=== PATIENT | male | born 1975 | race Two or more races ===

== ENCOUNTER 2016-12-17 04:56 | Emergency (ER) | payer MEDICAID ==
[~2016-12-17] VITALS: Ht 175.3 cm; Wt 108.9 kg
[~2016-12-17 04:56] MED LIST: CARI-316; CEPH500C; GLYB5TAB8 PO; METF-370; NAPR-607; PANT1INJ3; Q-PAP; SIMV-13
[2016-12-17 06:45] LABS: Basophils # (auto) 0 uL; Basophils % (auto) 0.2 % (0.0-2.0); CONDITION Y; Eosinophils # (auto) 0.1 uL; Hematocrit 39.9 % (41.0-53.0); Hemoglobin 13.5 g/dL (13.5-17.5); Lymphocytes # (auto) 1.7 uL; Lymphocytes % (auto) 20.5 % (10.0-50.0); Mean Corpuscular Hemoglobin 31.7 pg (28.0-32.0); Mean Corpuscular Hgb Conc. 33.9 g/dL (32.0-36.0); Mean Corpuscular Volume 93.6 fL (80.0-100.0); Mean Platelet Volume 6.9 fL (7.4-10.4); Monocytes # (auto) 0.5 uL; Monocytes % (auto) 6.2 % (0.0-12.0); Neutrophils % (auto) 72.1 % (37.0-80.0); Platelet Count (auto) 239 10^3/uL (140-450); Red Cell Distribution Width 13.7 % (11.6-16.0); White Blood Cell 8.4 10^3/uL (4.4-10.8)
[2016-12-17 07:07] LABS: Albumin 3.7 g/dL (3.4-5.0); BUN/Creatinine Ratio 20.3; Bilirubin, Total 0.6 mg/dL (0.2-1.0); Calcium 8.1 mg/dL (8.5-10.1); Magnesium 2.5 mg/dL (1.6-2.6); Potassium 3.2 mmol/L (3.5-5.1); Total Protein 6.9 g/dL (6.4-8.2)
[2016-12-17] MEDS ORDERED: SODIUM CHLORIDE 0.9% 1,000 ML IV ONE ×2 (07:57)
[2016-12-17] MEDS ORDERED: THIAMINE INJ 100 MG, MULTIPLE VITAMIN 10 ML, FOLIC ACID 1 MG, MAGNESIUM SULF SDV 50% 8 ... IV SCH ×5 (12:00)
[2016-12-17 13:37] VITALS: BP 135/87
[2016-12-17] MEDS ORDERED: POTASSIUM CHL 20 Meq TABLET PO ONE (14:00)
[2016-12-17 14:01] LABS: Urine RBC None Seen /hpf (0 - 3)
[2016-12-17 14:17] LABS: Urine Bilirubin Negative (Negative); Urine Blood Negative /uL (Negative); Urine Color Yellow (Yellow); Urine Glucose Normal (Normal); Urine Ketone Negative (Negative); Urine Mucus FEW (None Seen); Urine Nitrite Negative (Negative); Urine pH 5.5 (5.0-8.0)
== END 2016-12-17 14:47 | disposition home or self-care (01) ==
LOC: ER 04:56
DX: S05.11XA Contusion of eyeball and orbital tissues, right eye, initial encounter (principal); G92 Toxic encephalopathy; R41.82 Altered mental status, unspecified; E11.9 Type 2 diabetes mellitus without complications; I10 Essential (primary) hypertension; Z88.2 Allergy status to sulfonamides; X58.XXXA Exposure to other specified factors, initial encounter; Y93.89 Activity, other specified; Y99.8 Other external cause status; Y92.89 Other specified places as the place of occurrence of the external cause
CPT/HCPCS: 36415; 70450; 80053; 80307; 80320; 81001; 83735; 84484; 85025; 93005; 96361; 96365; 96366; 99285; J3411; J3475; J7030

== ENCOUNTER → 2020-01-28 | Emergency (ER) | payer SELFPAY ==
[~2020-01-28] VITALS: Ht 182.9 cm; Wt 113.4 kg
[~2020-01-28] MED LIST changes: -CARI-316; +CARI350T22; +LORazepam 2MG/ML-1ML VIAL IV ONE; +LORazepam 2MG/ML-1ML VIAL ONE; -NAPR-607; +NAPR500T31; +TETANUS-DIPTH-ACEL PERTUSSIS 0.5ML SYR Tdap IM ONE; +cefTRIAXone 1GM/50ML D5W 50 ML IV ONE
[2020-01-28 22:02] LABS: Basophils # (auto) 0 10 ^3/uL (0-0.2); Basophils % (auto) 0.1 % (0.0-2.0); Eosinophils # (auto) 0 10 ^3/uL (0-0.8); Eosinophils % (auto) 0.3 % (0.0-7.0); Hematocrit 47.4 % (41.0-53.0); Hemoglobin 15.9 g/dL (13.5-17.5); Lymphocytes % (auto) 11.2 % (10.0-50.0); Mean Corpuscular Hemoglobin 31.7 pg (28.0-32.0); Mean Corpuscular Hgb Conc. 33.5 g/dL (32.0-36.0); Mean Corpuscular Volume 94.4 fL (80.0-100.0); Monocytes # (auto) 0.5 10 ^3/uL (0-1.3); Monocytes % (auto) 5.5 % (0.0-12.0); Neutrophils # (auto) 7.6 10 ^3/uL (1.6-8.6); Neutrophils % (auto) 82.9 % (37.0-80.0); Nucleated Red Blood Cells % 0.1 %; Platelet Count (auto) 203 10^3/uL (140-450); Red Blood Cells 5.03 10^6/uL (4.5-5.90); Red Cell Distribution Width 13.6 % (11.8-14.3); White Blood Cell 9.2 10^3/uL (4.4-10.8)
[2020-01-28 22:20] LABS: Albumin 3.5 g/dL (3.4-5.0)
[2020-01-28 22:23] LABS: Bilirubin, Total 0.4 mg/dL (0.2-1.0); Total Protein 6.9 g/dL (6.4-8.2)
[2020-01-29 00:05] VITALS: BP 127/83
[2020-01-29 00:25] LABS: Urine Bacteria FEW /hpf (None Seen); Urine Blood Negative /uL (Negative); Urine Hyaline Cast FEW /lpf (0 - 2); Urine Specific Gravity 1.032 (1.001-1.035); Urine WBC 1 /hpf (0 - 3)
[2020-01-29 00:36] LABS: Amphetamine Screen, Urine NEGATIVE (NEGATIVE); Barbiturate Scree,Urine NEGATIVE (NEGATIVE); Benzodiazephine Screen, Urine NEGATIVE (NEGATIVE); Cannabinoid Screen, Urine POSITIVE (NEGATIVE); Cocaine Screen, Urine NEGATIVE (NEGATIVE); Opiate Scree,Urine NEGATIVE (NEGATIVE); Phencyclidine Screen, Urine NEGATIVE (NEGATIVE)
== END | disposition home or self-care (01) ==
LOC: EDUNIT# 19:39 → EDBD 19:49 → ER 19:49
DX: S06.5X9A Traumatic subdural hemorrhage with loss of consciousness of unspecified duration, initial encounter (principal); S09.90XA Unspecified injury of head, initial encounter; H57.89 Other specified disorders of eye and adnexa; F10.920 Alcohol use, unspecified with intoxication, uncomplicated; E11.9 Type 2 diabetes mellitus without complications; I10 Essential (primary) hypertension; Z79.899 Other long term (current) drug therapy; Z79.84 Long term (current) use of oral hypoglycemic drugs; Z88.2 Allergy status to sulfonamides; V29.9XXA Motorcycle rider (driver) (passenger) injured in unspecified traffic accident, initial encounter; Y93.89 Activity, other specified; Y92.89 Other specified places as the place of occurrence of the external cause; Y99.8 Other external cause status
CPT/HCPCS: 36415; 70450; 70486; 72125; 72131; 80053; 80307; 80320; 81001; 82962; 85025; 90471; 90715; 96365; 96375; 99285; J0696; J2060

== ENCOUNTER 2020-02-06 02:41 | Emergency (ER) | payer SELFPAY ==
[~2020-02-06] VITALS: Ht 182.9 cm; Wt 136.1 kg
[~2020-02-06 02:41] MED LIST changes: -LORazepam 2MG/ML-1ML VIAL IV ONE; -LORazepam 2MG/ML-1ML VIAL ONE; -TETANUS-DIPTH-ACEL PERTUSSIS 0.5ML SYR Tdap IM ONE; -cefTRIAXone 1GM/50ML D5W 50 ML IV ONE
[2020-02-06] MEDS ORDERED: InsuLIN REG 1unit/0.01ml Soln (100units/ml) IV ONE (03:45)
[2020-02-06] MEDS ORDERED: SODIUM CHLORIDE 0.9% 1,000 ML IV ONE (03:45)
[2020-02-06 04:07] LABS: Basophils # (auto) 0 10 ^3/uL (0-0.2); Basophils % (auto) 0.4 % (0.0-2.0); Eosinophils # (auto) 0 10 ^3/uL (0-0.8); Eosinophils % (auto) 0.2 % (0.0-7.0); Hematocrit 50.3 % (41.0-53.0); Hemoglobin 17.2 g/dL (13.5-17.5); Lymphocytes # (auto) 2.2 10 ^3/uL (0.4-5.4); Lymphocytes % (auto) 18.2 % (10.0-50.0); Mean Corpuscular Hemoglobin 32.1 pg (28.0-32.0); Mean Corpuscular Hgb Conc. 34.2 g/dL (32.0-36.0); Mean Corpuscular Volume 93.8 fL (80.0-100.0); Monocytes # (auto) 0.9 10 ^3/uL (0-1.3); Monocytes % (auto) 7.7 % (0.0-12.0); Neutrophils % (auto) 73.5 % (37.0-80.0); Nucleated Red Blood Cells % 0.6 %; Platelet Count (auto) 331 10^3/uL (140-450); Red Blood Cells 5.36 10^6/uL (4.5-5.90); Red Cell Distribution Width 13.7 % (11.8-14.3); White Blood Cell 12.2 10^3/uL (4.4-10.8)
[2020-02-06 04:15] VITALS: BP 142/70
[2020-02-06 04:27] LABS: Albumin 4.5 g/dL (3.4-5.0); Calcium 9.3 mg/dL (8.5-10.1); Potassium 4.1 mmol/L (3.5-5.1)
[2020-02-06 04:30] LABS: BUN/Creatinine Ratio 10.8; Bilirubin, Total 0.4 mg/dL (0.2-1.0); Total Protein 8.5 g/dL (6.4-8.2)
[2020-03-07] MEDS ORDERED: GLIP5TAB12 PO (09:25)
[2020-03-07] MEDS ORDERED: METF-372 PO (09:25)
[2020-03-07] MEDS ORDERED: SIMV40TA96 PO (09:25)
[2020-03-07] MEDS ORDERED: PANT40TA2 PO (09:26)
[2020-03-07] MEDS ORDERED: GLYB5TAB8 PO (11:31)
== END 2020-02-06 05:16 ==
LOC: ER 02:43
DX: E11.65 Type 2 diabetes mellitus with hyperglycemia (principal); I10 Essential (primary) hypertension; E86.0 Dehydration; Z79.899 Other long term (current) drug therapy; Z79.84 Long term (current) use of oral hypoglycemic drugs
CPT/HCPCS: 36415; 80053; 82962; 85025; 96361; 96374; 99283; J1815

== ENCOUNTER 2020-03-05 19:54 | Inpatient (IN) | payer MEDICAID, OTHER ==
[~2020-03-05] VITALS: Ht 190.5 cm; Wt 90.7 kg
[2020-03-05] MEDS ORDERED: SODIUM CHLORIDE 0.9% 1,000 ML IV ONE (20:15)
[2020-03-05] MEDS ORDERED: InsuLIN REG 1unit/0.01ml Soln (100units/ml) IV ONE (20:15)
[2020-03-05 21:25] LABS: Basophils # (auto) 0 10 ^3/uL (0-0.2); Basophils % (auto) 0.3 % (0.0-2.0); Eosinophils # (auto) 0 10 ^3/uL (0-0.8); Eosinophils % (auto) 0.4 % (0.0-7.0); Hematocrit 49.2 % (41.0-53.0); Hemoglobin 16.1 g/dL (13.5-17.5); Lymphocytes # (auto) 1.3 10 ^3/uL (0.4-5.4); Lymphocytes % (auto) 25.6 % (10.0-50.0); Mean Corpuscular Hemoglobin 30.8 pg (28.0-32.0); Mean Corpuscular Hgb Conc. 32.6 g/dL (32.0-36.0); Mean Corpuscular Volume 94.4 fL (80.0-100.0); Monocytes # (auto) 0.3 10 ^3/uL (0-1.3); Monocytes % (auto) 6.4 % (0.0-12.0); Neutrophils # (auto) 3.3 10 ^3/uL (1.6-8.6); Neutrophils % (auto) 67.3 % (37.0-80.0); Nucleated Red Blood Cells % 0.1 %; Platelet Count (auto) 219 10^3/uL (140-450); Red Blood Cells 5.21 10^6/uL (4.5-5.90); Red Cell Distribution Width 14.1 % (11.8-14.3); White Blood Cell 4.9 10^3/uL (4.4-10.8)
[2020-03-05 21:36] LABS: Urine WBC None Seen /hpf (0 - 3)
[2020-03-05 22:25] LABS: Urine Bacteria NONE SEEN /hpf (None Seen); Urine Blood Negative /uL (Negative); Urine Specific Gravity 1.036 (1.001-1.035)
[2020-03-05 22:39] LABS: Albumin 3.6 g/dL (3.4-5.0); Anion Gap 9 (5-15); Blood Urea Nitrogen 11 mg/dL (7-18); Calcium 8.7 mg/dL (8.5-10.1); Carbon Dioxide 24 mmol/L (21-32); Chloride 104 mmol/L (98-107); Potassium 3.9 mmol/L (3.5-5.1); Sodium 137 mmol/L (136-145)
[2020-03-05 22:42] LABS: Alanine Aminotransferase 60 U/L (16-61); Alkaline Phosphatase 111 U/L (45-117); Aspartate Aminotransferase 32 U/L (15-37); BUN/Creatinine Ratio 12.9; Bilirubin, Total 0.3 mg/dL (0.2-1.0); GFR African American 125 mL/min; GFR Non-African American 103 mL/min; Magnesium 2.6 mg/dL (1.6-2.6); Total Protein 7.3 g/dL (6.4-8.2)
[2020-03-05 23:00] LABS: Glucose 479 mg/dL (74-106)
[2020-03-06 02:35] LABS: INR 0.97 (0.9-1.15); Partial Thromboplastin Time 23.7 sec (23.0-31.2)
[2020-03-06] MEDS ORDERED: ONDANSETRON HCL 4 MG/2 ML VIAL IV PRN (03:15)
[2020-03-06 04:15] VITALS: BP 127/71
[2020-03-06 05:00] VITALS: BP 127/79
[2020-03-06 08:35] VITALS: BP 117/68
[2020-03-06] MEDS: FAMOTIDINE 20 MG TAB PO SCH ×2 (09:06→22:20)
[2020-03-06 13:00] VITALS: BP 135/96
[2020-03-06] MEDS ORDERED: DEXTROSE (50%) 50ML SYRG IV PRN (14:30)
[2020-03-06 15:26] LABS: Alcohol, Urine < 3.0 mg/dL (0-10); Amphetamine Screen, Urine NEGATIVE (NEGATIVE); Barbiturate Scree,Urine NEGATIVE (NEGATIVE); Cannabinoid Screen, Urine POSITIVE (NEGATIVE); Cocaine Screen, Urine NEGATIVE (NEGATIVE); Opiate Scree,Urine NEGATIVE (NEGATIVE); Phencyclidine Screen, Urine NEGATIVE (NEGATIVE)
[2020-03-06 15:33] LABS: Benzodiazephine Screen, Urine NEGATIVE (NEGATIVE)
[2020-03-06 16:32] VITALS: BP 147/88
[2020-03-06] MEDS ORDERED: glipiZIDE 5 MG TAB PO SCH (18:00)
[2020-03-06] MEDS: InsuLIN REG 1unit/0.01ml Soln (100units/ml) SC SCH ×2 (18:08→22:20)
[2020-03-06] MEDS: ACCU-CHEK COMFORT CURVE STRIP VI SCH ×2 (18:09→22:20)
[2020-03-06] MEDS: metFORMIN HYDROCHLORIDE 500 MG TAB PO SCH (18:09)
[2020-03-06 21:53] VITALS: BP 139/81
[2020-03-07 05:29] VITALS: BP 139/85
[2020-03-07] MEDS: InsuLIN REG 1unit/0.01ml Soln (100units/ml) SC SCH ×2 (06:35→12:03)
[2020-03-07] MEDS: ACCU-CHEK COMFORT CURVE STRIP VI SCH ×2 (06:37→12:04)
[2020-03-07 07:19] LABS: BUN/Creatinine Ratio 17.6; Potassium 4.4 mmol/L (3.5-5.1)
[2020-03-07 07:23] LABS: Cholesterol 235 mg/dL (< 200); HDL Cholesterol 47 mg/dL (40-59); LDL Cholesterol 170 mg/dL (< 100); Triglycerides 213 mg/dL (< 150)
[2020-03-07] MEDS: metFORMIN HYDROCHLORIDE 500 MG TAB PO SCH (08:27)
[2020-03-07 09:00] VITALS: BP 124/72
[2020-03-07] MEDS ORDERED: METF-372 PO (09:25)
[2020-03-07] MEDS ORDERED: SIMV40TA96 PO (09:25)
[2020-03-07] MEDS ORDERED: GLIP5TAB12 PO (09:25)
[2020-03-07] MEDS ORDERED: PANT40TA2 PO (09:26)
[2020-03-07] MEDS: FAMOTIDINE 20 MG TAB PO SCH (09:43)
[2020-03-07] MEDS ORDERED: GLYB5TAB8 PO (11:31)
[2020-03-07 13:00] VITALS: BP 105/50
[2020-03-07 14:00] VITALS: BP 124/79
== END 2020-03-07 15:40 | disposition home or self-care (01) | DRG 420 ==
LOC: EDBD 19:54 → ER 19:54 → OVERFLOW 19:55 → CENTRAL 03-06 04:04
PROVIDERS: ADMIT Nurse Practitioner; ATTEND Internal Medicine
DX: E11.65 Type 2 diabetes mellitus with hyperglycemia (principal); I10 Essential (primary) hypertension; E78.5 Hyperlipidemia, unspecified; F84.0 Autistic disorder; Z83.3 Family history of diabetes mellitus; Z79.84 Long term (current) use of oral hypoglycemic drugs; Z91.19 Patient's noncompliance with other medical treatment and regimen; E66.9 Obesity, unspecified; Z68.25 Body mass index [BMI] 25.0-25.9, adult; Z88.2 Allergy status to sulfonamides; Z88.8 Allergy status to other drugs, medicaments and biological substances
CPT/HCPCS: 36415; 71045; 80048; 80053; 80061; 80307; 81001; 82010; 82962; 83036; 83735; 83880; 84443; 84484; 85025; 85610; 85730; 93005; 96361; 96374; 99291; G0378; J1815

== ENCOUNTER 2021-06-07 14:52 | Emergency (ER) | payer OTHER ==
[~2021-06-07] VITALS: Ht 170.2 cm; Wt 90.7 kg
[~2021-06-07 14:52] MED LIST changes: -METF-370; +METF-372 PO; +PANT40TA2 PO; +SIMV40TA2 PO
[2021-06-07 15:00] VITALS: BP 113/57
[2021-06-07] MEDS ORDERED: DEXTROSE (50%) 50ML SYRG IV PRN (15:15)
[2021-06-07] MEDS ORDERED: INSULIN LANTUS (GLARGINE) 1 /0.01ml (100units/ml) SC ONE (15:15)
[2021-06-07] MEDS ORDERED: SODIUM CHLORIDE 0.9% 1,000 ML IV ONE ×2 (15:15)
[2021-06-07] MEDS ORDERED: InsuLIN R (HUMAN) 100 UNITS in SODIUM CHL 0.9% 99 ML IV SCH (15:15)
[2021-06-07] MEDS ORDERED: ACCU-CHEK COMFORT CURVE STRIP VI SCH (16:30)
[2021-06-08] MEDS ORDERED: INSULIN LANTUS (GLARGINE) 1 /0.01ml (100units/ml) SC SCH (10:00)
== END 2021-06-07 18:53 | disposition left against medical advice (07) ==
LOC: ER 14:52 → EDBD 14:52 → ER 18:53
DX: E11.10 Type 2 diabetes mellitus with ketoacidosis without coma (principal); F10.129 Alcohol abuse with intoxication, unspecified; I10 Essential (primary) hypertension; R41.82 Altered mental status, unspecified; Y90.8 Blood alcohol level of 240 mg/100 ml or more
CPT/HCPCS: 36600; 71045; 82805; 99283; J1815

== ENCOUNTER 2021-07-23 19:22 | Inpatient (IN) | payer OTHER ==
[~2021-07-23] VITALS: Ht 182.9 cm; Wt 120.2 kg
[2021-07-23] MEDS ORDERED: ONDANSETRON HCL 4 MG/2 ML VIAL IV ONE (20:30)
[2021-07-23] MEDS ORDERED: FAMOTIDINE (10MG/ML) 2ML VL IV ONE (20:30)
[2021-07-23] MEDS ORDERED: ALUM & MAG HYDROX-SIMETH LIQ(MAALOX) 30 ML PO ONE (20:30)
[2021-07-23 23:39] LABS: Basophils # (auto) 0.2 10 ^3/uL (0-0.2); Eosinophils # (auto) 0 10 ^3/uL (0-0.8); Hematocrit 39.6 % (41.0-53.0); Hemoglobin 13.4 g/dL (13.5-17.5); Lymphocytes # (auto) 0.8 10 ^3/uL (0.4-5.4); Lymphocytes % (auto) 4.7 % (10.0-50.0); Mean Corpuscular Volume 91.3 fL (80.0-100.0); Monocytes # (auto) 1.3 10 ^3/uL (0-1.3); Monocytes % (auto) 7.5 % (0.0-12.0); Neutrophils # (auto) 14.8 10 ^3/uL (1.6-8.6); Neutrophils % (auto) 86.8 % (37.0-80.0); Red Blood Cells 4.33 10^6/uL (4.5-5.90)
[2021-07-23] MEDS ORDERED: KETOROLAC TROMETH 30 MG/ML 1ML VIAL IM ONE (23:45)
[2021-07-23 23:46] LABS: Albumin 1.9 g/dL (3.4-5.0); Calcium 7.1 mg/dL (8.5-10.1); Potassium 3.1 mmol/L (3.5-5.1)
[2021-07-23 23:54] LABS: BUN/Creatinine Ratio 17.1; Bilirubin, Total 1.2 mg/dL (0.2-1.0); Total Protein 5.7 g/dL (6.4-8.2)
[2021-07-24] MEDS ORDERED: KETOROLAC TROMETH 30 MG/ML 1ML VIAL IV ONE (00:15)
[2021-07-24] MEDS ORDERED: POTASSIUM EFFERVESENT TAB 25 MEQ PO ONE (01:00)
[2021-07-24] MEDS: POTASSIUM CHL 10MEQ/50ML 50 ML IV SCH ×2 (01:45→02:39)
[2021-07-24 02:11] LABS: Urine Bacteria NONE SEEN /hpf (None Seen); Urine Blood 2+ /uL (Negative); Urine Specific Gravity 1.015 (1.001-1.035); Urine WBC 1832 /hpf (0 - 3); Urine WBC Clumps PRESENT /hpf (None Seen)
[2021-07-24] MEDS ORDERED: cefTRIAXone 1GM/50ML D5W 50 ML IV ONE (02:15)
[2021-07-24] MEDS ORDERED: DEXTROSE (50%) 50ML SYRG IV PRN (02:30)
[2021-07-24] MEDS ORDERED: ACETAMINOPHEN 325 MG TAB PO PRN (02:30)
[2021-07-24] MEDS ORDERED: DOCUSATE SOD 100 MG CAP PO PRN (02:30)
[2021-07-24] MEDS ORDERED: SODIUM CHLORIDE 0.9% 1,000 ML IV SCH (02:30)
[2021-07-24] MEDS ORDERED: ONDANSETRON HCL 4 MG/2 ML VIAL IV PRN (02:30)
[2021-07-24] MEDS ORDERED: ALBUMIN 25% 100 ML IV ONE (03:00)
[2021-07-24] MEDS ORDERED: MORPHINE SULFATE INJECTION 2 MG/ML SYRG IV PRN (03:30)
[2021-07-24] MEDS ORDERED: NITROGLYCERIN 0.4 MG SL TAB SL PRN (03:30)
[2021-07-24 06:04] LABS: Basophils # (auto) 0 10 ^3/uL (0-0.2); Basophils % (auto) 0.1 % (0.0-2.0); Eosinophils # (auto) 0 10 ^3/uL (0-0.8); Eosinophils % (auto) 0.1 % (0.0-7.0); Hematocrit 43.3 % (41.0-53.0); Hemoglobin 14.5 g/dL (13.5-17.5); Lymphocytes # (auto) 1.3 10 ^3/uL (0.4-5.4); Lymphocytes % (auto) 8.8 % (10.0-50.0); Mean Corpuscular Hemoglobin 31.1 pg (28.0-32.0); Mean Corpuscular Hgb Conc. 33.5 g/dL (32.0-36.0); Mean Corpuscular Volume 92.7 fL (80.0-100.0); Monocytes # (auto) 1.4 10 ^3/uL (0-1.3); Monocytes % (auto) 9.6 % (0.0-12.0); Neutrophils # (auto) 12.1 10 ^3/uL (1.6-8.6); Neutrophils % (auto) 81.4 % (37.0-80.0); Nucleated Red Blood Cells % 0.1 %; Red Blood Cells 4.67 10^6/uL (4.5-5.90); Red Cell Distribution Width 12.9 % (11.8-14.3); White Blood Cell 14.9 10^3/uL (4.4-10.8)
[2021-07-24 06:29] LABS: Albumin 2.6 g/dL (3.4-5.0); Calcium 8.6 mg/dL (8.5-10.1); Potassium 3.3 mmol/L (3.5-5.1)
[2021-07-24 06:31] LABS: BUN/Creatinine Ratio 16.2
[2021-07-24 06:49] LABS: Bilirubin, Total 1.2 mg/dL (0.2-1.0); Total Protein 6.6 g/dL (6.4-8.2)
[2021-07-24] MEDS: InsuLIN REG 1unit/0.01ml Soln (100units/ml) SC SCH ×4 (07:00→23:56)
[2021-07-24] MEDS: ACCU-CHEK COMFORT CURVE STRIP VI SCH ×4 (07:25→23:56)
[2021-07-24] MEDS: FAMOTIDINE (10MG/ML) 2ML VL IV SCH ×2 (09:42→23:54)
[2021-07-24] MEDS: SODIUM CHLORIDE 0.9% 1,000 ML IV SCH ×2 (12:30→13:30)
[2021-07-24 13:00] VITALS: BP_SYST 107; BP_SYST 126; BP_DIAS 69; BP_DIAS 70
[2021-07-24 17:12] VITALS: BP 124/52
[2021-07-24] MEDS: HYDROcodone-ACET 5/325MG TAB PO PRN (19:32)
[2021-07-24 22:00] VITALS: BP 96/57
[2021-07-25 05:00] VITALS: BP 118/42
[2021-07-25 06:23] LABS: Basophils # (auto) 0 10 ^3/uL (0-0.2); Basophils % (auto) 0.2 % (0.0-2.0); Eosinophils # (auto) 0 10 ^3/uL (0-0.8); Eosinophils % (auto) 0.1 % (0.0-7.0); Hematocrit 43.6 % (41.0-53.0); Hemoglobin 14.9 g/dL (13.5-17.5); Lymphocytes # (auto) 0.8 10 ^3/uL (0.4-5.4); Lymphocytes % (auto) 5.8 % (10.0-50.0); Mean Corpuscular Hgb Conc. 34.2 g/dL (32.0-36.0); Mean Corpuscular Volume 90.7 fL (80.0-100.0); Monocytes # (auto) 1.5 10 ^3/uL (0-1.3); Monocytes % (auto) 10.8 % (0.0-12.0); Neutrophils # (auto) 11.7 10 ^3/uL (1.6-8.6); Neutrophils % (auto) 83.1 % (37.0-80.0); Nucleated Red Blood Cells % 0.1 %; Red Blood Cells 4.81 10^6/uL (4.5-5.90); Red Cell Distribution Width 13.1 % (11.8-14.3); White Blood Cell 14.1 10^3/uL (4.4-10.8)
[2021-07-25] MEDS: InsuLIN REG 1unit/0.01ml Soln (100units/ml) SC SCH ×4 (06:25→22:07)
[2021-07-25] MEDS: ACCU-CHEK COMFORT CURVE STRIP VI SCH ×4 (06:25→22:08)
[2021-07-25] MEDS: HYDROcodone-ACET 5/325MG TAB PO PRN ×2 (06:26→16:33)
[2021-07-25 06:33] LABS: Potassium 3.4 mmol/L (3.5-5.1)
[2021-07-25 06:41] LABS: Albumin 2.4 g/dL (3.4-5.0); BUN/Creatinine Ratio 16.9; Bilirubin, Total 1.3 mg/dL (0.2-1.0); Calcium 8.4 mg/dL (8.5-10.1); Total Protein 7.1 g/dL (6.4-8.2)
[2021-07-25 09:00] VITALS: BP 100/61
[2021-07-25] MEDS: FAMOTIDINE (10MG/ML) 2ML VL IV SCH ×2 (09:44→22:07)
[2021-07-25] MEDS: cefTRIAXone 1GM/50ML D5W 50 ML IV SCH (09:44)
[2021-07-25] MEDS: SODIUM CHLORIDE 0.9% 1,000 ML IV SCH ×3 (09:52→22:06)
[2021-07-25 12:53] VITALS: BP 105/72
[2021-07-25 16:32] VITALS: BP 122/81
[2021-07-26] MEDS: SODIUM CHLORIDE 0.9% 1,000 ML IV SCH ×3 (01:57→18:03)
[2021-07-26 05:51] VITALS: BP 120/76
[2021-07-26] MEDS: HYDROcodone-ACET 5/325MG TAB PO PRN ×3 (06:15→21:59)
[2021-07-26] MEDS: ACCU-CHEK COMFORT CURVE STRIP VI SCH ×4 (06:15→22:34)
[2021-07-26] MEDS: InsuLIN REG 1unit/0.01ml Soln (100units/ml) SC SCH ×4 (06:16→22:35)
[2021-07-26 09:00] VITALS: BP 135/63
[2021-07-26] MEDS: cefTRIAXone 1GM/50ML D5W 50 ML IV SCH (09:11)
[2021-07-26] MEDS: FAMOTIDINE (10MG/ML) 2ML VL IV SCH ×2 (09:11→22:33)
[2021-07-26 13:28] VITALS: BP 158/79
[2021-07-26 17:26] VITALS: BP 128/89
[2021-07-26 22:00] VITALS: BP 114/67
[2021-07-27] MEDS: SODIUM CHLORIDE 0.9% 1,000 ML IV SCH ×2 (00:30→08:36)
[2021-07-27] MEDS: HYDROcodone-ACET 5/325MG TAB PO PRN (02:33)
[2021-07-27 05:00] VITALS: BP 128/91
[2021-07-27] MEDS: ACCU-CHEK COMFORT CURVE STRIP VI SCH ×2 (06:39→12:49)
[2021-07-27] MEDS: InsuLIN REG 1unit/0.01ml Soln (100units/ml) SC SCH ×2 (06:40→12:51)
[2021-07-27 08:00] VITALS: BP 147/66
[2021-07-27] MEDS: cefTRIAXone 1GM/50ML D5W 50 ML IV SCH (08:37)
[2021-07-27] MEDS: FAMOTIDINE (10MG/ML) 2ML VL IV SCH (09:23)
[2021-07-27] MEDS ORDERED: TRAM50TA2 PO (11:00)
[2021-07-27] MEDS ORDERED: CIPR-173 PO (11:00)
[2021-07-27 12:00] VITALS: BP 125/74
[2021-07-27 12:31] VITALS: BP 147/66
== END 2021-07-27 18:14 | disposition home or self-care (01) | DRG 720 ==
LOC: EDBD 19:22 → ER 19:26 → OVERFLOW 07-24 03:28 → WEST WING 07-24 10:54
PROVIDERS: ADMIT Nurse Practitioner Family; ATTEND Family Medicine
DX: A41.9 Sepsis, unspecified organism (principal); E44.0 Moderate protein-calorie malnutrition; E11.21 Type 2 diabetes mellitus with diabetic nephropathy; E11.40 Type 2 diabetes mellitus with diabetic neuropathy, unspecified; E87.1 Hypo-osmolality and hyponatremia; E88.09 Other disorders of plasma-protein metabolism, not elsewhere classified; N12 Tubulo-interstitial nephritis, not specified as acute or chronic; B96.20 Unspecified Escherichia coli [E. coli] as the cause of diseases classified elsewhere; Z20.822 Contact with and (suspected) exposure to COVID-19; E87.6 Hypokalemia; K74.60 Unspecified cirrhosis of liver; I10 Essential (primary) hypertension; Z79.84 Long term (current) use of oral hypoglycemic drugs; Z68.35 Body mass index [BMI] 35.0-35.9, adult; Z83.3 Family history of diabetes mellitus
CPT/HCPCS: 36415; 36600; 74176; 80053; 81001; 82010; 82140; 82805; 82962; 83036; 83605; 83690; 84484; 85025; 87040; 87086; 87088; 87186; 87426; 93005; 96365; 96368; 96375; G0378; J0696; J1815; J1885; J2405; J3490; P9047

== ENCOUNTER 2022-02-20 00:49 | Emergency (ER) | payer OTHER ==
[~2022-02-20] VITALS: Ht 182.9 cm; Wt 95.0 kg
[~2022-02-20 00:49] MED LIST changes: -CARI350T22; -CEPH500C; +CIPR-173 PO; -GLYB5TAB8 PO; -METF-372 PO; -NAPR500T31; -PANT1INJ3; -PANT40TA2 PO; -Q-PAP; -SIMV-13; -SIMV40TA2 PO; +TRAM50TA2 PO
[2022-02-20 01:57] VITALS: BP 124/86
[2022-02-20] MEDS ORDERED: cefTRIAXone SOD 1,000 MG VL IM ONE (04:00)
[2022-02-20] MEDS ORDERED: KETOROLAC TROMETH 30 MG/ML 1ML VIAL IM ONE (04:00)
[2022-02-20] MEDS ORDERED: IBUP800T26 PO (04:17)
[2022-02-20] MEDS ORDERED: CLIN300C8 PO (04:17)
== END 2022-02-20 04:49 | disposition home or self-care (01) ==
LOC: EDBD 00:49 → ER 00:49
DX: L03.221 Cellulitis of neck (principal); L73.9 Follicular disorder, unspecified; R23.8 Other skin changes
CPT/HCPCS: 96372; 99284; J0696; J1885

== ENCOUNTER 2022-10-10 01:49 | Emergency (ER) | payer OTHER ==
[~2022-10-10] VITALS: Ht 180.3 cm; Wt 90.0 kg
[~2022-10-10 01:49] MED LIST changes: +CLIN300C8 PO; +IBUP800T26 PO
[2022-10-10 02:07] VITALS: BP 137/87
[2022-10-10] MEDS ORDERED: SODIUM CHLORIDE 0.9% 2,000 ML IV ONE (02:15)
[2022-10-10 02:32] LABS: Basophils # (auto) 0 10 ^3/uL (0-0.2); Basophils % (auto) 0.5 % (0.0-2.0); Eosinophils # (auto) 0 10 ^3/uL (0-0.8); Eosinophils % (auto) 0.4 % (0.0-7.0); Hematocrit 47.8 % (41.0-53.0); Hemoglobin 15.5 g/dL (13.5-17.5); Lymphocytes # (auto) 1.7 10 ^3/uL (0.4-5.4); Lymphocytes % (auto) 26.9 % (10.0-50.0); Mean Corpuscular Hemoglobin 31.1 pg (28.0-32.0); Mean Corpuscular Hgb Conc. 32.5 g/dL (32.0-36.0); Mean Corpuscular Volume 95.5 fL (80.0-100.0); Monocytes # (auto) 0.4 10 ^3/uL (0-1.3); Neutrophils % (auto) 65.2 % (37.0-80.0); Nucleated Red Blood Cells % 0.2 %; Red Cell Distribution Width 13.1 % (11.8-14.3); White Blood Cell 6.2 10^3/uL (4.4-10.8)
[2022-10-10 02:47] LABS: INR 0.9 (0.9-1.15); Partial Thromboplastin Time 24.8 sec (24.6-33.4)
[2022-10-10 04:11] LABS: BUN/Creatinine Ratio 15.7 (10.0-20.0); Bilirubin, Total 0.3 mg/dL (0.2-1.0)
[2022-10-10 04:12] LABS: Albumin 3.3 g/dL (3.4-5.0); Magnesium 2.5 mg/dL (1.6-2.6); Total Protein 7.8 g/dL (6.4-8.2)
== END 2022-10-10 05:10 | disposition left against medical advice (07) ==
LOC: ER 01:49 → EDBD 01:49 → ER 05:10
DX: E11.10 Type 2 diabetes mellitus with ketoacidosis without coma (principal); E11.65 Type 2 diabetes mellitus with hyperglycemia; E86.0 Dehydration; F12.10 Cannabis abuse, uncomplicated; I10 Essential (primary) hypertension; R06.02 Shortness of breath; Z88.2 Allergy status to sulfonamides
CPT/HCPCS: 36415; 36600; 71045; 80053; 82010; 82805; 83735; 83880; 84484; 85025; 85610; 85730; 96360; 96361; 99284; J7030

== ENCOUNTER 2024-05-02 09:16 | Inpatient (IN) | payer OTHER ==
[~2024-05-02] VITALS: Ht 182.9 cm; Wt 95.6 kg
[~2024-05-02 09:16] MED LIST changes: +CLIN1CAP70 PO; -CLIN300C8 PO; +IBUP-1455 PO; -IBUP800T26 PO
--- NOTE | 2024-05-02 09:31 | ED.PDOC ---
Musculoskeletal HPI Comments 49 year old male BRANDON presents to the ED with chief complaint of right foot pain. Patient reports that he has been experiencing worsening right foot pain with associated redness, swelling, and discharge noted to the toes for the past 2 months. EMS relays patient is homeless and has history of DM, however, he is not taking any medication. Patient denies any numbness, weakness, fever, or chills. Time Seen by MD: 09:28 Reviewed Notes: Nurses Notes, Baked And Graphite Inspector Notes, Medications, Allergies Allergies: Coded Allergies: Sulfamethoxazole w/Trimethoprim (Verified Allergy, Severe, 03/06/20) PRURITUS, THROAT SWELLING Home Meds Active Scripts Ibuprofen Micronized (Ibuprofen) 800 Mg Tab, 800 MG PO TID PRN, #30 TAB Prov:CIELO MENDEZP 02/20/22 Clindamycin Hcl (Clindamycin Hcl) 300 Mg Cap, 1 CAP PO TID for 7 Days, #21 CAP Prov:CIELO MENDEZ 02/20/22 Tramadol Hcl (Tramadol Hcl) 50 Mg Tab, 50 MG PO TID, #30 TAB Prov:DEBRA AGUILLON MD 07/27/21 Ciprofloxacin Hcl (Cipro) 500 Mg Tab, 1 TAB PO BID, #20 TAB Prov:DEBRA AGUILLON MD 07/27/21 Information Source: Patient, Emergency Med Personnel Mode of Arrival: EMS Location: Right Extremity Location: Foot Timing: Months Prehospital treatment: None Severity: Moderate Able to Move Extremity: Yes Bear Weight: Limited Pain: Moderate Mechanism: Spontaneous Circumstances: Preceding Wound Onset of Symptoms: Spontaneous Symptoms: Swelling, Pain, Erythema DVT Risk Factors: NONE Associated signs and symptoms: Swelling, Foot pain Past Medical History PAST MEDICAL HISTORY: DM, HTN Surgical History: Denies all surgeries Family History Family History: Reviewed,noncontributory to illness Social History Smoker: Non-Smoker Alcohol: Heavy Drugs: Marijuana Lives In: Home Constitutional: denies: chills, diaphoresis, fatigue, fever, malaise, sweats, weakness, others EENTM: denies: blurred vision, double vision, ear bleeding, ear discharge, ear drainage, ear pain, ear ringing, eye pain, eye redness, hearing loss, mouth pain, mouth swelling, nasal discharge, nose bleeding, nose congestion, nose pain, photophobia, tearing, throat pain, throat swelling, voice changes, others Respiratory: denies: cough, hemoptysis, orthopnea, SOB at rest, shortness of breath, SOB with excertion, stridor, wheezing, others Cardiovascular: denies: chest pain, dizzy spells, diaphoresis, Dyspnea on exertion, edema, irregular heart beat, left arm pain, lightheadedness, palpitations, PND, syncope, others Gastrointestinal: denies: abdomen distended, abdominal pain, blood streaked bowels, constipated, diarrhea, dysphagia, difficulty swallowing, hematemesis, melena, nausea, poor appetite, poor fluid intake, rectal bleeding, rectal pain, vomiting, others Genitourinary: denies: burning, dysuria, flank pain, frequency, hematuria, incontinence, penile discharge, penile sore, pain, testicle pain, testicle swelling, urgency, others Musculoskeletal: reports: others (Rt foot redness, swelling, and pain); denies: back pain, gout, joint pain, joint swelling, muscle pain, muscle stiffness, neck pain Integumetry: denies: bruises, change in color, change in hair/nails, dryness, laceration, lesions, lumps, rash, wounds, others Allergic/Immunocompromised: denies: Difficulty Healing, Frequent Infections, Hives, Itching, others Hematologic/Lymphatic: denies: anemia, blood clots, easy bleeding, easy bruising, swollen glands, others Endocrine: denies: excessive hunger, excessive sweating, excessive thirst, excessive urination, flushing, intolerance to cold, intolerance to heat, unexplained weight gain, unexplained weight loss, others Psychiatric: denies: anxiety, bipolar disorder, depression, hopeless, panic disorder, schizophrenia, sleepless, suicidal, others All Other Systems: Reviewed and Negative Physical Exam General Appearance: Moderate Distress, Normal HEENT: Normal ENT Inspection, PERRL/EOMI Neck: Full Range of Motion, Non-Tender, Normal, Normal Inspection Respiratory: Chest Non-Tender, Lungs Clear, No Accessory Muscle Use, No Respiratory Distress, Normal Breath Sounds Cardiovascular: No Edema, No JVD, No Murmur, No Gallop, Normal Peripheral Pulses, Regular Rate/Rhythm Breast Exam: Deferred Gastrointestinal: No Organomegaly, Non Tender, No Pulsatile Mass, Normal Bowel Sounds, Soft Genitalia: Deferred Pelvic: Deferred Rectal: Deferred Extremities: No calf tenderness, Normal capillary refill, Normal range of motion, Non-tender, No pedal edema, Pedal edema (Right ) Musculoskeletal : Apperance: Normal Neurologic: Alert, chair springer II-XII nml as Tested, No Motor Deficits, Normal Affect, Normal Mood, No Sensory Deficits Cerebellar Function: NOT DONE Reflexes: NOT DONE Skin: Dry, Normal Color, Warm, Wounds (Right foot) Peripheral Pulses: 3+ Radial (R), 3+ Radial (L) Lymphatic: No Adenopathy Was a procedure done? Was a procedure done?: No Differential Diagnosis EXT Differential Diagnosis: Cellulitis, Sprain, Strain X-Ray, Labs, Meds, VS Vital Signs Date Time Temp Pulse Resp B/P (MAP) Pulse Ox O2 Delivery O2 Flow Rate FiO2 05/02/24 10:55 86 16 120/86 (97) 97 05/02/24 10:55 86 16 97 Room Air 05/02/24 09:59 97.7 90 20 113/80 (91) 96 Lab Test 05/02/24 11:34 05/02/24 10:05 Range/Units POC Glucose 457 *H 70-106 mg/dl White Blood Count 4.7 4.4-10.8 10^3/uL Red Blood Count 5.18 4.5-5.90 10^6/uL Hemoglobin 16.1 13.5-17.5 g/dL Hematocrit 46.3 41.0-53.0 % Mean Corpuscular Volume 89.2 80.0-100.0 fL Mean Corpuscular Hemoglobin 31.0 28.0-32.0 pg Mean Corpuscular Hemoglobin Concent 34.7 32.0-36.0 g/dL Red Cell Distribution Width 13.1 11.8-14.3 % Platelet Count 271 140-450 10^3/uL Mean Platelet Volume 7.5 6.9-10.8 fL Neutrophils (%) (Auto) 61.7 37.0-80.0 % Lymphocytes (%) (Auto) 29.8 10.0-50.0 % Monocytes (%) (Auto) 6.8 0.0-12.0 % Eosinophils (%) (Auto) 1.0 0.0-7.0 % Basophils (%) (Auto) 0.7 0.0-2.0 % Neutrophils # (Auto) 2.9 1.6-8.6 10 ^3/uL Lymphocytes # (Auto) 1.4 0.4-5.4 10 ^3/uL Monocytes # (Auto) 0.3 0-1.3 10 ^3/uL Eosinophils # (Auto) 0 0-0.8 10 ^3/uL Basophils # (Auto) 0 0-0.2 10 ^3/uL Nucleated Red Blood Cells 0.1 % Sodium Level 128 L 136-145 mmol/L Potassium Level 3.3 L 3.5-5.1 mmol/L Chloride Level 92 L 98-107 mmol/L Carbon Dioxide Level 25 20-31 mmol/L Anion Gap 11 5-15 Blood Urea Nitrogen 7 L 9-23 mg/dL Creatinine 0.86 0.700-1.30 mg/dL Glomerular Filtration Rate Calc 105 >90 mL/min BUN/Creatinine Ratio 8.1 L 10.0-20.0 Serum Glucose 594 *H 74-106 mg/dL Calcium Level 9.8 8.7-10.4 mg/dL Current Medications Medications (Trade) Dose Ordered Sig/El Route Start Time Stop Time Status Last Admin Acetaminophen/ Hydrocodone Bitart ([place] 10/325MG Tab) 1 tab ONCE ONCE PO 05/02/24 09:45 05/02/24 09:46 DC 05/02/24 10:51 Piperacillin Sod/ Tazobactam Sod 100 ml @ 100 mls/hr ONCE ONCE IV 05/02/24 09:45 05/02/24 10:44 DC 05/02/24 09:45 Insulin Glargine (Lantus) 15 units ONCE ONCE SC 05/02/24 11:15 05/02/24 11:16 DC 05/02/24 11:41 Sodium Chloride 1,000 ml @ 1,000 mls/hr Q1H ONCE IV 05/02/24 11:15 05/02/24 12:26 DC 05/02/24 11:18 Patient alert. Right foot infection. Does not take care himself. Has diabetes. He is not taking his medication. Blood sugar elevated. Potassium is low. Was given potassium. Establish intravenous access. Was given fluids. Was given insulin. Counseled patient on effects of smoking cigarettes for 15 minutes. Counseled patient on effects of taking drugs for 15 minutes. Reviewed his history. 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 Explained to the patient. Continue cardiac monitoring. Time of 1ST Reevaluation: 10:28 Reevaluation 1ST: Unchanged Patient Education/Counseling: Diagnosis, Treatment Family Education/Counseling: No Family Present Departure 1 Departure Time of Disposition: 10:59 Impression: Primary Impression: Uncontrolled diabetes mellitus Qualified Codes: E13.65 - Other specified diabetes mellitus with hyperglycemia Additional Impression: Cellulitis Qualified Codes: L03.115 - Cellulitis of right lower limb Disposition: ADMITTED INPATIENT Admit to: Med Surg Condition: Guarded Critical Care Note Critical Care Time?: Yes (45 min-critical care time only) Stability Stability form required: No Heart Score Heart Score: Heart Score Response (Comments) Value History N/A 0 EKG N/A 0 Age N/A 0 Risk Factors N/A 0 Troponin N/A 0 Total 0 I personally scribed for BECKY MUNOZ MD ([email or web address]) on 05/02/24 at 09:30. Electronically submitted by Sagar Marin ([email or web address]). BECKY MUNOZ MD May 02, 2024 09:30
[2024-05-02] MEDS: PIPERACILLIN-TAZOB 3.375GM 100 ML IV ONE (09:45)
[2024-05-02 10:19] LABS: Basophils # (auto) 0 10 ^3/uL (0-0.2); Basophils % (auto) 0.7 % (0.0-2.0); Eosinophils # (auto) 0 10 ^3/uL (0-0.8); Hematocrit 46.3 % (41.0-53.0); Hemoglobin 16.1 g/dL (13.5-17.5); Lymphocytes # (auto) 1.4 10 ^3/uL (0.4-5.4); Lymphocytes % (auto) 29.8 % (10.0-50.0); Mean Corpuscular Hgb Conc. 34.7 g/dL (32.0-36.0); Mean Corpuscular Volume 89.2 fL (80.0-100.0); Monocytes # (auto) 0.3 10 ^3/uL (0-1.3); Monocytes % (auto) 6.8 % (0.0-12.0); Neutrophils # (auto) 2.9 10 ^3/uL (1.6-8.6); Neutrophils % (auto) 61.7 % (37.0-80.0); Nucleated Red Blood Cells % 0.1 %; Platelet Count (auto) 271 10^3/uL (140-450); Red Blood Cells 5.18 10^6/uL (4.5-5.90); Red Cell Distribution Width 13.1 % (11.8-14.3); White Blood Cell 4.7 10^3/uL (4.4-10.8)
[2024-05-02 10:24] LABS: Chloride 92 mmol/L (98-107); Potassium 3.3 mmol/L (3.5-5.1); Sodium 128 mmol/L (136-145)
[2024-05-02 10:25] LABS: Anion Gap 11 (5-15); Calcium 9.8 mg/dL (8.7-10.4); Carbon Dioxide 25 mmol/L (20-31)
[2024-05-02 10:30] LABS: BUN/Creatinine Ratio 8.1 (10.0-20.0); Blood Urea Nitrogen 7 mg/dL (9-23)
[2024-05-02 10:49] LABS: Glucose 594 mg/dL (74-106)
[2024-05-02] MEDS: HYDROcodone-ACET 10/325MG TAB PO ONE (10:51)
[2024-05-02] MEDS ORDERED: INSULIN DRIP 100 UNIT/100ML 100 ML IV SCH (11:15)
[2024-05-02] MEDS ORDERED: DEXTROSE (50%) 50ML SYRG IV PRN ×2 (11:15→22:30)
[2024-05-02] MEDS: SODIUM CHLORIDE 0.9% 1,000 ML IV ONE ×2 (11:15→11:18)
[2024-05-02] MEDS: INSULIN LANTUS (GLARGINE) 1 /0.01ml (100units/ml) SC ONE (11:41)
[2024-05-02] MEDS ORDERED: ACCU-CHEK COMFORT CURVE STRIP VI SCH (12:00)
[2024-05-02] MEDS ORDERED: ONDANSETRON HCL 4 MG/2 ML VIAL IV PRN (22:30)
[2024-05-02] MEDS ORDERED: TEMAZEPAM 15 MG CAP PO PRN (22:30)
[2024-05-02] MEDS ORDERED: chlordiazePOXIDE HCL 25 MG CAP PO PRN (22:30)
--- NOTE | 2024-05-02 22:33 | DVHHP2 ---
History of Present Illness Reason for Visit: Right foot infection History of Present Illness 49-year-old male presents for evaluation of right foot infection. The patient reports a one month history of noticing redness to his right foot. States noting discharge coming the bottom of his 2nd toe. Denies fever or chills. Denies trauma to the area. No other acute complaints reported. Past Medical History Hypertension diabetes mellitus Past Surgical History Denies Family History Noncontributory Smoke: No ALCOHOL: heavy Drugs: Marijuana Lives: Homeless Review of Systems Review of Systems Review of systems are currently negative addressed HPI. Allergies: Coded Allergies: Sulfamethoxazole w/Trimethoprim (Verified Allergy, Severe, 03/06/20) PRURITUS, THROAT SWELLING Medications Current Medications Medications Dose Ordered Sig/El Route Start Time Stop Time Status Last Admin Dose Admin Dextrose 50 ml PRN PRN IV 05/02/24 11:15 Exam Vital Signs Vital Signs Date Time Temp Pulse Resp B/P (MAP) Pulse Ox O2 Delivery O2 Flow Rate FiO2 05/02/24 19:24 98.3 90 18 139/94 (109) 97 98.3 05/02/24 10:55 Room Air Exam Gen: 49-year-old male in distress Skin: Warm, dry, normal color and texture, no rash. HEENT: Normocephalic atraumatic, mucous membranes moist and pink. Neck: Cervical and supraclavicular nodes normal without enlargement, trachea is midline, thyroid gland is normal without masses. Pulmonary: Clear to auscultation and percussion bilaterally. Cardiac: Regular rate and rhythm. No murmur Abdomen: Soft, nontender, nondistended, bowel sounds present all 4 quadrants, no guarding, no rigidity, no organomegaly. Extremities: No cyanosis, clubbing, right foot cellulitis Neuro: Cranial nerves II through XII grossly intact, normal affect and speech, no focal motor deficits. Labs/Xrays Labs Test 05/02/24 21:50 05/02/24 13:18 05/02/24 10:05 Range/Units Lactic Acid Level 1.1 0.4-2.0 mmol/L POC Glucose 426 *H 70-106 mg/dl White Blood Count 4.7 4.4-10.8 10^3/uL Red Blood Count 5.18 4.5-5.90 10^6/uL Hemoglobin 16.1 13.5-17.5 g/dL Hematocrit 46.3 41.0-53.0 % Mean Corpuscular Volume 89.2 80.0-100.0 fL Mean Corpuscular Hemoglobin 31.0 28.0-32.0 pg Mean Corpuscular Hemoglobin Concent 34.7 32.0-36.0 g/dL Red Cell Distribution Width 13.1 11.8-14.3 % Platelet Count 271 140-450 10^3/uL Mean Platelet Volume 7.5 6.9-10.8 fL Neutrophils (%) (Auto) 61.7 37.0-80.0 % Lymphocytes (%) (Auto) 29.8 10.0-50.0 % Monocytes (%) (Auto) 6.8 0.0-12.0 % Eosinophils (%) (Auto) 1.0 0.0-7.0 % Basophils (%) (Auto) 0.7 0.0-2.0 % Neutrophils # (Auto) 2.9 1.6-8.6 10 ^3/uL Lymphocytes # (Auto) 1.4 0.4-5.4 10 ^3/uL Monocytes # (Auto) 0.3 0-1.3 10 ^3/uL Eosinophils # (Auto) 0 0-0.8 10 ^3/uL Basophils # (Auto) 0 0-0.2 10 ^3/uL Nucleated Red Blood Cells 0.1 % Sodium Level 128 L 136-145 mmol/L Potassium Level 3.3 L 3.5-5.1 mmol/L Chloride Level 92 L 98-107 mmol/L Carbon Dioxide Level 25 20-31 mmol/L Anion Gap 11 5-15 Blood Urea Nitrogen 7 L 9-23 mg/dL Creatinine 0.86 0.700-1.30 mg/dL Glomerular Filtration Rate Calc 105 >90 mL/min BUN/Creatinine Ratio 8.1 L 10.0-20.0 Serum Glucose 594 *H 74-106 mg/dL Calcium Level 9.8 8.7-10.4 mg/dL Assessment/Plan Assessment/Plan Assessment Right foot cellulitis Uncontrolled diabetes mellitus Electrolyte imbalance Plan Admit the patient to Med surge to the hospitalist CT of the right foot pending Podiatry consultation Rocephin/clindamycin Continue treatment per orders. Plan discussed with: Patient My Orders Orders - BERNA WILDER Procedure Category Date Status Time Ct R Foot Wo Contrast CT 05/02/24 Logged 22:09 Drug Screen LAB 05/02/24 Transmitted 22:22 Blood Alcohol LAB 05/02/24 Transmitted 22:22 Blood Culture KAREL 05/02/24 Transmitted 22:22 Ceftriaxone Ivpb PHA 05/03/24 Transmitted Rocephin 09:00 Clindamycin Ivpb PHA 05/03/24 Transmitted Cleocin 06:00 Potassium Er Tablet PHA 05/03/24 Transmitted (Klor-Con Tablet) 10:00 Basic Metabolic Panel LAB 05/03/24 Verified 04:00 Glucose Blood PHA 05/03/24 Transmitted (Accu-Chek Comfort 00:00 Mild Sliding Scale PHA 05/03/24 Transmitted 00:00 Dextrose 50% Syringe PHA 05/02/24 Transmitted 22:30 Admit ADMIT 05/02/24 Transmitted 22:22 Hydrocodone-Acet PHA 05/02/24 Transmitted 5/325mg Tab (Searcy 22:30 Temazepam (Restoril) PHA 05/02/24 Transmitted 22:30 Ondansetron Hcl PHA 05/02/24 Transmitted (Zofran) 22:30 Complete Blood Count LAB 05/03/24 Verified 04:00 Condition: Stable PRINCESS 05/02/24 Transmitted 22:22 Acetaminophen Tablet PHA 05/02/24 Transmitted (Tylenol Tablet) 22:30 Bedrest With Bathroom PRINCESS 05/02/24 Transmitted Privileg 22:22 Consistent DIET 05/03/24 Transmitted Carb(Ccho)Diabetes Breakfast Date of Service: May 02, 2024 Billing Provider: BERNA WILDER Common Visit Codes: [id number] INP/OBS CARE (HIGH) BERNA WILDER May 02, 2024 22:33
--- NOTE | 2024-05-03 00:15 | DVH ---
INDICATION: Rule out osteomyelitis COMPARISON: CT ABD PELVIS WO CONTRAST on DOS: 07/23/21 TECHNIQUE: CT of the right foot was performed without contrast. Coronal and sagittal reformatted imag es were obtained from the source axial data. Soft tissue and bone window were reviewed All CT scans at this medical facility are performed using dose modulation techniques as appropriate t o a performed exam including the following: Automated exposure control was utilized; adjustment of th e MA and/or KV according to patient size; and use of iterative reconstruction technique. FINDINGS: Normal mineralization and alignment. Joint spaces preserved. No acute fracture. Mild degenerative hailey nge of the dorsum of the midfoot. There is a linear lucency in the distal tip of the fibula. There is a focal lucency of the distal tuft of the 2nd distal phalanx ( series 602, image 56) there is otherw ise no focal osteopenia or cortical destruction to suggest osteomyelitis. There is diffuse subcutaneo us edema within the right foot. There is no soft tissue gas or well-formed fluid collection. The mus eileen bundles of the right foot are intact. IMPRESSION: 1. Focal lucency in the distal tuft of the 2nd distal phalanx which could reflect osteomyelitis. Marc elate if there is any soft tissue wound in this digit. 2. Linear lucency in the distal tip of the fibula which could be sequelae of prior trauma of indeterm inate chronicity. 3. Diffuse subcutaneous edema within the right foot.
[2024-05-03] MEDS: ACCU-CHEK COMFORT CURVE STRIP VI SCH (02:01)
[2024-05-03] MEDS: InsuLIN REG 1unit/0.01ml Soln (100units/ml) SC SCH (02:02)
[2024-05-03 05:50] LABS: Basophils # (auto) 0 10 ^3/uL (0-0.2); Basophils % (auto) 0.3 % (0.0-2.0); Eosinophils # (auto) 0.1 10 ^3/uL (0-0.8); Eosinophils % (auto) 0.8 % (0.0-7.0); Hematocrit 46.9 % (41.0-53.0); Hemoglobin 16.2 g/dL (13.5-17.5); Lymphocytes # (auto) 1.4 10 ^3/uL (0.4-5.4); Mean Corpuscular Hemoglobin 30.9 pg (28.0-32.0); Mean Corpuscular Hgb Conc. 34.5 g/dL (32.0-36.0); Mean Corpuscular Volume 89.7 fL (80.0-100.0); Monocytes # (auto) 0.5 10 ^3/uL (0-1.3); Monocytes % (auto) 7.2 % (0.0-12.0); Neutrophils # (auto) 5.2 10 ^3/uL (1.6-8.6); Neutrophils % (auto) 71.7 % (37.0-80.0); Platelet Count (auto) 271 10^3/uL (140-450); Red Blood Cells 5.23 10^6/uL (4.5-5.90); Red Cell Distribution Width 13.3 % (11.8-14.3); White Blood Cell 7.2 10^3/uL (4.4-10.8)
[2024-05-03 06:05] LABS: Calcium 9.8 mg/dL (8.7-10.4); Chloride 95 mmol/L (98-107); Sodium 131 mmol/L (136-145)
[2024-05-03 06:06] LABS: Anion Gap 11 (5-15); Carbon Dioxide 25 mmol/L (20-31)
[2024-05-03 06:11] LABS: BUN/Creatinine Ratio 10.6 (10.0-20.0); Blood Urea Nitrogen 9 mg/dL (9-23)
[2024-05-03] MEDS: CLINDAMYCIN 600MG IV 50 ML IV SCH (06:11)
[2024-05-03 06:16] VITALS: PULSE 83; RESP 18; O2SAT 96
[2024-05-03 06:17] LABS: Glucose 336 mg/dL (74-106)
[2024-05-03] MEDS: cefTRIAXone 1GM/50ML D5W 50 ML IV SCH (09:00)
[2024-05-03] MEDS: POTASSIUM CHL 20 Meq TABLET PO SCH (10:00)
[2024-05-03] MEDS ORDERED: INSULIN LANTUS (GLARGINE) 1 /0.01ml (100units/ml) SC SCH (10:00)
[2024-05-03 10:16] VITALS: PULSE 87; RESP 16; O2SAT 98
[2024-05-03 22:00] VITALS: BP 136/91; PULSE 78; TEMP 98.6; O2SAT 98
[2024-05-04] VITALS (10 sets, daily range): BP systolic 110–132; BP diastolic 69–86; PULSE 72–99; RESP 16–20; TEMP 97.4–98.8; O2SAT 94–99
--- NOTE | 2024-05-04 12:15 | DVHINCON2 ---
Date Seen: May 04, 2024 Reason for Consultation Right foot wound History of Present Illness 49 year old male BRANDON presents to the ED with chief complaint of right foot pain. Patient reports that he has been experiencing worsening right foot pain with associated redness, swelling, and discharge noted to the toes for the past 2 months. EMS relays patient is homeless and has history of DM, however, he is not taking any medication. Patient denies any numbness, weakness, fever, or chills. Past Medical History See H&P Past Surgical History See H&P Family History: Diabetes mellitus G8 MOTHER G8 FATHER Allergies: Coded Allergies: Sulfamethoxazole w/Trimethoprim (Verified Allergy, Severe, 03/06/20) PRURITUS, THROAT SWELLING Vital Signs Vital Signs Date Time Temp Pulse Resp B/P (MAP) Pulse Ox O2 Delivery O2 Flow Rate FiO2 05/04/24 09:00 97.9 97 17 127/84 (98) 94 97.9 05/04/24 02:20 Room Air* 0 21 Physical Exam DERMATOLOGIC EXAM: - Skin is dry and cool to the touch dry bilaterally. - Nails 1-5 of the bilateral foot are thickened, discolored, dystrophic, and tender to palpate with subungual debris - Hair loss noted to bilateral feet Wound #1: Location: Right distal 2nd toe Measurements: Length 1 cm x width 1 cm x depth 0.5 cm. Wound margins: Hyperkeratotic. Wound base: Full thickness. General Appearance: Healthy and bleeding. Probes to Bone: Yes Purulent drainage: No Serous drainage: No Erythema: Present to the level of the toe VASCULAR EXAM: - DP and PT pulses are palpable bilaterally. - FUR DESIGNER is brisk to all digits. - Feet are cool to touch compared to lower legs bilaterally. NEUROLOGIC EXAM: - Normal light touch sensation to the superficial peroneal, deep peroneal, sural, saphenous, and tibial nerve branches. - Protective sensation is diminished as tested with a 5.07 10g [place] bilaterally. MUSCULOSKELETAL EXAM: - No gross deformities - Muscle strength is 5/5 and active motion is pain-free and symmetrical bilaterally - No pain or crepitation with passive range of motion bilaterally to all major pedal joints Labs/Diagnostic Data Labs Test 05/04/24 11:52 05/03/24 05:10 05/02/24 21:50 Range/Units POC Glucose 306 H 70-106 mg/dl White Blood Count 7.2 # 4.4-10.8 10^3/uL Red Blood Count 5.23 4.5-5.90 10^6/uL Hemoglobin 16.2 13.5-17.5 g/dL Hematocrit 46.9 41.0-53.0 % Mean Corpuscular Volume 89.7 80.0-100.0 fL Mean Corpuscular Hemoglobin 30.9 28.0-32.0 pg Mean Corpuscular Hemoglobin Concent 34.5 32.0-36.0 g/dL Red Cell Distribution Width 13.3 11.8-14.3 % Platelet Count 271 140-450 10^3/uL Mean Platelet Volume 7.4 6.9-10.8 fL Neutrophils (%) (Auto) 71.7 37.0-80.0 % Lymphocytes (%) (Auto) 20.0 10.0-50.0 % Monocytes (%) (Auto) 7.2 0.0-12.0 % Eosinophils (%) (Auto) 0.8 0.0-7.0 % Basophils (%) (Auto) 0.3 0.0-2.0 % Neutrophils # (Auto) 5.2 1.6-8.6 10 ^3/uL Lymphocytes # (Auto) 1.4 0.4-5.4 10 ^3/uL Monocytes # (Auto) 0.5 0-1.3 10 ^3/uL Eosinophils # (Auto) 0.1 0-0.8 10 ^3/uL Basophils # (Auto) 0 0-0.2 10 ^3/uL Nucleated Red Blood Cells 0.0 % Sodium Level 131 L 136-145 mmol/L Potassium Level 3.0 L 3.5-5.1 mmol/L Chloride Level 95 L 98-107 mmol/L Carbon Dioxide Level 25 20-31 mmol/L Anion Gap 11 5-15 Blood Urea Nitrogen 9 9-23 mg/dL Creatinine 0.85 0.700-1.30 mg/dL Glomerular Filtration Rate Calc 106 >90 mL/min BUN/Creatinine Ratio 10.6 10.0-20.0 Serum Glucose 336 #H 74-106 mg/dL Calcium Level 9.8 8.7-10.4 mg/dL Lactic Acid Level 1.1 0.4-2.0 mmol/L Plasma/Serum Blood Alcohol 3.8 <10 mg/dL Microbiology Date/Time Source Procedure Growth Status 05/02/24 21:50 Blood Blood Culture - Preliminary NO GROWTH AFTER 24 HOURS OF INCUBATION. Resulted Problems(with codes): (1) Toxic encephalopathy (2) Alcohol intoxication (3) Altered mental status (4) Head trauma (5) Subarachnoid bleed (6) Bilateral subdural hematomas (7) Periorbital hematoma of right eye (8) Acute alcohol intoxication (9) Hypokalemia (10) Stone, kidney (11) Pyelonephritis (12) Folliculitis (13) Dehydration (14) Hyperglycemia (15) Eloped from emergency department (16) DKA (diabetic ketoacidosis) (17) Cellulitis (18) Uncontrolled diabetes mellitus Plan/Recommendation ASSESSMENT: Patient is a 49-year-old male seen on the floor for worsening right 2nd toe wound PLAN: - The patients chart was reviewed, clinical findings were discussed with the patient, the etiologies of the conditions were discussed in detail, and a treatment plan was agreed to at this time, with both oral and written instructions provided. - reviewed the CT of the right foot - discussed with the patient that I recommend we get an MRI to review the extent 0 bone infection whether we have taken entire toe or just the distal phalanx - discussed the option of partial amputation versus debridement - once you of the MRI we will be able to better decide what to move forward with - plan will be to take him to the OR on Tuesday either for partial amputation or debridement - patient will be NPO Tuesday night All questions were answered and concerns addressed to the patient's satisfaction. The patient was given the phone number to the clinic and was told how to make contact with the clinic should any concerns or questions arise. Patient understands that if any questions or concerns arise prior to the next appointment, we should be contacted immediately. FOLLOW-UP: We will continue to follow while inpatient Plan discussed with: Patient Date of Service: May 04, 2024 Billing Provider: EVIE LUCAS DPM Common Visit Codes: [id number] INP/OBS CARE (MOD) EVIE LUCAS DPM May 04, 2024 12:15
[2024-05-04] MEDS: HYDROcodone-ACET 5/325MG TAB PO PRN (12:27)
--- NOTE | 2024-05-04 14:04 | DVH ---
EXAMINATION: MRI MRI R FOOT WO CONTRAST TECHNIQUE: MRI of the right foot was performed. Multisequence multiplanar MRI images were obtained w ithout intravenous contrast. HISTORY: R/O OSTEOMYELITIS COMPARISON: CT CT R FOOT WO CONTRAST on DOS: 05/02/24 FINDINGS/IMPRESSION: Diffuse subcutaneous soft-tissue edema and swelling. This is most prominent at the distal 2nd digit. This may represent cellulitis. Diffuse increased STIR and decreased T1 signal associated with the distal phalanx of the 2nd digit. T his is suspicious for osteomyelitis.
--- NOTE | 2024-05-04 15:38 | DVHPN2 ---
Reviewed: Care Plan, H&P, Labs, Medications, Previous Orders, Radiology Changes from previous H/P or p: No Changes General: Per HPI Objective Vitals Vital Signs Date Time Temp Pulse Resp B/P (MAP) Pulse Ox O2 Delivery O2 Flow Rate FiO2 05/04/24 12:52 97.4 76 16 125/86 (99) 94 97.4 05/04/24 02:20 Room Air* 0 21 Intake/Output Intake and Output 05/04/24 07:00 Intake Total 350 ml Output Total 0 ml Balance 350 ml Intake Oral 200 ml IV Total 150 ml Output Urine Total 0 ml General Appearance: Alert, Oriented X3, Cooperative Cardiovascular: Regular rate, Normal S1, Normal S2 Abdomen: Normal bowel sounds Medications Current Medications Medications Dose Ordered Sig/El Route Start Time Stop Time Status Last Admin Dose Admin Ceftriaxone Sodium 50 ml @ 100 mls/hr DAILY@09 IV 05/03/24 09:00 05/04/24 08:37 100 MLS/HR Clindamycin Phosphate 50 ml @ 50 mls/hr Q8HR IV 05/03/24 06:00 05/04/24 14:39 50 MLS/HR Potassium Chloride 40 meq DAILY PO 05/03/24 10:00 05/04/24 09:57 40 MEQ Diagnostic Test (Pha) 1 strip IQ4HR 05/03/24 00:00 05/04/24 12:19 1 STRIP Insulin Human Regular IQ4HR SC 05/03/24 00:00 05/04/24 12:31 8 UNITS Dextrose 50 ml UD PRN IV 05/02/24 22:30 Acetaminophen/ Hydrocodone Bitart 1 tab Q4HP PRN PO 05/02/24 22:30 05/04/24 12:27 1 TAB Temazepam 15 mg QHSP PRN PO 05/02/24 22:30 Ondansetron HCl 4 mg Q4HP PRN IV 05/02/24 22:30 Acetaminophen 650 mg Q6HP PRN PO 05/02/24 22:30 Chlordiazepoxide HCl 25 mg Q6HPRN PRN PO 05/02/24 22:30 Laboratory Results Laboratory Tests 05/03/24 05:10 Microbiology Microbiology Date/Time Source Procedure Growth Status 05/02/24 21:50 Blood Blood Culture - Preliminary NO GROWTH AFTER 24 HOURS OF INCUBATION. Resulted Labs and/or images reviewed: Labs reviewed by me, Image(s) reviewed by me Assessment/Plan Assessment/Plan 49-year-old male presents for evaluation of right foot infection. The patient reports a one month history of noticing redness to his right foot. States noting discharge coming the bottom of his 2nd toe. Denies fever or chills. Denies trauma to the area. No other acute complaints reported. Right foot cellulitis Uncontrolled diabetes mellitus Electrolyte imbalance MRI shows cellulitis. No osteo Podiatry to evaluate continue with clindamycin and ceftriaxone Plan discussed with: Patient Date of Service: May 04, 2024 Billing Provider: ANSON CONWAY DO Common Visit Codes: [id number] INP/OBS CARE(HIGH) ANSON CONWAY DO May 04, 2024 15:38
[2024-05-05] VITALS (7 sets, daily range): BP systolic 114–136; BP diastolic 68–87; PULSE 71–78; RESP 16–20; TEMP 97.4–98.5; O2SAT 95–97
--- NOTE | 2024-05-05 15:57 | DVHPN2 ---
Reviewed: Care Plan, H&P, Labs, Medications, Previous Orders, Radiology Changes from previous H/P or p: No Changes General: Per HPI Objective Vitals Vital Signs Date Time Temp Pulse Resp B/P (MAP) Pulse Ox O2 Delivery O2 Flow Rate FiO2 05/05/24 13:14 97.6 74 20 125/83 (97) 96 97.6 05/05/24 08:00 Room Air* 0 21 Intake/Output Intake and Output 05/05/24 07:00 Intake Total 3257 ml Output Total 1475 ml Balance 1782 ml Intake Oral 3107 ml IV Total 150 ml Output Urine Total 1475 ml # Voids 3 General Appearance: Alert, Oriented X3, Cooperative Cardiovascular: Regular rate, Normal S1, Normal S2 Abdomen: Normal bowel sounds Medications Current Medications Medications Dose Ordered Sig/El Route Start Time Stop Time Status Last Admin Dose Admin Ceftriaxone Sodium 50 ml @ 100 mls/hr DAILY@09 IV 05/03/24 09:00 05/05/24 08:41 100 MLS/HR Clindamycin Phosphate 50 ml @ 50 mls/hr Q8HR IV 05/03/24 06:00 05/05/24 14:21 50 MLS/HR Potassium Chloride 40 meq DAILY PO 05/03/24 10:00 05/05/24 10:11 40 MEQ Diagnostic Test (Pha) 1 strip IQ4HR 05/03/24 00:00 05/05/24 12:30 1 STRIP Insulin Human Regular IQ4HR SC 05/03/24 00:00 05/05/24 12:34 6 UNITS Dextrose 50 ml UD PRN IV 05/02/24 22:30 Acetaminophen/ Hydrocodone Bitart 1 tab Q4HP PRN PO 05/02/24 22:30 05/04/24 12:27 1 TAB Temazepam 15 mg QHSP PRN PO 05/02/24 22:30 Ondansetron HCl 4 mg Q4HP PRN IV 05/02/24 22:30 Acetaminophen 650 mg Q6HP PRN PO 05/02/24 22:30 Chlordiazepoxide HCl 25 mg Q6HPRN PRN PO 05/02/24 22:30 Laboratory Results Laboratory Tests 05/03/24 05:10 Microbiology Microbiology Date/Time Source Procedure Growth Status 05/02/24 21:50 Blood Blood Culture - Preliminary NO GROWTH AFTER 48 HOURS OF INCUBATION. Resulted Assessment/Plan Assessment/Plan 49-year-old male presents for evaluation of right foot infection. The patient reports a one month history of noticing redness to his right foot. States noting discharge coming the bottom of his 2nd toe. Denies fever or chills. Denies trauma to the area. No other acute complaints reported. Right foot cellulitis Uncontrolled diabetes mellitus Electrolyte imbalance 05/04/2024 MRI shows cellulitis. No osteo Podiatry to evaluate continue with clindamycin and ceftriaxone 05/05/2024: pt to consider amputation. wants to discuss with podiatry Plan discussed with: Patient Date of Service: May 05, 2024 Billing Provider: ANSON CONWAY DO Common Visit Codes: [id number] INP/OBS CARE(HIGH) ANSON CONWAY DO May 05, 2024 15:57
[2024-05-06] VITALS (8 sets, daily range): BP systolic 121–142; BP diastolic 77–90; PULSE 64–76; RESP 16–21; TEMP 97.6–99.1; O2SAT 94–98
--- NOTE | 2024-05-06 16:11 | DVHPN2 ---
Reviewed: Care Plan, H&P, Labs, Medications, Previous Orders, Radiology Changes from previous H/P or p: No Changes General: Per HPI Objective Vitals Vital Signs Date Time Temp Pulse Resp B/P (MAP) Pulse Ox O2 Delivery O2 Flow Rate FiO2 05/06/24 13:33 98.2 76 18 126/81 (96) 97 98.2 05/06/24 08:00 Room Air* 0 21 Intake/Output Intake and Output 05/06/24 07:00 Intake Total 4500 ml Output Total 2500 ml Balance 2000 ml Intake Oral 4400 ml IV Total 100 ml Output Urine Total 2500 ml General Appearance: Alert, Oriented X3, Cooperative Cardiovascular: Regular rate, Normal S1, Normal S2 Abdomen: Normal bowel sounds Medications Current Medications Medications Dose Ordered Sig/El Route Start Time Stop Time Status Last Admin Dose Admin Ceftriaxone Sodium 50 ml @ 100 mls/hr DAILY@09 IV 05/03/24 09:00 05/06/24 08:27 100 MLS/HR Clindamycin Phosphate 50 ml @ 50 mls/hr Q8HR IV 05/03/24 06:00 05/06/24 13:45 50 MLS/HR Potassium Chloride 40 meq DAILY PO 05/03/24 10:00 05/06/24 10:35 40 MEQ Diagnostic Test (Pha) 1 strip IQ4HR 05/03/24 00:00 05/06/24 12:02 1 STRIP Insulin Human Regular IQ4HR SC 05/03/24 00:00 05/06/24 12:31 6 UNITS Dextrose 50 ml UD PRN IV 05/02/24 22:30 Acetaminophen/ Hydrocodone Bitart 1 tab Q4HP PRN PO 05/02/24 22:30 05/05/24 17:20 1 TAB Temazepam 15 mg QHSP PRN PO 05/02/24 22:30 Ondansetron HCl 4 mg Q4HP PRN IV 05/02/24 22:30 Acetaminophen 650 mg Q6HP PRN PO 05/02/24 22:30 Chlordiazepoxide HCl 25 mg Q6HPRN PRN PO 05/02/24 22:30 Laboratory Results Laboratory Tests 05/03/24 05:10 Microbiology Microbiology Date/Time Source Procedure Growth Status 05/02/24 21:50 Blood Blood Culture - Preliminary NO GROWTH AFTER 72 HOURS OF INCUBATION. Resulted Assessment/Plan Assessment/Plan 49-year-old male presents for evaluation of right foot infection. The patient reports a one month history of noticing redness to his right foot. States noting discharge coming the bottom of his 2nd toe. Denies fever or chills. Denies trauma to the area. No other acute complaints reported. Right foot cellulitis Uncontrolled diabetes mellitus Electrolyte imbalance 05/04/2024 MRI shows cellulitis. No osteo Podiatry to evaluate continue with clindamycin and ceftriaxone 05/05/2024: pt to consider amputation. wants to discuss with podiatry 05/06/2024: MRI shows osteomyelitis. Pt to discuss with podiatry regarding amputation Plan discussed with: Patient My Orders Orders - ANSON CONWAY DO Procedure Category Date Status Time * Infectious Mo- Dr. PAZ 05/06/24 Transmitted bIis Jo 16:08 Date of Service: May 06, 2024 Billing Provider: ANSON CONWAY DO Common Visit Codes: [id number] INP/OBS CARE(HIGH) ANSON CONWAY DO May 06, 2024 16:11
[2024-05-06] MEDS: PIPERACILLIN-TAZOB 3.375GM 100 ML IV SCH (16:46)
[2024-05-07] VITALS (8 sets, daily range): BP systolic 104–136; BP diastolic 63–88; PULSE 59–73; RESP 15–20; TEMP 98–98.8; O2SAT 93–99
[2024-05-07] MEDS: ACCU-CHEK COMFORT CURVE STRIP VI ONE (08:45)
[2024-05-07] MEDS: METOCLOPRAMIDE HCL 5MG/ml INJ 2ml VIAL IV ONE (08:45)
[2024-05-07] MEDS ORDERED: MORPHINE SULFATE INJ 2 MG/ml SYRG IV PRN (08:45)
[2024-05-07] MEDS: KETOROLAC TROMETH 30 MG/ML 1ML VIAL IV ONE (08:45)
[2024-05-07] MEDS ORDERED: HYDROmorphone HCL 2 MG/ML VL/or syr IV PRN ×2 (08:45)
--- NOTE | 2024-05-07 11:08 | DVHPN2 ---
Subjective The patient is seen and examined at bedside. The patient feel a bit better today. Waiting for director of sustainable design to see the patient. Reviewed: Care Plan, H&P, Labs, Medications, Previous Orders, Radiology Changes from previous H/P or p: No Changes General: Per HPI Objective Vitals Vital Signs Date Time Temp Pulse Resp B/P (MAP) Pulse Ox O2 Delivery O2 Flow Rate FiO2 05/07/24 05:00 98.4 64 18 122/83 (96) 94 98.4 05/06/24 20:00 Room Air* 0 21 Intake/Output Intake and Output 05/07/24 07:00 Intake Total 4577 ml Output Total 2800 ml Balance 1777 ml Intake Oral 4527 ml IV Total 50 ml Output Urine Total 2800 ml # Voids 1 General Appearance: Alert, Oriented X3, Cooperative Cardiovascular: Regular rate, Normal S1, Normal S2 Abdomen: Normal bowel sounds Medications Current Medications Medications Dose Ordered Sig/El Route Start Time Stop Time Status Last Admin Dose Admin Clindamycin Phosphate 50 ml @ 50 mls/hr Q8HR IV 05/03/24 06:00 05/07/24 04:57 50 MLS/HR Potassium Chloride 40 meq DAILY PO 05/03/24 10:00 05/07/24 09:15 40 MEQ Diagnostic Test (Pha) 1 strip IQ4HR 05/03/24 00:00 05/07/24 08:00 1 STRIP Insulin Human Regular IQ4HR SC 05/03/24 00:00 05/07/24 08:59 3 UNITS Dextrose 50 ml UD PRN IV 05/02/24 22:30 Acetaminophen/ Hydrocodone Bitart 1 tab Q4HP PRN PO 05/02/24 22:30 05/07/24 09:15 1 TAB Temazepam 15 mg QHSP PRN PO 05/02/24 22:30 Ondansetron HCl 4 mg Q4HP PRN IV 05/02/24 22:30 Acetaminophen 650 mg Q6HP PRN PO 05/02/24 22:30 Chlordiazepoxide HCl 25 mg Q6HPRN PRN PO 05/02/24 22:30 Piperacillin Sod/ Tazobactam Sod 100 ml @ 25 mls/hr Q6H IV 05/06/24 17:00 05/07/24 05:00 25 MLS/HR Laboratory Results Laboratory Tests 05/03/24 05:10 Microbiology Microbiology Date/Time Source Procedure Growth Status 05/02/24 21:50 Blood Blood Culture - Preliminary NO GROWTH AFTER 72 HOURS OF INCUBATION. Resulted Labs and/or images reviewed: Labs reviewed by me Assessment/Plan Assessment/Plan Right foot cellulitis Right 2nd toe osteomyelitis Uncontrolled diabetes mellitus Electrolyte imbalance Continuing current management. Continuing with IV antibiotic clindamycin and ceftriaxone. The MRI of the foot showed osteomyelitis Waiting for director of sustainable design to evaluate for possible amputation or wound debridement. Continuing IV pain medication Discussed with patient regarding to plan of care Replace electrolytes as needed Plan discussed with: Patient Date of Service: May 07, 2024 Billing Provider: BRAD JUDGE MD Common Visit Codes: [id number] INP/OBS CARE(HIGH) BRAD JUDGE MD May 07, 2024 11:08
--- NOTE | 2024-05-07 13:18 | DVHPN2 ---
Subjective 49 year old male BRANDON presents to the ED with chief complaint of right foot pain. Patient reports that he has been experiencing worsening right foot pain with associated redness, swelling, and discharge noted to the toes for the past 2 months. EMS relays patient is homeless and has history of DM, however, he is not taking any medication. Patient denies any numbness, weakness, fever, or chills. Reviewed: Care Plan, H&P, Labs, Medications, Previous Orders, Radiology Changes from previous H/P or p: No Changes General: Per HPI Objective Vitals Vital Signs Date Time Temp Pulse Resp B/P (MAP) Pulse Ox O2 Delivery O2 Flow Rate FiO2 05/07/24 08:00 68 16 97 Room Air* 0 21 05/07/24 05:00 98.4 122/83 (96) 98.4 Intake/Output Intake and Output 05/07/24 07:00 Intake Total 4577 ml Output Total 2800 ml Balance 1777 ml Intake Oral 4527 ml IV Total 50 ml Output Urine Total 2800 ml # Voids 1 Exam DERMATOLOGIC EXAM: - Skin is dry and cool to the touch dry bilaterally. - Nails 1-5 of the bilateral foot are thickened, discolored, dystrophic, and tender to palpate with subungual debris - Hair loss noted to bilateral feet Wound #1: Location: Right distal 2nd toe Measurements: Length 1 cm x width 1 cm x depth 0.5 cm. Wound margins: Hyperkeratotic. Wound base: Full thickness. General Appearance: Healthy and bleeding. Probes to Bone: Yes Purulent drainage: No Serous drainage: No Erythema: Present to the level of the toe VASCULAR EXAM: - DP and PT pulses are palpable bilaterally. - LOSS CONTROL TECHNICIAN is brisk to all digits. - Feet are cool to touch compared to lower legs bilaterally. NEUROLOGIC EXAM: - Normal light touch sensation to the superficial peroneal, deep peroneal, sural, saphenous, and tibial nerve branches. - Protective sensation is diminished as tested with a 5.07 10g [place]-Tim bilaterally. MUSCULOSKELETAL EXAM: - No gross deformities - Muscle strength is 5/5 and active motion is pain-free and symmetrical bilaterally - No pain or crepitation with passive range of motion bilaterally to all major pedal joints General Appearance: Alert, Oriented X3, Cooperative Cardiovascular: Regular rate, Normal S1, Normal S2 Abdomen: Normal bowel sounds Medications Current Medications Medications Dose Ordered Sig/El Route Start Time Stop Time Status Last Admin Dose Admin Clindamycin Phosphate 50 ml @ 50 mls/hr Q8HR IV 05/03/24 06:00 05/07/24 04:57 50 MLS/HR Potassium Chloride 40 meq DAILY PO 05/03/24 10:00 05/07/24 09:15 40 MEQ Diagnostic Test (Pha) 1 strip IQ4HR 05/03/24 00:00 05/07/24 12:00 1 STRIP Insulin Human Regular IQ4HR SC 05/03/24 00:00 05/07/24 11:37 6 UNITS Dextrose 50 ml UD PRN IV 05/02/24 22:30 Acetaminophen/ Hydrocodone Bitart 1 tab Q4HP PRN PO 05/02/24 22:30 05/07/24 09:15 1 TAB Temazepam 15 mg QHSP PRN PO 05/02/24 22:30 Ondansetron HCl 4 mg Q4HP PRN IV 05/02/24 22:30 Acetaminophen 650 mg Q6HP PRN PO 05/02/24 22:30 Chlordiazepoxide HCl 25 mg Q6HPRN PRN PO 05/02/24 22:30 Piperacillin Sod/ Tazobactam Sod 100 ml @ 25 mls/hr Q6H IV 05/06/24 17:00 05/07/24 11:32 25 MLS/HR Laboratory Results Laboratory Tests 05/03/24 05:10 Microbiology Microbiology Date/Time Source Procedure Growth Status 05/02/24 21:50 Blood Blood Culture - Preliminary NO GROWTH AFTER 72 HOURS OF INCUBATION. Resulted Assessment/Plan Assessment/Plan ASSESSMENT: Patient is a 49-year-old male seen on the floor for worsening right 2nd toe wound PLAN: - The patients chart was reviewed, clinical findings were discussed with the patient, the etiologies of the conditions were discussed in detail, and a treatment plan was agreed to at this time, with both oral and written instructions provided. - reviewed reviewed MRI which showed osteomyelitis at the distal tip of the 2nd toe - discussed the option of partial amputation versus debridement, we will move forward with surgical partial amputation - plan will be to take him to the OR on Tuesday for partial amputation - patient will be NPO at midnight All questions were answered and concerns addressed to the patient's satisfaction. The patient was given the phone number to the clinic and was told how to make contact with the clinic should any concerns or questions arise. Patient understands that if any questions or concerns arise prior to the next appointment, we should be contacted immediately. FOLLOW-UP: We will continue to follow while inpatient Plan discussed with: Patient Problem List: (1) Cellulitis (2) Uncontrolled diabetes mellitus (3) Folliculitis (4) Dehydration (5) Hypokalemia (6) Alcohol intoxication (7) Toxic encephalopathy (8) Hyperglycemia (9) Stone, kidney (10) Pyelonephritis (11) Altered mental status (12) Acute alcohol intoxication (13) Head trauma (14) DKA (diabetic ketoacidosis) (15) Subarachnoid bleed (16) Bilateral subdural hematomas (17) Periorbital hematoma of right eye (18) Eloped from emergency department Date of Service: May 07, 2024 Billing Provider: EVIE LUCAS DPM Common Visit Codes: [id number] INP/OBS CARE(MOD) EVIE LUCAS DPM May 07, 2024 13:18
[2024-05-08] VITALS (8 sets, daily range): BP systolic 107–123; BP diastolic 68–84; PULSE 59–78; RESP 12–19; TEMP 97.6–98.3; O2SAT 96–99
--- NOTE | 2024-05-08 11:11 | DVHPN2 ---
Subjective The patient is seen and examined at bedside. The patient feel a bit better today. Waiting for surgery today Reviewed: Care Plan, H&P, Labs, Medications, Previous Orders, Radiology Changes from previous H/P or p: No Changes General: Per HPI Objective Vitals Vital Signs Date Time Temp Pulse Resp B/P (MAP) Pulse Ox O2 Delivery O2 Flow Rate FiO2 05/08/24 09:00 97.7 59 17 115/81 (92) 98 97.7 05/08/24 08:00 Room Air* 0 21 Intake/Output Intake and Output 05/08/24 07:00 Intake Total 2500 ml Output Total 1000 ml Balance 1500 ml Intake Oral 2350 ml IV Total 150 ml Output Urine Total 1000 ml # Voids 5 General Appearance: Alert, Oriented X3, Cooperative Cardiovascular: Regular rate, Normal S1, Normal S2 Abdomen: Normal bowel sounds Medications Current Medications Medications Dose Ordered Sig/El Route Start Time Stop Time Status Last Admin Dose Admin Clindamycin Phosphate 50 ml @ 50 mls/hr Q8HR IV 05/03/24 06:00 05/08/24 05:00 50 MLS/HR Potassium Chloride 40 meq DAILY PO 05/03/24 10:00 05/07/24 09:15 40 MEQ Diagnostic Test (Pha) 1 strip IQ4HR 05/03/24 00:00 05/08/24 08:57 1 STRIP Insulin Human Regular IQ4HR SC 05/03/24 00:00 05/08/24 04:25 6 UNITS Dextrose 50 ml UD PRN IV 05/02/24 22:30 Acetaminophen/ Hydrocodone Bitart 1 tab Q4HP PRN PO 05/02/24 22:30 05/07/24 23:33 1 TAB Temazepam 15 mg QHSP PRN PO 05/02/24 22:30 Ondansetron HCl 4 mg Q4HP PRN IV 05/02/24 22:30 Acetaminophen 650 mg Q6HP PRN PO 05/02/24 22:30 Chlordiazepoxide HCl 25 mg Q6HPRN PRN PO 05/02/24 22:30 Piperacillin Sod/ Tazobactam Sod 100 ml @ 25 mls/hr Q6H IV 05/06/24 17:00 05/08/24 06:24 25 MLS/HR Laboratory Results Laboratory Tests 05/03/24 05:10 Microbiology Microbiology Date/Time Source Procedure Growth Status 05/02/24 21:50 Blood Blood Culture - Final NO GROWTH AFTER 5 DAYS OF INCUBATION. Complete Labs and/or images reviewed: Labs reviewed by me Assessment/Plan Assessment/Plan Right foot cellulitis Right 2nd toe osteomyelitis Uncontrolled diabetes mellitus Electrolyte imbalance Continuing current management. Continuing with IV antibiotic clindamycin and ceftriaxone. The MRI of the foot showed osteomyelitis Waiting for die cutting machine operator for partial amputation of the 2nd toe today. Continuing IV pain medication Discussed with patient regarding to plan of care Replace electrolytes as needed Plan discussed with: Patient Date of Service: May 08, 2024 Billing Provider: BRAD JUDGE MD Common Visit Codes: [id number] INP/OBS CARE(HIGH) BRAD JUDGE MD May 08, 2024 11:11
[2024-05-08] MEDS: BUPIVACAINE 0.5% P/F INJ 10 ML VIAL ONE (12:32)
[2024-05-08] MEDS ORDERED: MIDAZOLAM HCL 2MG/2ML 2ml VIAL (1mg/ml) ONE (12:33)
[2024-05-08] MEDS ORDERED: fentaNYL CITRATE 100 MCG/2 ML VL ONE (12:33)
[2024-05-08] MEDS ORDERED: PROPOFOL 10 MG/ML 20 ML IV ONE (12:39)
--- NOTE | 2024-05-08 12:54 | DVHPN2 ---
Subjective 49 year old male BRANDON presents to the ED with chief complaint of right foot pain. Patient reports that he has been experiencing worsening right foot pain with associated redness, swelling, and discharge noted to the toes for the past 2 months. EMS relays patient is homeless and has history of DM, however, he is not taking any medication. Patient denies any numbness, weakness, fever, or chills. Reviewed: Care Plan, H&P, Labs, Medications, Previous Orders, Radiology Changes from previous H/P or p: No Changes General: Per HPI Objective Vitals Vital Signs Date Time Temp Pulse Resp B/P (MAP) Pulse Ox O2 Delivery O2 Flow Rate FiO2 05/08/24 09:00 97.7 59 17 115/81 (92) 98 97.7 05/08/24 08:00 Room Air* 0 21 Intake/Output Intake and Output 05/08/24 07:00 Intake Total 2500 ml Output Total 1000 ml Balance 1500 ml Intake Oral 2350 ml IV Total 150 ml Output Urine Total 1000 ml # Voids 5 Exam DERMATOLOGIC EXAM: - Skin is dry and cool to the touch dry bilaterally. - Nails 1-5 of the bilateral foot are thickened, discolored, dystrophic, and tender to palpate with subungual debris - Hair loss noted to bilateral feet Wound #1: Location: Right distal 2nd toe Measurements: Length 1 cm x width 1 cm x depth 0.5 cm. Wound margins: Hyperkeratotic. Wound base: Full thickness. General Appearance: Healthy and bleeding. Probes to Bone: Yes Purulent drainage: No Serous drainage: No Erythema: Present to the level of the toe VASCULAR EXAM: - DP and PT pulses are palpable bilaterally. - AIR SAMPLING AND MONITORING is brisk to all digits. - Feet are cool to touch compared to lower legs bilaterally. NEUROLOGIC EXAM: - Normal light touch sensation to the superficial peroneal, deep peroneal, sural, saphenous, and tibial nerve branches. - Protective sensation is diminished as tested with a 5.07 10g [place]-Tim bilaterally. MUSCULOSKELETAL EXAM: - No gross deformities - Muscle strength is 5/5 and active motion is pain-free and symmetrical bilaterally - No pain or crepitation with passive range of motion bilaterally to all major pedal joints General Appearance: Alert, Oriented X3, Cooperative Cardiovascular: Regular rate, Normal S1, Normal S2 Abdomen: Normal bowel sounds Medications Current Medications Medications Dose Ordered Sig/El Route Start Time Stop Time Status Last Admin Dose Admin Clindamycin Phosphate 50 ml @ 50 mls/hr Q8HR IV 05/03/24 06:00 05/08/24 05:00 50 MLS/HR Potassium Chloride 40 meq DAILY PO 05/03/24 10:00 05/07/24 09:15 40 MEQ Diagnostic Test (Pha) 1 strip IQ4HR 05/03/24 00:00 05/08/24 08:57 1 STRIP Insulin Human Regular IQ4HR SC 05/03/24 00:00 05/08/24 04:25 6 UNITS Dextrose 50 ml UD PRN IV 05/02/24 22:30 Acetaminophen/ Hydrocodone Bitart 1 tab Q4HP PRN PO 05/02/24 22:30 05/07/24 23:33 1 TAB Temazepam 15 mg QHSP PRN PO 05/02/24 22:30 Ondansetron HCl 4 mg Q4HP PRN IV 05/02/24 22:30 Acetaminophen 650 mg Q6HP PRN PO 05/02/24 22:30 Chlordiazepoxide HCl 25 mg Q6HPRN PRN PO 05/02/24 22:30 Piperacillin Sod/ Tazobactam Sod 100 ml @ 25 mls/hr Q6H IV 05/06/24 17:00 05/08/24 06:24 25 MLS/HR Laboratory Results Laboratory Tests 05/03/24 05:10 Microbiology Microbiology Date/Time Source Procedure Growth Status 05/02/24 21:50 Blood Blood Culture - Final NO GROWTH AFTER 5 DAYS OF INCUBATION. Complete Assessment/Plan Assessment/Plan ASSESSMENT: Patient is a 49-year-old male seen on the floor for worsening right 2nd toe wound PLAN: - The patients chart was reviewed, clinical findings were discussed with the patient, the etiologies of the conditions were discussed in detail, and a treatment plan was agreed to at this time, with both oral and written instructions provided. - reviewed reviewed MRI which showed osteomyelitis at the distal tip of the 2nd toe - discussed the option of partial amputation versus debridement, we will move forward with surgical partial amputation - plan will be to take him to the OR on today for partial amputation - patient NPO since midnight All questions were answered and concerns addressed to the patient's satisfaction. The patient was given the phone number to the clinic and was told how to make contact with the clinic should any concerns or questions arise. Patient understands that if any questions or concerns arise prior to the next appointment, we should be contacted immediately. FOLLOW-UP: We will continue to follow while inpatient Plan discussed with: Patient My Orders Orders - EVIE LUCAS DPM Procedure Category Date Status Time Npo After Midnight DIET 05/07/24 Transmitted Lunch Obtain Consent For: ORDERS 05/07/24 Transmitted 13:21 Problem List: (1) Cellulitis (2) Uncontrolled diabetes mellitus (3) Folliculitis (4) Dehydration (5) Hypokalemia (6) Alcohol intoxication (7) Toxic encephalopathy (8) Hyperglycemia (9) Stone, kidney (10) Pyelonephritis (11) Altered mental status (12) Acute alcohol intoxication (13) Head trauma (14) DKA (diabetic ketoacidosis) (15) Subarachnoid bleed (16) Bilateral subdural hematomas (17) Periorbital hematoma of right eye (18) Eloped from emergency department Date of Service: May 08, 2024 Billing Provider: EVIE LUCAS DPM Common Visit Codes: [id number] INP/OBS CARE(MOD) EVIE LUCAS DPM May 08, 2024 12:54
--- NOTE | 2024-05-08 12:59 | DVHOP2 ---
Operative Report - 2 Report Details Date: 05/08/24 Preop Diagnosis: 1. Right foot second toe osteomyelitis 2. Right foot toe cellulitis 3. Right foot diabetic foot ulcer Postop Diagnosis: 1. Right foot second toe osteomyelitis 2. Right foot toe cellulitis 3. Right foot diabetic foot ulcer Surgeon: Evie Lucas MD Anesthesiologist: See anesthesia Anesthesia: Mac Drains: None Implant: None Consent: The patient was informed of the risks and benefits of the procedure. These include but are not limited to complications of anesthesia, postoperative infection, incomplete relief of symptoms, recurrence of symptoms, damage to blood vessels, nerves and tendons, deep venous thrombosis, pulmonary embolism and possible need for repeat surgery in the future. Complications: None Estimated Blood Loss: Minimal Fluids: See anesthesia Findings: Consistent with diagnosis Indications for Surgery: Worsening right foot wound Name of Procedure Performed 1. Right foot second toe partial amputation (25526) Procedure Details Procedure Details: PRE-PROCEDURE INFORMATION: In the pre-op holding area, the extremity to be operated on was clearly marked and the patient verified correct laterality of the marking. The patient was transferred to the OR table and placed in a supine position. A timeout was performed in which identification of the correct patient, procedure, location, and materials was done. The right foot and leg were prepped and draped in normal sterile fashion. The foot and leg were exsanguinated and the _ tourniquet was inflated to 300 mmHg. DESCRIPTION OF PROCEDURE: Attention was directed to the right 2nd digit where a fish mouth type incision was made about the DIPJ of the digit. This incision enveloped the ulceration that was on the distal tip of the digit and allowed adequate coverage of the remaining bone for flap closure. This incision was deepened to the level of the bone and utilizing sharp dissection, the distal aspect of the digit was removed at the distal interphalangeal joint level. It was clear after resection of the bone that the remaining bone left intact was viable and appeared to have no signs of osteomyelitis or other infection. Utilizing a rongeur and other instrumentation, all devitalized soft tissue was removed from the area. The infected bone that had been amputated was sent for culture and pathology, and a proximal margin was sent as well. The wound was irrigated copiously with normal saline using cysto tubing. The toe was then closed with 2-0 nylon. All surgical wounds were irrigated copiously with saline and closed in layers with the aforementioned suture material. A dry sterile dressing was placed on the surgical extremity. The patient was placed in a postop shoe. POSTOPERATIVE INFORMATION: The patient tolerated the above noted procedure and anesthesia well and was transferred to the PACU with vital signs stable, and vascular status intact with capillary refill intact to all digits. Patient can return to the floor. Patient be discharged on 2 weeks' worth of p.o. antibiotics. Patient to weightbear as tolerated in the postop shoe. Patient will follow up with me in 1 week. Specimen: Right 2nd distal phalanx Condition Good Disposition Still a Patient EVIE LUCAS DPM May 08, 2024 12:59
--- NOTE | 2024-05-08 13:32 | DVHINCON2 ---
Date of service: May 06, 2024 Family History: Diabetes mellitus G8 MOTHER G8 FATHER Allergies: Coded Allergies: Sulfamethoxazole w/Trimethoprim (Verified Allergy, Severe, 03/06/20) PRURITUS, THROAT SWELLING Vital Signs Vital Signs Date Time Temp Pulse Resp B/P (MAP) Pulse Ox O2 Delivery O2 Flow Rate FiO2 05/08/24 09:00 97.7 59 17 115/81 (92) 98 97.7 05/08/24 08:00 Room Air* 0 21 Labs/Diagnostic Data Labs Test 05/08/24 08:34 05/03/24 05:10 05/02/24 21:50 Range/Units POC Glucose 172 H 70-106 mg/dl White Blood Count 7.2 # 4.4-10.8 10^3/uL Red Blood Count 5.23 4.5-5.90 10^6/uL Hemoglobin 16.2 13.5-17.5 g/dL Hematocrit 46.9 41.0-53.0 % Mean Corpuscular Volume 89.7 80.0-100.0 fL Mean Corpuscular Hemoglobin 30.9 28.0-32.0 pg Mean Corpuscular Hemoglobin Concent 34.5 32.0-36.0 g/dL Red Cell Distribution Width 13.3 11.8-14.3 % Platelet Count 271 140-450 10^3/uL Mean Platelet Volume 7.4 6.9-10.8 fL Neutrophils (%) (Auto) 71.7 37.0-80.0 % Lymphocytes (%) (Auto) 20.0 10.0-50.0 % Monocytes (%) (Auto) 7.2 0.0-12.0 % Eosinophils (%) (Auto) 0.8 0.0-7.0 % Basophils (%) (Auto) 0.3 0.0-2.0 % Neutrophils # (Auto) 5.2 1.6-8.6 10 ^3/uL Lymphocytes # (Auto) 1.4 0.4-5.4 10 ^3/uL Monocytes # (Auto) 0.5 0-1.3 10 ^3/uL Eosinophils # (Auto) 0.1 0-0.8 10 ^3/uL Basophils # (Auto) 0 0-0.2 10 ^3/uL Nucleated Red Blood Cells 0.0 % Sodium Level 131 L 136-145 mmol/L Potassium Level 3.0 L 3.5-5.1 mmol/L Chloride Level 95 L 98-107 mmol/L Carbon Dioxide Level 25 20-31 mmol/L Anion Gap 11 5-15 Blood Urea Nitrogen 9 9-23 mg/dL Creatinine 0.85 0.700-1.30 mg/dL Glomerular Filtration Rate Calc 106 >90 mL/min BUN/Creatinine Ratio 10.6 10.0-20.0 Serum Glucose 336 #H 74-106 mg/dL Calcium Level 9.8 8.7-10.4 mg/dL Lactic Acid Level 1.1 0.4-2.0 mmol/L Plasma/Serum Blood Alcohol 3.8 <10 mg/dL Microbiology Date/Time Source Procedure Growth Status 05/02/24 21:50 Blood Blood Culture - Final NO GROWTH AFTER 5 DAYS OF INCUBATION. Complete Problems(with codes): (1) Cellulitis (2) Uncontrolled diabetes mellitus (3) Alcohol intoxication (4) Toxic encephalopathy (5) Pyelonephritis (6) Altered mental status (7) DKA (diabetic ketoacidosis) (8) Osteomyelitis Plan/Recommendation ASSESSMENT AND PLAN: ID Problem List: - Homelessness - Polysubstance abuse - Uncontrolled diabetes mellitus - Hypertension - Right foot second toe osteomyelitis - Right foot cellulitis - Right foot diabetic ulcer Assessment This is a 49 y.o. male with a past medical history of homelessness, diabetes mellitus, hypertension, and polysubstance abuse, who presents with a right foot infection. The patient reports that the right foot infection has been ongoing for the last two months, with worsening redness over the last month. He notes discharge from the bottom of the second toe and some necrotic features. There was no trauma to the area, and he is unsure how the ulcer initially developed. Podiatry evaluation by Dr. Enriquez noted: - Pulses are good bilaterally. - Feet are cool to touch in the peripheral surfaces. - Right second toe ulcer measuring 1 cm x 0.5 cm; hyperkeratotic, full thicknes s, bleeding with some purulent drainage. Laboratory studies revealed a WBC of 4.5, hemoglobin of 16.1, platelet count of 271, and an elevated blood glucose of 407 mg/dL. Imaging studies: - CT of the right foot showed a focal lytic lesion in the distal tip of the second distal phalanx, which could represent osteomyelitis. There is a linear lucency into the distal tibia and fibula, possibly sequelae of prior trauma of indeterminate chronicity. Diffuse subcutaneous edema is noted in the right foot. - MRI of the right foot shows diffuse subcutaneous soft tissue edema and swelling, most prominent at the second digit, which may represent cellulitis. There is diffuse T1 signal change associated with the distal phalanx of the second digit, suspicious for osteomyelitis. Plan: - Proceed with operative debridement and possible amputation of the right second toe. - Continue broad-spectrum antibiotics (currently receiving clindamycin and Zosyn) as the patient is tolerating them well. - During operative debridement, collect deep tissue cultures of bone and infected deep tissue and muscle to guide antibiotic therapy. - Aim to transition to oral antibiotic therapy, presuming the patient can undergo wound care as an outpatient and achieve blood glucose control. - Address uncontrolled diabetes mellitus with endocrinology consult for glycemic management. - Provide social work consult to assist with homelessness and substance abuse resources. - Monitor vital signs and glucose levels closely. Isolation Precautions: Standard Assessment and plan were discussed with the patient as written above Plan is subject to change pending incorporation of new incoming information/diagnostics. Updates may be added as addendum at the bottom (OR TOP) of this note Thank you for this interesting consult. ID will continue to follow. Please contact Infectious Disease for any questions or concerns. May Mcdaniels M.D. [facility] Ph: ? History: The patient's chart and medications were reviewed in detail, and the patient was seen and examined. History obtained from: Patient Alli Anaya is a 49 y.o. male with a past medical history of homelessness, diabetes mellitus, hypertension, and polysubstance abuse, who presents with a right foot infection. The patient reports that his right foot infection has been ongoing for the last two months, with worsening redness over the last month. He notes discharge from the bottom of his second toe and some necrotic features. He denies any trauma to the area and is unsure how the ulcer initially developed. Review of Systems: A complete 10-system review of systems was completed and negative except as noted in the HPI or here. ROS: - CONSTITUTIONAL: Denies weight loss, fever, and chills. - HEENT: Denies changes in vision and hearing. - RESPIRATORY: Denies shortness of breath and cough. - CV: Denies palpitations and chest pain. - GI: Denies abdominal pain, nausea, vomiting, and diarrhea. - : Denies dysuria and urinary frequency. - MSK: Denies myalgia and joint pain. - SKIN: Reports redness and ulceration of the right foot. - NEUROLOGICAL: Denies headache and syncope. - PSYCHIATRIC: Denies recent changes in mood. Denies anxiety and depression. Past Medical History: Diagnosis Diabetes mellitus Hypertension Polysubstance abuse Homelessness Past Surgical History: History reviewed. No pertinent surgical history. Home Medications: Prior to Admission medications Medication information not available. Allergies: Sulfamethoxazole-trimethoprim (Bactrim): Causes throat swelling and acute kidney injury (BHAVIK). Family History: Family history reviewed. No known family history of chronic illnesses. Social History: Socioeconomic History - Marital status: Not on file - Occupation: Not on file - Housing: Homeless Tobacco Use - Smoking status: Smokes methamphetamine and marijuana. Substance Use - Alcohol use: Heavy alcohol use. - Drug use: Smokes methamphetamine and marijuana. Social Determinants of Health - Financial Resource Strain: High risk due to homelessness. - Food Insecurity: Likely high risk. - Transportation Needs: High risk. Objective: Vital Signs on Arrival: Temp: 98.3?F?BP: 193/139?Pulse: 90?Resp: 18?SpO?: 97% on room air?Pain: 9/10 Physical Exam: General: No acute distress. Neck: Supple. No masses. HEENT: PERRL. Normal lids and conjunctivae. Moist mucous membranes. - Oropharynx without lesions, exudates, or excessive erythema. - Normal appearance of the external aspects of the nose and ears. Heart: Regular rhythm, normal rate. No murmur. No lower extremity edema. Lungs: Normal respiratory effort. Clear to auscultation bilaterally. - No wheezes. No crackles. Abdomen: Soft. Non-tender. Non-distended. No masses or abdominal hernia. MSK: No digital cyanosis. Normal strength and tone in all 4 limbs. Skin: Warm and dry. Right foot with cellulitis, worse on the second toe with an ulcer on the plantar surface. Feet are cool to touch in peripheral surfaces. Neuro: Alert. No facial droop or slurred speech. Extra-ocular movements intact. - Sensation intact to soft touch in all 4 limbs. Psych: Appropriate mood. Full affect. - Oriented to person, place, time, and situation. Lines: Active Lines - Peripheral IV line in place. Diagnostic Studies: Available diagnostic studies were reviewed personally. Significant relevant results and findings are outlined below or addressed in the Assessment and Plan above. Pertinent Imaging: Recent Results (from the past 360 hours) CT Right Foot - Impression: - Focal lytic lesion in the distal tip of the second distal phalanx, which could represent osteomyelitis. - Linear lucency into distal tibia and fibula, which could be sequelae of prior trauma of indeterminate chronicity. - Diffuse subcutaneous edema in the right foot. MRI Right Foot - Impression: - Diffuse subcutaneous soft tissue edema and swelling, most prominent at the second digit, may represent cellulitis. - Diffuse T1 signal change associated with the distal phalanx of the second digit, suspicious for osteomyelitis. Laboratory Studies: WBC: 4.5??10/L - Hemoglobin: 16.1?g/dL - Platelets: 271??10/L - Blood Glucose: 407?mg/dL - Blood Cultures: No growth to date Plan discussed with: Patient MAY MCDANIELS MD May 08, 2024 13:32
--- NOTE | 2024-05-08 19:35 | DVHPN2 ---
Consult Progress Note Date Seen: May 07, 2024 Subjective Patient reports: Feels better Objective vital signs Vital Sign Date Time Temp Pulse Resp B/P (MAP) Pulse Ox O2 Delivery O2 Flow Rate FiO2 05/08/24 17:00 98.1 66 18 109/68 (82) 97 98.1 05/08/24 12:50 Room Air 05/08/24 12:50 21 05/08/24 08:00 0 Total Intake and Output 05/07/24 05/07/24 05/08/24 15:00 23:00 07:00 Intake Total 200 ml 1350 ml 950 ml Output Total 1000 ml Balance 200 ml 1350 ml -50 ml medications Current Medications Medications Dose Ordered Sig/El Route Start Time Stop Time Status Last Admin Dose Admin Clindamycin Phosphate 50 ml @ 50 mls/hr Q8HR IV 05/03/24 06:00 05/08/24 14:06 50 MLS/HR Potassium Chloride 40 meq DAILY PO 05/03/24 10:00 05/07/24 09:15 40 MEQ Diagnostic Test (Pha) 1 strip IQ4HR 05/03/24 00:00 05/08/24 15:31 1 STRIP Insulin Human Regular IQ4HR SC 05/03/24 00:00 05/08/24 15:32 6 UNITS Dextrose 50 ml UD PRN IV 05/02/24 22:30 Acetaminophen/ Hydrocodone Bitart 1 tab Q4HP PRN PO 05/02/24 22:30 05/08/24 16:40 1 TAB Temazepam 15 mg QHSP PRN PO 05/02/24 22:30 Ondansetron HCl 4 mg Q4HP PRN IV 05/02/24 22:30 Acetaminophen 650 mg Q6HP PRN PO 05/02/24 22:30 Chlordiazepoxide HCl 25 mg Q6HPRN PRN PO 05/02/24 22:30 Piperacillin Sod/ Tazobactam Sod 100 ml @ 25 mls/hr Q6H IV 05/06/24 17:00 05/08/24 16:34 25 MLS/HR Physical Exam: General: No acute distress. Neck: Supple. No masses. HEENT: PERRL. Normal lids and conjunctivae. Moist mucous membranes. - Oropharynx without lesions, exudates, or excessive erythema. - Normal appearance of the external aspects of the nose and ears. Heart: Regular rhythm, normal rate. No murmur. No lower extremity edema. Lungs: Normal respiratory effort. Clear to auscultation bilaterally. - No wheezes. No crackles. Abdomen: Soft. Non-tender. Non-distended. No masses or abdominal hernia. MSK: No digital cyanosis. Normal strength and tone in all 4 limbs. Skin: Warm and dry. Right foot with cellulitis, worse on the second toe with an ulcer on the plantar surface. Feet are cool to touch in peripheral surfaces. Neuro: Alert. No facial droop or slurred speech. Extra-ocular movements intact. - Sensation intact to soft touch in all 4 limbs. Psych: Appropriate mood. Full affect. - Oriented to person, place, time, and situation. laboratory and microbiology Laboratory Tests 05/03/24 05:10 Test 05/03/24 05:10 Range/Units Serum Glucose 336 #H 74-106 mg/dL Problem List/Assessment/Plan Problem List/Assessment/Plan ASSESSMENT AND PLAN: ID Problem List: - Homelessness - Polysubstance abuse - Uncontrolled diabetes mellitus - Hypertension - Right foot second toe osteomyelitis - Right foot cellulitis - Right foot diabetic ulcer Assessment This is a 49 y.o. male with a past medical history of homelessness, diabetes mellitus, hypertension, and polysubstance abuse, who presents with a right foot infection. The patient reports that the right foot infection has been ongoing for the last two months, with worsening redness over the last month. He notes discharge from the bottom of the second toe and some necrotic features. There was no trauma to the area, and he is unsure how the ulcer initially developed. Podiatry evaluation by Dr. Enriquez noted: - Pulses are good bilaterally. - Feet are cool to touch in the peripheral surfaces. - Right second toe ulcer measuring 1 cm x 0.5 cm; hyperkeratotic, full thickness, bleeding with some purulent drainage. Laboratory studies revealed a WBC of 4.5, hemoglobin of 16.1, platelet count of 271, and an elevated blood glucose of 407 mg/dL. Imaging studies: - CT of the right foot showed a focal lytic lesion in the distal tip of the second distal phalanx, which could represent osteomyelitis. There is a linear lucency into the distal tibia and fibula, possibly sequelae of prior trauma of indeterminate chronicity. Diffuse subcutaneous edema is noted in the right foot. - MRI of the right foot shows diffuse subcutaneous soft tissue edema and swelling, most prominent at the second digit, which may represent cellulitis. There is diffuse T1 signal change associated with the distal phalanx of the second digit, suspicious for osteomyelitis. Plan: - Proceed with operative debridement and possible amputation of the right second toe. - Continue broad-spectrum antibiotics (currently receiving clindamycin and Zosyn) as the patient is tolerating them well. - During operative debridement, collect deep tissue cultures of bone and infected deep tissue and muscle to guide antibiotic therapy. - Aim to transition to oral antibiotic therapy, presuming the patient can undergo wound care as an outpatient and achieve blood glucose control. - Address uncontrolled diabetes mellitus with endocrinology consult for glycemic management. - Provide social work consult to assist with homelessness and substance abuse resources. - Monitor vital signs and glucose levels closely. Isolation Precautions: Standard Assessment and plan were discussed with the patient as written above Plan is subject to change pending incorporation of new incoming information/diagnostics. Updates may be added as addendum at the bottom (OR TOP) of this note Thank you for this interesting consult. ID will continue to follow. Please contact Infectious Disease for any questions or concerns. May Mcdaniels M.D. [facility] Plan discussed with: Patient Dietary Evaluation Review Comments: 1) Consider PACO 1 pkt BID for wound 2) Continue current plan of care Expected Outcomes/Goals: 1) Pt labs to improve 2) F/U in 3-5 days MAY MCDANIELS MD May 08, 2024 19:35
--- NOTE | 2024-05-08 21:48 | DVHPN2 ---
Consult Progress Note Date Seen: May 08, 2024 Subjective Patient reports: Feels better (had surgery today and noting no pain or bleeding , no cellulitic changes ) Objective vital signs Vital Sign Date Time Temp Pulse Resp B/P (MAP) Pulse Ox O2 Delivery O2 Flow Rate FiO2 05/08/24 17:00 98.1 66 18 109/68 (82) 97 98.1 05/08/24 12:50 Room Air 05/08/24 12:50 21 05/08/24 08:00 0 Total Intake and Output 05/07/24 05/07/24 05/08/24 15:00 23:00 07:00 Intake Total 200 ml 1350 ml 950 ml Output Total 1000 ml Balance 200 ml 1350 ml -50 ml medications Current Medications Medications Dose Ordered Sig/El Route Start Time Stop Time Status Last Admin Dose Admin Clindamycin Phosphate 50 ml @ 50 mls/hr Q8HR IV 05/03/24 06:00 05/08/24 21:02 50 MLS/HR Potassium Chloride 40 meq DAILY PO 05/03/24 10:00 05/07/24 09:15 40 MEQ Diagnostic Test (Pha) 1 strip IQ4HR 05/03/24 00:00 05/08/24 20:00 1 STRIP Insulin Human Regular IQ4HR SC 05/03/24 00:00 05/08/24 20:00 10 UNITS Dextrose 50 ml UD PRN IV 05/02/24 22:30 Acetaminophen/ Hydrocodone Bitart 1 tab Q4HP PRN PO 05/02/24 22:30 05/08/24 16:40 1 TAB Temazepam 15 mg QHSP PRN PO 05/02/24 22:30 Ondansetron HCl 4 mg Q4HP PRN IV 05/02/24 22:30 Acetaminophen 650 mg Q6HP PRN PO 05/02/24 22:30 Chlordiazepoxide HCl 25 mg Q6HPRN PRN PO 05/02/24 22:30 Piperacillin Sod/ Tazobactam Sod 100 ml @ 25 mls/hr Q6H IV 05/06/24 17:00 05/08/24 16:34 25 MLS/HR Physical Exam: General: No acute distress. Neck: Supple. No masses. HEENT: PERRL. Normal lids and conjunctivae. Moist mucous membranes. - Oropharynx without lesions, exudates, or excessive erythema. - Normal appearance of the external aspects of the nose and ears. Heart: Regular rhythm, normal rate. No murmur. No lower extremity edema. Lungs: Normal respiratory effort. Clear to auscultation bilaterally. - No wheezes. No crackles. Abdomen: Soft. Non-tender. Non-distended. No masses or abdominal hernia. MSK: No digital cyanosis. Normal strength and tone in all 4 limbs. Skin: Warm and dry. Right foot with cellulitis, worse on the second toe with an ulcer on the plantar surface. Feet are cool to touch in peripheral surfaces. Neuro: Alert. No facial droop or slurred speech. Extra-ocular movements intact. - Sensation intact to soft touch in all 4 limbs. Psych: Appropriate mood. Full affect. - Oriented to person, place, time, and situation. laboratory and microbiology Laboratory Tests 05/03/24 05:10 Test 05/03/24 05:10 Range/Units Serum Glucose 336 #H 74-106 mg/dL Problem List/Assessment/Plan Problems(with codes): (1) Pyelonephritis (2) DKA (diabetic ketoacidosis) (3) Subarachnoid bleed (4) Bilateral subdural hematomas (5) Periorbital hematoma of right eye (6) Eloped from emergency department (7) Osteomyelitis Problem List/Assessment/Plan ASSESSMENT AND PLAN: ID Problem List: - Homelessness - Polysubstance abuse - Uncontrolled diabetes mellitus - Hypertension - Right foot second toe osteomyelitis - Right foot cellulitis - Right foot diabetic ulcer Assessment This is a 49 y.o. male with a past medical history of homelessness, diabetes mellitus, hypertension, and polysubstance abuse, who presents with a right foot infection. The patient reports that the right foot infection has been ongoing for the last two months, with worsening redness over the last month. He notes discharge from the bottom of the second toe and some necrotic features. There was no trauma to the area, and he is unsure how the ulcer initially developed. Podiatry evaluation by Dr. Enriquez noted: - Pulses are good bilaterally. - Feet are cool to touch in the peripheral surfaces. - Right second toe ulcer measuring 1 cm x 0.5 cm; hyperkeratotic, full thickness, bleeding with some purulent drainage. Laboratory studies revealed a WBC of 4.5, hemoglobin of 16.1, platelet count of 271, and an elevated blood glucose of 407 mg/dL. Imaging studies: - CT of the right foot showed a focal lytic lesion in the distal tip of the second distal phalanx, which could represent osteomyelitis. There is a linear lucency into the distal tibia and fibula, possibly sequelae of prior trauma of indeterminate chronicity. Diffuse subcutaneous edema is noted in the right foot. - MRI of the right foot shows diffuse subcutaneous soft tissue edema and swelling, most prominent at the second digit, which may represent cellulitis. There is diffuse T1 signal change associated with the distal phalanx of the second digit, suspicious for osteomyelitis. 05/08: patient underwent debridement of his right second toe , incision was made on the distal tip of the digit and was deep into the level of the bone and the digit was removed at the distal inter phalangeal joint level, the remaining bone appeared intact , no signs of osteomyelitis remaining. blood cultures are no growth to date Plan: - Patient tolerated procedure well , recommend patient be discharged on 2 weeks oral clindamycin 300 milligrams x4 a day as well as oral levofloxacin 750 milligrams x1 a day - follow up on perative cultures - Continue broad-spectrum antibiotics (currently receiving IV clindamycin and IV Zosyn) white inpatient - close follow up with podiatry as well as outpaitent wound care to ensure wound continues to heal , would emphasize the importance with having close follow up with primary doctor for seeking imrpovement of blood glucose - Recommend go home with an insulin regimen , paatient states hes out of insulin - During operative debridement, collect deep tissue cultures of bone and infected deep tissue and muscle to guide antibiotic therapy. - Aim to transition to oral antibiotic therapy, presuming the patient can undergo wound care as an outpatient and achieve blood glucose control. - Address uncontrolled diabetes mellitus with endocrinology consult for glycemic management. - Provide social work consult to assist with homelessness and substance abuse resources. - Monitor vital signs and glucose levels closely. Isolation Precautions: Standard Assessment and plan were discussed with the patient as written above Plan is subject to change pending incorporation of new incoming information/diagnostics. Updates may be added as addendum at the bottom (OR TOP) of this note Thank you for this interesting consult. ID will continue to follow. Please contact Infectious Disease for any questions or concerns. May Mcdaniels M.D. [facility] Plan discussed with: Other Dietary Evaluation Review Comments: 1) Consider PACO 1 pkt BID for wound 2) Continue current plan of care Expected Outcomes/Goals: 1) Pt labs to improve 2) F/U in 3-5 days MAY MCDANIELS MD May 08, 2024 21:48
[2024-05-09 05:00] VITALS: BP 102/59; PULSE 64; RESP 19; TEMP 98.2; O2SAT 96
[2024-05-09 08:00] VITALS: PULSE 58; RESP 21; O2SAT 97
[2024-05-09 09:00] VITALS: BP 110/67; PULSE 58; RESP 21; TEMP 98.9; O2SAT 97
--- NOTE | 2024-05-09 11:17 | DVHPN2 ---
Subjective The patient is seen and examined at bedside. Status post 2nd toe amputation. Patient complained of pain in the foot. No fever or chill overnight. Reviewed: Care Plan, H&P, Labs, Medications, Previous Orders, Radiology Changes from previous H/P or p: No Changes General: Per HPI Objective Vitals Vital Signs Date Time Temp Pulse Resp B/P (MAP) Pulse Ox O2 Delivery O2 Flow Rate FiO2 05/09/24 09:00 98.9 58 21 110/67 (81) 97 98.9 05/08/24 20:00 Room Air* 0 21 Intake/Output Intake and Output 05/09/24 07:00 Intake Total 1350 ml Output Total 1725 ml Balance -375 ml Intake Oral 1100 ml IV Total 250 ml Output Urine Total 1725 ml # Bowel Movements 2 General Appearance: Alert, Oriented X3, Cooperative Cardiovascular: Regular rate, Normal S1, Normal S2 Abdomen: Normal bowel sounds Medications Current Medications Medications Dose Ordered Sig/El Route Start Time Stop Time Status Last Admin Dose Admin Clindamycin Phosphate 50 ml @ 50 mls/hr Q8HR IV 05/03/24 06:00 05/09/24 05:42 50 MLS/HR Potassium Chloride 40 meq DAILY PO 05/03/24 10:00 05/07/24 09:15 40 MEQ Diagnostic Test (Pha) 1 strip IQ4HR 05/03/24 00:00 05/09/24 07:54 1 STRIP Insulin Human Regular IQ4HR SC 05/03/24 00:00 05/09/24 03:28 2 UNITS Dextrose 50 ml UD PRN IV 05/02/24 22:30 Acetaminophen/ Hydrocodone Bitart 1 tab Q4HP PRN PO 05/02/24 22:30 05/09/24 07:30 1 TAB Temazepam 15 mg QHSP PRN PO 05/02/24 22:30 Ondansetron HCl 4 mg Q4HP PRN IV 05/02/24 22:30 Acetaminophen 650 mg Q6HP PRN PO 05/02/24 22:30 Chlordiazepoxide HCl 25 mg Q6HPRN PRN PO 05/02/24 22:30 Piperacillin Sod/ Tazobactam Sod 100 ml @ 25 mls/hr Q6H IV 05/06/24 17:00 05/09/24 05:43 25 MLS/HR Laboratory Results Laboratory Tests 05/03/24 05:10 Microbiology Microbiology Date/Time Source Procedure Growth Status 05/02/24 21:50 Blood Blood Culture - Final NO GROWTH AFTER 5 DAYS OF INCUBATION. Complete Labs and/or images reviewed: Labs reviewed by me Assessment/Plan Assessment/Plan Right foot cellulitis Right 2nd toe osteomyelitis status post right partial 2nd toe amputation Uncontrolled diabetes mellitus Electrolyte imbalance Continuing current management. Continuing with IV antibiotic clindamycin and ceftriaxone. The MRI of the foot showed osteomyelitis Status post right partial 2nd toe amputation Continuing IV pain medication and [place] for pain control Discussed with patient regarding to plan of care Replace electrolytes as needed Waiting for tissue culture. Plan discussed with: Patient Date of Service: May 09, 2024 Billing Provider: BRAD JUDGE MD Common Visit Codes: [id number] INP/OBS CARE(HIGH) BRAD JUDGE MD May 09, 2024 11:17
[2024-05-09 13:03] VITALS: BP 114/64; PULSE 55; RESP 16; TEMP 97.8; O2SAT 96
--- NOTE | 2024-05-09 14:15 | DVHPN2 ---
Subjective 49 year old male BRANDON presents to the ED with chief complaint of right foot pain. Patient reports that he has been experiencing worsening right foot pain with associated redness, swelling, and discharge noted to the toes for the past 2 months. EMS relays patient is homeless and has history of DM, however, he is not taking any medication. Patient denies any numbness, weakness, fever, or chills. Reviewed: Care Plan, H&P, Labs, Medications, Previous Orders, Radiology Changes from previous H/P or p: No Changes General: Per HPI Objective Vitals Vital Signs Date Time Temp Pulse Resp B/P (MAP) Pulse Ox O2 Delivery O2 Flow Rate FiO2 05/09/24 13:03 97.8 55 16 114/64 (81) 96 97.8 05/09/24 08:00 Room Air* 0 21 Intake/Output Intake and Output 05/09/24 07:00 Intake Total 1350 ml Output Total 1725 ml Balance -375 ml Intake Oral 1100 ml IV Total 250 ml Output Urine Total 1725 ml # Bowel Movements 2 Exam DERMATOLOGIC EXAM: - Skin is dry and cool to the touch dry bilaterally. - Nails 1-5 of the bilateral foot are thickened, discolored, dystrophic, and tender to palpate with subungual debris - Hair loss noted to bilateral feet Wound #1: Location: Right distal 2nd toe Measurements: Length 1 cm x width 1 cm x depth 0.5 cm. Wound margins: Hyperkeratotic. Wound base: Full thickness. General Appearance: Healthy and bleeding. Probes to Bone: Yes Purulent drainage: No Serous drainage: No Erythema: Present to the level of the toe VASCULAR EXAM: - DP and PT pulses are palpable bilaterally. - PIERCER is brisk to all digits. - Feet are cool to touch compared to lower legs bilaterally. NEUROLOGIC EXAM: - Normal light touch sensation to the superficial peroneal, deep peroneal, sural, saphenous, and tibial nerve branches. - Protective sensation is diminished as tested with a 5.07 10g Bath-Tim bilaterally. MUSCULOSKELETAL EXAM: - No gross deformities - Muscle strength is 5/5 and active motion is pain-free and symmetrical bilaterally - No pain or crepitation with passive range of motion bilaterally to all major pedal joints General Appearance: Alert, Oriented X3, Cooperative Cardiovascular: Regular rate, Normal S1, Normal S2 Abdomen: Normal bowel sounds Medications Current Medications Medications Dose Ordered Sig/El Route Start Time Stop Time Status Last Admin Dose Admin Clindamycin Phosphate 50 ml @ 50 mls/hr Q8HR IV 05/03/24 06:00 05/09/24 05:42 50 MLS/HR Potassium Chloride 40 meq DAILY PO 05/03/24 10:00 05/09/24 11:15 40 MEQ Diagnostic Test (Pha) 1 strip IQ4HR 05/03/24 00:00 05/09/24 11:24 1 STRIP Insulin Human Regular IQ4HR SC 05/03/24 00:00 05/09/24 11:25 8 UNITS Dextrose 50 ml UD PRN IV 05/02/24 22:30 Acetaminophen/ Hydrocodone Bitart 1 tab Q4HP PRN PO 05/02/24 22:30 05/09/24 11:33 1 TAB Temazepam 15 mg QHSP PRN PO 05/02/24 22:30 Ondansetron HCl 4 mg Q4HP PRN IV 05/02/24 22:30 Acetaminophen 650 mg Q6HP PRN PO 05/02/24 22:30 Chlordiazepoxide HCl 25 mg Q6HPRN PRN PO 05/02/24 22:30 Piperacillin Sod/ Tazobactam Sod 100 ml @ 25 mls/hr Q6H IV 05/06/24 17:00 05/09/24 11:14 25 MLS/HR Laboratory Results Laboratory Tests 05/03/24 05:10 Microbiology Microbiology Date/Time Source Procedure Growth Status 05/02/24 21:50 Blood Blood Culture - Final NO GROWTH AFTER 5 DAYS OF INCUBATION. Complete Assessment/Plan Assessment/Plan ASSESSMENT: Patient is a 49-year-old male seen on the floor 1 day s/p second toe amputation PLAN: - The patients chart was reviewed, clinical findings were discussed with the patient, the etiologies of the conditions were discussed in detail, and a treatment plan was agreed to at this time, with both oral and written instructions provided. - discussed with the patient that surgery went well - there was complete removal of all the necrotic osteomyelitis bone - recommend patient leave the dressing clean dry and intact until postop - patient to follow up with me in 1 week - recommend 2 weeks of p.o. antibiotics All questions were answered and concerns addressed to the patient's satisfaction. The patient was given the phone number to the clinic and was told how to make contact with the clinic should any concerns or questions arise. Patient understands that if any questions or concerns arise prior to the next appointment, we should be contacted immediately. FOLLOW-UP: We will continue to follow while inpatient Plan discussed with: Patient Problem List: (1) Cellulitis (2) Uncontrolled diabetes mellitus (3) Folliculitis (4) Dehydration (5) Hypokalemia (6) Alcohol intoxication (7) Toxic encephalopathy (8) Hyperglycemia (9) Stone, kidney (10) Pyelonephritis (11) Altered mental status (12) Acute alcohol intoxication (13) Head trauma (14) DKA (diabetic ketoacidosis) (15) Subarachnoid bleed (16) Bilateral subdural hematomas (17) Periorbital hematoma of right eye (18) Eloped from emergency department (19) Osteomyelitis Date of Service: May 09, 2024 Billing Provider: EVIE LUCAS DPM Common Visit Codes: [id number] INP/OBS CARE(MOD) EVIE LUCAS DPM May 09, 2024 14:15
[2024-05-09 16:54] VITALS: BP 107/61; PULSE 63; RESP 16; TEMP 97.9; O2SAT 94
[2024-05-09 21:00] VITALS: BP 106/69; PULSE 63; RESP 18; TEMP 97.8; O2SAT 98
--- NOTE | 2024-05-09 22:28 | DVHPN2 ---
Consult Progress Note Date Seen: May 09, 2024 Subjective Patient reports: Feels better (wound is well wrapped and no pain ) Objective vital signs Vital Sign Date Time Temp Pulse Resp B/P (MAP) Pulse Ox O2 Delivery O2 Flow Rate FiO2 05/09/24 21:00 97.8 63 18 106/69 (81) 98 97.8 05/09/24 08:00 Room Air* 0 21 Total Intake and Output 05/08/24 05/08/24 05/09/24 15:00 23:00 07:00 Intake Total 200 ml 750 ml 400 ml Output Total 1075 ml 650 ml Balance 200 ml -325 ml -250 ml medications Current Medications Medications Dose Ordered Sig/El Route Start Time Stop Time Status Last Admin Dose Admin Clindamycin Phosphate 50 ml @ 50 mls/hr Q8HR IV 05/03/24 06:00 05/09/24 21:53 50 MLS/HR Potassium Chloride 40 meq DAILY PO 05/03/24 10:00 05/09/24 11:15 40 MEQ Diagnostic Test (Pha) 1 strip IQ4HR 05/03/24 00:00 05/09/24 20:08 1 STRIP Insulin Human Regular IQ4HR SC 05/03/24 00:00 05/09/24 20:14 10 UNITS Dextrose 50 ml UD PRN IV 05/02/24 22:30 Acetaminophen/ Hydrocodone Bitart 1 tab Q4HP PRN PO 05/02/24 22:30 05/09/24 21:53 1 TAB Temazepam 15 mg QHSP PRN PO 05/02/24 22:30 Ondansetron HCl 4 mg Q4HP PRN IV 05/02/24 22:30 Acetaminophen 650 mg Q6HP PRN PO 05/02/24 22:30 Chlordiazepoxide HCl 25 mg Q6HPRN PRN PO 05/02/24 22:30 Piperacillin Sod/ Tazobactam Sod 100 ml @ 25 mls/hr Q6H IV 05/06/24 17:00 05/09/24 17:40 25 MLS/HR Physical Exam: General: No acute distress. Neck: Supple. No masses. HEENT: PERRL. Normal lids and conjunctivae. Moist mucous membranes. - Oropharynx without lesions, exudates, or excessive erythema. - Normal appearance of the external aspects of the nose and ears. Heart: Regular rhythm, normal rate. No murmur. No lower extremity edema. Lungs: Normal respiratory effort. Clear to auscultation bilaterally. - No wheezes. No crackles. Abdomen: Soft. Non-tender. Non-distended. No masses or abdominal hernia. MSK: No digital cyanosis. Normal strength and tone in all 4 limbs. Skin: Warm and dry. Right foot with cellulitis, worse on the second toe with an ulcer on the plantar surface. Feet are cool to touch in peripheral surfaces. Neuro: Alert. No facial droop or slurred speech. Extra-ocular movements intact. - Sensation intact to soft touch in all 4 limbs. Psych: Appropriate mood. Full affect. - Oriented to person, place, time, and situation. laboratory and microbiology Laboratory Tests 05/03/24 05:10 Test 05/03/24 05:10 Range/Units Serum Glucose 336 #H 74-106 mg/dL Problem List/Assessment/Plan Problems(with codes): (1) Osteomyelitis (2) Eloped from emergency department (3) Periorbital hematoma of right eye (4) Subarachnoid bleed (5) Bilateral subdural hematomas (6) DKA (diabetic ketoacidosis) (7) Head trauma (8) Altered mental status Problem List/Assessment/Plan ASSESSMENT AND PLAN: ID Problem List: - Homelessness - Polysubstance abuse - Uncontrolled diabetes mellitus - Hypertension - Right foot second toe osteomyelitis - Right foot cellulitis - Right foot diabetic ulcer Assessment This is a 49 y.o. male with a past medical history of homelessness, diabetes mellitus, hypertension, and polysubstance abuse, who presents with a right foot infection. The patient reports that the right foot infection has been ongoing for the last two months, with worsening redness over the last month. He notes discharge from the bottom of the second toe and some necrotic features. There was no trauma to the area, and he is unsure how the ulcer initially developed. Podiatry evaluation by Dr. Enriquez noted: - Pulses are good bilaterally. - Feet are cool to touch in the peripheral surfaces. - Right second toe ulcer measuring 1 cm x 0.5 cm; hyperkeratotic, full thickness, bleeding with some purulent drainage. Laboratory studies revealed a WBC of 4.5, hemoglobin of 16.1, platelet count of 271, and an elevated blood glucose of 407 mg/dL. Imaging studies: - CT of the right foot showed a focal lytic lesion in the distal tip of the second distal phalanx, which could represent osteomyelitis. There is a linear lucency into the distal tibia and fibula, possibly sequelae of prior trauma of indeterminate chronicity. Diffuse subcutaneous edema is noted in the right foot. - MRI of the right foot shows diffuse subcutaneous soft tissue edema and swelling, most prominent at the second digit, which may represent cellulitis. There is diffuse T1 signal change associated with the distal phalanx of the second digit, suspicious for osteomyelitis. 05/08: patient underwent debridement of his right second toe , incision was made on the distal tip of the digit and was deep into the level of the bone and the digit was removed at the distal inter phalangeal joint level, the remaining bone appeared intact , no signs of osteomyelitis remaining. blood cultures are no growth to date 05/09: tolerating antibiotics Plan: - Patient tolerated procedure well , recommend patient be discharged on 2 weeks oral clindamycin 300 milligrams x4 a day as well as oral levofloxacin 750 milligrams x1 a day - follow up on perative cultures - Continue broad-spectrum antibiotics (currently receiving IV clindamycin and IV Zosyn) white inpatient - close follow up with podiatry as well as outpaitent wound care to ensure wound continues to heal , would emphasize the importance with having close follow up with primary doctor for seeking imrpovement of blood glucose - Recommend go home with an insulin regimen , paatient states hes out of insulin - During operative debridement, collect deep tissue cultures of bone and infected deep tissue and muscle to guide antibiotic therapy. - Aim to transition to oral antibiotic therapy, presuming the patient can undergo wound care as an outpatient and achieve blood glucose control. - Address uncontrolled diabetes mellitus with endocrinology consult for glycemic management. - Provide social work consult to assist with homelessness and substance abuse resources. - Monitor vital signs and glucose levels closely. Isolation Precautions: Standard Assessment and plan were discussed with the patient as written above Plan is subject to change pending incorporation of new incoming information/diagnostics. Updates may be added as addendum at the bottom (OR TOP) of this note Thank you for this interesting consult. ID will continue to follow. Please contact Infectious Disease for any questions or concerns. May Mcdaniels M.D. [facility] Plan discussed with: Other Dietary Evaluation Review Comments: 1) Consider PACO 1 pkt BID for wound 2) Continue current plan of care Expected Outcomes/Goals: 1) Pt labs to improve 2) F/U in 3-5 days MAY MCDANIELS MD May 09, 2024 22:28
[2024-05-10] VITALS (8 sets, daily range): BP systolic 101–112; BP diastolic 60–74; PULSE 61–75; RESP 16–19; TEMP 97.5–98.7; O2SAT 93–100
--- NOTE | 2024-05-10 11:34 | DVHPN2 ---
Subjective The patient is seen and examined at bedside. Status post 2nd toe amputation. Patient complained of pain in the foot. No fever or chill overnight. Reviewed: Care Plan, H&P, Labs, Medications, Previous Orders, Radiology Changes from previous H/P or p: No Changes General: Per HPI Objective Vitals Vital Signs Date Time Temp Pulse Resp B/P (MAP) Pulse Ox O2 Delivery O2 Flow Rate FiO2 05/10/24 09:00 97.7 61 18 108/70 (83) 93 97.7 05/10/24 08:00 Room Air* 0 21 Intake/Output Intake and Output 05/10/24 07:00 Intake Total 2470 ml Output Total 1860 ml Balance 610 ml Intake Oral 2220 ml IV Total 250 ml Output Urine Total 1860 ml # Voids 6 General Appearance: Alert, Oriented X3, Cooperative HEENT: Atraumatic, PERRLA, EOMI, Mucous membr. moist/pink Cardiovascular: Regular rate, Normal S1, Normal S2 Abdomen: Normal bowel sounds Neuro: Cranial nerves 3-12 NL Psych/Mental Status: Mental status NL Medications Current Medications Medications Dose Ordered Sig/El Route Start Time Stop Time Status Last Admin Dose Admin Clindamycin Phosphate 50 ml @ 50 mls/hr Q8HR IV 05/03/24 06:00 05/10/24 04:43 50 MLS/HR Potassium Chloride 40 meq DAILY PO 05/03/24 10:00 05/09/24 11:15 40 MEQ Diagnostic Test (Pha) 1 strip IQ4HR 05/03/24 00:00 05/10/24 08:44 1 STRIP Insulin Human Regular IQ4HR SC 05/03/24 00:00 05/10/24 08:50 2 UNITS Dextrose 50 ml UD PRN IV 05/02/24 22:30 Acetaminophen/ Hydrocodone Bitart 1 tab Q4HP PRN PO 05/02/24 22:30 05/10/24 06:42 1 TAB Ondansetron HCl 4 mg Q4HP PRN IV 05/02/24 22:30 Acetaminophen 650 mg Q6HP PRN PO 05/02/24 22:30 Chlordiazepoxide HCl 25 mg Q6HPRN PRN PO 05/02/24 22:30 Piperacillin Sod/ Tazobactam Sod 100 ml @ 25 mls/hr Q6H IV 05/06/24 17:00 05/10/24 04:46 25 MLS/HR Laboratory Results Laboratory Tests 05/03/24 05:10 Microbiology Microbiology Date/Time Source Procedure Growth Status 05/02/24 21:50 Blood Blood Culture - Final NO GROWTH AFTER 5 DAYS OF INCUBATION. Complete Labs and/or images reviewed: Labs reviewed by me Assessment/Plan Assessment/Plan Right foot cellulitis Right 2nd toe osteomyelitis status post right partial 2nd toe amputation Uncontrolled diabetes mellitus Electrolyte imbalance Continuing current management. Continuing with IV antibiotic clindamycin and ceftriaxone. The MRI of the foot showed osteomyelitis Status post right partial 2nd toe amputation Continuing IV pain medication and [place] for pain control Discussed with patient regarding to plan of care Replace electrolytes as needed Waiting for tissue culture. Working with case filler to see if I can set up wound care as outpatient for patient since he is homeless. Per infectious disease specialist, patient can be d/c with PO meds. Waiting for culture. Plan discussed with: Patient Date of Service: May 10, 2024 Billing Provider: BRAD JUDGE MD Common Visit Codes: [id number] INP/OBS CARE(HIGH) BRAD JUDGE MD May 10, 2024 11:34
[2024-05-10 13:05] LABS: Basophils # (auto) 0.1 10 ^3/uL (0-0.2); Eosinophils # (auto) 0.1 10 ^3/uL (0-0.8); Eosinophils % (auto) 1.9 % (0.0-7.0); Hematocrit 44.4 % (41.0-53.0); Hemoglobin 14.8 g/dL (13.5-17.5); Lymphocytes # (auto) 1.5 10 ^3/uL (0.4-5.4); Lymphocytes % (auto) 27.4 % (10.0-50.0); Mean Corpuscular Hemoglobin 30.7 pg (28.0-32.0); Mean Corpuscular Hgb Conc. 33.4 g/dL (32.0-36.0); Mean Corpuscular Volume 92.1 fL (80.0-100.0); Monocytes # (auto) 0.5 10 ^3/uL (0-1.3); Monocytes % (auto) 9.1 % (0.0-12.0); Neutrophils # (auto) 3.2 10 ^3/uL (1.6-8.6); Neutrophils % (auto) 60.6 % (37.0-80.0); Nucleated Red Blood Cells % 0.1 %; Platelet Count (auto) 267 10^3/uL (140-450); Red Blood Cells 4.82 10^6/uL (4.5-5.90); Red Cell Distribution Width 13.3 % (11.8-14.3); White Blood Cell 5.3 10^3/uL (4.4-10.8)
[2024-05-10 13:16] LABS: Chloride 103 mmol/L (98-107); Potassium 4.5 mmol/L (3.5-5.1); Sodium 137 mmol/L (136-145)
[2024-05-10 13:17] LABS: Anion Gap 4 (5-15); Calcium 9.6 mg/dL (8.7-10.4); Carbon Dioxide 30 mmol/L (20-31)
[2024-05-10 13:22] LABS: BUN/Creatinine Ratio 8.8 (10.0-20.0); Blood Urea Nitrogen 7 mg/dL (9-23); Glucose 225 mg/dL (74-106)
[2024-05-11 05:15] VITALS: BP 104/70; PULSE 58; RESP 20; O2SAT 97
[2024-05-11 08:00] VITALS: PULSE 62; RESP 16; O2SAT 98
--- NOTE | 2024-05-11 10:55 | DVHPN2 ---
Subjective The patient is seen and examined at bedside. Status post 2nd toe amputation. Patient complained of pain in the foot. No fever or chill overnight. Reviewed: Care Plan, H&P, Labs, Medications, Previous Orders, Radiology Changes from previous H/P or p: No Changes General: Per HPI Objective Vitals Vital Signs Date Time Temp Pulse Resp B/P (MAP) Pulse Ox O2 Delivery O2 Flow Rate FiO2 05/11/24 08:00 62 16 98 Room Air* 0 21 05/11/24 05:15 104/70 (81) 05/10/24 21:00 97.5 97.5 Intake/Output Intake and Output 05/11/24 07:00 Intake Total 3034 ml Output Total 4375 ml Balance -1341 ml Intake Oral 2634 ml IV Total 400 ml Output Urine Total 4375 ml General Appearance: Alert, Oriented X3, Cooperative HEENT: Atraumatic, PERRLA, EOMI, Mucous membr. moist/pink Cardiovascular: Regular rate, Normal S1, Normal S2 Abdomen: Normal bowel sounds Neuro: Cranial nerves 3-12 NL Psych/Mental Status: Mental status NL Medications Current Medications Medications Dose Ordered Sig/El Route Start Time Stop Time Status Last Admin Dose Admin Clindamycin Phosphate 50 ml @ 50 mls/hr Q8HR IV 05/03/24 06:00 05/11/24 05:16 50 MLS/HR Potassium Chloride 40 meq DAILY PO 05/03/24 10:00 05/09/24 11:15 40 MEQ Diagnostic Test (Pha) 1 strip IQ4HR 05/03/24 00:00 05/11/24 08:51 1 STRIP Insulin Human Regular IQ4HR SC 05/03/24 00:00 05/11/24 08:53 2 UNITS Dextrose 50 ml UD PRN IV 05/02/24 22:30 Acetaminophen/ Hydrocodone Bitart 1 tab Q4HP PRN PO 05/02/24 22:30 05/11/24 07:53 1 TAB Ondansetron HCl 4 mg Q4HP PRN IV 05/02/24 22:30 Acetaminophen 650 mg Q6HP PRN PO 05/02/24 22:30 Chlordiazepoxide HCl 25 mg Q6HPRN PRN PO 05/02/24 22:30 Piperacillin Sod/ Tazobactam Sod 100 ml @ 25 mls/hr Q6H IV 05/06/24 17:00 05/11/24 06:21 25 MLS/HR Laboratory Results Laboratory Tests 05/10/24 12:31 Chemistry Test 05/10/24 12:31 Calcium Level 9.6 mg/dL (8.7-10.4) Microbiology Microbiology Date/Time Source Procedure Growth Status 05/02/24 21:50 Blood Blood Culture - Final NO GROWTH AFTER 5 DAYS OF INCUBATION. Complete Labs and/or images reviewed: Labs reviewed by me Assessment/Plan Assessment/Plan Right foot cellulitis Right 2nd toe osteomyelitis status post right partial 2nd toe amputation Uncontrolled diabetes mellitus Electrolyte imbalance Continuing current management. Continuing with IV antibiotic clindamycin and ceftriaxone. The MRI of the foot showed osteomyelitis Status post right partial 2nd toe amputation Continuing IV pain medication and [place] for pain control Discussed with patient regarding to plan of care Replace electrolytes as needed Waiting for tissue culture. Working with rn case manager hospice to see if I can set up wound care as outpatient for patient since he is homeless. Per , patient cannot have wound care clinic since he is homeless. I will see if I can discharge patient to SNF for wound care. Will DW ID specialist and surgeon. Per infectious disease specialist, patient can be d/c with PO meds. Waiting for culture. Plan discussed with: Patient Date of Service: May 11, 2024 Billing Provider: BRAD JUDGE MD Common Visit Codes: [id number] DISCH DAY >30min BRAD JUDGE MD May 11, 2024 10:55
--- NOTE | 2024-05-11 10:57 | DVHPN2 ---
Subjective The patient is seen and examined at bedside. Status post 2nd toe amputation. Patient complained of pain in the foot. No fever or chill overnight. Reviewed: Care Plan, H&P, Labs, Medications, Previous Orders, Radiology General: Per HPI Objective Vitals Vital Signs Date Time Temp Pulse Resp B/P (MAP) Pulse Ox O2 Delivery O2 Flow Rate FiO2 05/11/24 08:00 62 16 98 Room Air* 0 21 05/11/24 05:15 104/70 (81) 05/10/24 21:00 97.5 97.5 Intake/Output Intake and Output 05/11/24 07:00 Intake Total 3034 ml Output Total 4375 ml Balance -1341 ml Intake Oral 2634 ml IV Total 400 ml Output Urine Total 4375 ml General Appearance: Alert, Oriented X3, Cooperative Cardiovascular: Regular rate, Normal S1, Normal S2 Abdomen: Normal bowel sounds Medications Current Medications Medications Dose Ordered Sig/El Route Start Time Stop Time Status Last Admin Dose Admin Clindamycin Phosphate 50 ml @ 50 mls/hr Q8HR IV 05/03/24 06:00 05/11/24 05:16 50 MLS/HR Potassium Chloride 40 meq DAILY PO 05/03/24 10:00 05/09/24 11:15 40 MEQ Diagnostic Test (Pha) 1 strip IQ4HR 05/03/24 00:00 05/11/24 08:51 1 STRIP Insulin Human Regular IQ4HR SC 05/03/24 00:00 05/11/24 08:53 2 UNITS Dextrose 50 ml UD PRN IV 05/02/24 22:30 Acetaminophen/ Hydrocodone Bitart 1 tab Q4HP PRN PO 05/02/24 22:30 05/11/24 07:53 1 TAB Ondansetron HCl 4 mg Q4HP PRN IV 05/02/24 22:30 Acetaminophen 650 mg Q6HP PRN PO 05/02/24 22:30 Chlordiazepoxide HCl 25 mg Q6HPRN PRN PO 05/02/24 22:30 Piperacillin Sod/ Tazobactam Sod 100 ml @ 25 mls/hr Q6H IV 05/06/24 17:00 05/11/24 06:21 25 MLS/HR Laboratory Results Laboratory Tests 05/10/24 12:31 Chemistry Test 05/10/24 12:31 Calcium Level 9.6 mg/dL (8.7-10.4) Microbiology Microbiology Date/Time Source Procedure Growth Status 05/02/24 21:50 Blood Blood Culture - Final NO GROWTH AFTER 5 DAYS OF INCUBATION. Complete Assessment/Plan Assessment/Plan Right foot cellulitis Right 2nd toe osteomyelitis status post right partial 2nd toe amputation Uncontrolled diabetes mellitus Electrolyte imbalance Continuing current management. Continuing with IV antibiotic clindamycin and ceftriaxone. The MRI of the foot showed osteomyelitis Status post right partial 2nd toe amputation Continuing IV pain medication and [place] for pain control Discussed with patient regarding to plan of care Replace electrolytes as needed Waiting for tissue culture. My Orders Orders - BRAD JUDGE MD Procedure Category Date Status Time * Auto [employer]ision [employer] Instructor CONS 05/11/24 Verified Consult BRAD JUDGE MD May 11, 2024 10:57
[2024-05-11] MEDS ORDERED: DEXTROSE (50%) 50ML SYRG IV PRN (11:00)
[2024-05-11] MEDS: ACCU-CHEK COMFORT CURVE STRIP VI SCH (11:30)
[2024-05-11] MEDS: InsuLIN REG 1unit/0.01ml Soln (100units/ml) SC SCH (11:30)
--- NOTE | 2024-05-11 12:13 | DVHPN2 ---
Consult Progress Note Date Seen: May 10, 2024 Subjective Patient reports: Other (blood sugars overnight are high as 400 , not taking in any outside foods as we know , no toe pain ) Objective vital signs Vital Sign Date Time Temp Pulse Resp B/P (MAP) Pulse Ox O2 Delivery O2 Flow Rate FiO2 05/11/24 08:00 62 16 98 Room Air* 0 05/11/24 05:15 104/70 (81) 05/10/24 21:00 97.5 97.5 Total Intake and Output 05/10/24 05/10/24 05/11/24 15:00 23:00 07:00 Intake Total 1250 ml 1784 ml Output Total 1000 ml 3375 ml Balance 250 ml -1591 ml medications Current Medications Medications Dose Ordered Sig/El Route Start Time Stop Time Status Last Admin Dose Admin Clindamycin Phosphate 50 ml @ 50 mls/hr Q8HR IV 05/03/24 06:00 05/11/24 05:16 50 MLS/HR Acetaminophen/ Hydrocodone Bitart 1 tab Q4HP PRN PO 05/02/24 22:30 05/11/24 07:53 1 TAB Ondansetron HCl 4 mg Q4HP PRN IV 05/02/24 22:30 Acetaminophen 650 mg Q6HP PRN PO 05/02/24 22:30 Chlordiazepoxide HCl 25 mg Q6HPRN PRN PO 05/02/24 22:30 Piperacillin Sod/ Tazobactam Sod 100 ml @ 25 mls/hr Q6H IV 05/06/24 17:00 05/11/24 06:21 25 MLS/HR Diagnostic Test (Pha) 1 strip ACHS 05/11/24 11:30 Insulin Human Regular ACHS SC 05/11/24 11:30 Dextrose 50 ml UD PRN IV 05/11/24 11:00 Physical Exam: General: No acute distress. Neck: Supple. No masses. HEENT: PERRL. Normal lids and conjunctivae. Moist mucous membranes. - Oropharynx without lesions, exudates, or excessive erythema. - Normal appearance of the external aspects of the nose and ears. Heart: Regular rhythm, normal rate. No murmur. No lower extremity edema. Lungs: Normal respiratory effort. Clear to auscultation bilaterally. - No wheezes. No crackles. Abdomen: Soft. Non-tender. Non-distended. No masses or abdominal hernia. MSK: No digital cyanosis. Normal strength and tone in all 4 limbs. Skin: Warm and dry. Right foot with cellulitis, worse on the second toe with an ulcer on the plantar surface. Feet are cool to touch in peripheral surfaces. Neuro: Alert. No facial droop or slurred speech. Extra-ocular movements intact. - Sensation intact to soft touch in all 4 limbs. Psych: Appropriate mood. Full affect. - Oriented to person, place, time, and situation. laboratory and microbiology Laboratory Tests 05/10/24 12:31 Test 05/10/24 12:31 Range/Units Serum Glucose 225 H 74-106 mg/dL Problem List/Assessment/Plan Problems(with codes): (1) Osteomyelitis (2) Eloped from emergency department (3) Periorbital hematoma of right eye (4) Bilateral subdural hematomas (5) Subarachnoid bleed (6) DKA (diabetic ketoacidosis) (7) Head trauma Problem List/Assessment/Plan ASSESSMENT AND PLAN: ID Problem List: - Homelessness - Polysubstance abuse - Uncontrolled diabetes mellitus - Hypertension - Right foot second toe osteomyelitis - Right foot cellulitis - Right foot diabetic ulcer Assessment This is a 49 y.o. male with a past medical history of homelessness, diabetes mellitus, hypertension, and polysubstance abuse, who presents with a right foot infection. The patient reports that the right foot infection has been ongoing for the last two months, with worsening redness over the last month. He notes discharge from the bottom of the second toe and some necrotic features. There was no trauma to the area, and he is unsure how the ulcer initially developed. Podiatry evaluation by Dr. Enriquez noted: - Pulses are good bilaterally. - Feet are cool to touch in the peripheral surfaces. - Right second toe ulcer measuring 1 cm x 0.5 cm; hyperkeratotic, full thickness, bleeding with some purulent drainage. Laboratory studies revealed a WBC of 4.5, hemoglobin of 16.1, platelet count of 271, and an elevated blood glucose of 407 mg/dL. Imaging studies: - CT of the right foot showed a focal lytic lesion in the distal tip of the second distal phalanx, which could represent osteomyelitis. There is a linear lucency into the distal tibia and fibula, possibly sequelae of prior trauma of indeterminate chronicity. Diffuse subcutaneous edema is noted in the right foot. - MRI of the right foot shows diffuse subcutaneous soft tissue edema and swelling, most prominent at the second digit, which may represent cellulitis. There is diffuse T1 signal change associated with the distal phalanx of the second digit, suspicious for osteomyelitis. 05/08: patient underwent debridement of his right second toe , incision was made on the distal tip of the digit and was deep into the level of the bone and the digit was removed at the distal inter phalangeal joint level, the remaining bone appeared intact , no signs of osteomyelitis remaining. blood cultures are no growth to date 05/09: tolerating antibiotics 05/10: awaiting tissue culture results , white count is normal Plan: - Patient tolerated procedure well , recommend patient be discharged on 2 weeks oral clindamycin 300 milligrams x4 a day as well as oral levofloxacin 750 milligrams x1 a day - follow up on perative cultures - Continue broad-spectrum antibiotics (currently receiving IV clindamycin and IV Zosyn) white inpatient - close follow up with podiatry as well as outpaitent wound care to ensure wound continues to heal , would emphasize the importance with having close follow up with primary doctor for seeking imrpovement of blood glucose - Recommend go home with an insulin regimen , paatient states hes out of insulin - During operative debridement, collect deep tissue cultures of bone and infected deep tissue and muscle to guide antibiotic therapy. - Aim to transition to oral antibiotic therapy, presuming the patient can undergo wound care as an outpatient and achieve blood glucose control. - Address uncontrolled diabetes mellitus with endocrinology consult for glycemic management. - Provide social work consult to assist with homelessness and substance abuse resources. - Monitor vital signs and glucose levels closely. Isolation Precautions: Standard Assessment and plan were discussed with the patient as written above Plan is subject to change pending incorporation of new incoming information/diagnostics. Updates may be added as addendum at the bottom (OR TOP) of this note Thank you for this interesting consult. ID will continue to follow. Please contact Infectious Disease for any questions or concerns. May Mcdaniels M.D. [facility] Plan discussed with: Other Dietary Evaluation Review Comments: 1) Consider PACO 1 pkt BID for wound 2) Continue current plan of care Expected Outcomes/Goals: 1) Pt labs to improve 2) F/U in 3-5 days MAY MCDANIELS MD May 11, 2024 12:13
[2024-05-11 13:00] VITALS: BP 104/65; PULSE 58; RESP 18; TEMP 98; O2SAT 97
--- NOTE | 2024-05-11 13:00 | PEER ---
Peer to Peer Review Time DATE: 05/11/24 TIME: 13:00 Review and Recommendations: Spoke with Dr. Dominguez, approved for inpatient. JOANIE ORTEGA MD May 11, 2024 13:00
[2024-05-11 17:00] VITALS: BP 107/61; PULSE 64; RESP 19; TEMP 98; O2SAT 96
[2024-05-11 20:00] VITALS: PULSE 64; RESP 18; O2SAT 98
[2024-05-11 21:00] VITALS: BP 108/69; PULSE 64; RESP 18; TEMP 97.9; O2SAT 98
--- NOTE | 2024-05-11 22:13 | DVHPN2 ---
Consult Progress Note Date Seen: May 11, 2024 Subjective Patient reports: Other (having worsening pain in his great toe after amputation , wound appears to be undressed at the time and some exposure of surgical bed to air. ) Objective vital signs Vital Sign Date Time Temp Pulse Resp B/P (MAP) Pulse Ox O2 Delivery O2 Flow Rate FiO2 05/11/24 21:00 97.9 64 18 108/69 (82) 98 97.9 05/11/24 08:00 Room Air* 0 21 Total Intake and Output 05/10/24 05/10/24 05/11/24 15:00 23:00 07:00 Intake Total 1250 ml 1784 ml Output Total 1000 ml 3375 ml Balance 250 ml -1591 ml medications Current Medications Medications Dose Ordered Sig/El Route Start Time Stop Time Status Last Admin Dose Admin Clindamycin Phosphate 50 ml @ 50 mls/hr Q8HR IV 05/03/24 06:00 05/11/24 21:20 50 MLS/HR Acetaminophen/ Hydrocodone Bitart 1 tab Q4HP PRN PO 05/02/24 22:30 05/11/24 21:19 1 TAB Ondansetron HCl 4 mg Q4HP PRN IV 05/02/24 22:30 Acetaminophen 650 mg Q6HP PRN PO 05/02/24 22:30 Chlordiazepoxide HCl 25 mg Q6HPRN PRN PO 05/02/24 22:30 Diagnostic Test (Pha) 1 strip ACHS 05/11/24 11:30 05/11/24 21:21 1 STRIP Insulin Human Regular ACHS SC 05/11/24 11:30 05/11/24 21:33 6 UNITS Dextrose 50 ml UD PRN IV 05/11/24 11:00 Levofloxacin 750 mg DAILY PO 05/12/24 10:00 Physical Exam: General: No acute distress. Neck: Supple. No masses. HEENT: PERRL. Normal lids and conjunctivae. Moist mucous membranes. - Oropharynx without lesions, exudates, or excessive erythema. - Normal appearance of the external aspects of the nose and ears. Heart: Regular rhythm, normal rate. No murmur. No lower extremity edema. Lungs: Normal respiratory effort. Clear to auscultation bilaterally. - No wheezes. No crackles. Abdomen: Soft. Non-tender. Non-distended. No masses or abdominal hernia. MSK: No digital cyanosis. Normal strength and tone in all 4 limbs. Skin: Warm and dry. Right foot with cellulitis, worse on the second toe with an ulcer on the plantar surface. Feet are cool to touch in peripheral surfaces. Neuro: Alert. No facial droop or slurred speech. Extra-ocular movements intact. - Sensation intact to soft touch in all 4 limbs. Psych: Appropriate mood. Full affect. - Oriented to person, place, time, and situation. laboratory and microbiology Laboratory Tests 05/10/24 12:31 Test 05/10/24 12:31 Range/Units Serum Glucose 225 H 74-106 mg/dL Problem List/Assessment/Plan Problems(with codes): (1) Osteomyelitis (2) Eloped from emergency department (3) Periorbital hematoma of right eye (4) Bilateral subdural hematomas (5) Subarachnoid bleed (6) DKA (diabetic ketoacidosis) (7) Altered mental status Problem List/Assessment/Plan ASSESSMENT AND PLAN: ID Problem List: - Homelessness - Polysubstance abuse - Uncontrolled diabetes mellitus - Hypertension - Right foot second toe osteomyelitis - Right foot cellulitis - Right foot diabetic ulcer Assessment This is a 49 y.o. male with a past medical history of homelessness, diabetes mellitus, hypertension, and polysubstance abuse, who presents with a right foot infection. The patient reports that the right foot infection has been ongoing for the last two months, with worsening redness over the last month. He notes discharge from the bottom of the second toe and some necrotic features. There was no trauma to the area, and he is unsure how the ulcer initially developed. Podiatry evaluation by Dr. Enriquez noted: - Pulses are good bilaterally. - Feet are cool to touch in the peripheral surfaces. - Right second toe ulcer measuring 1 cm x 0.5 cm; hyperkeratotic, full thickness, bleeding with some purulent drainage. Laboratory studies revealed a WBC of 4.5, hemoglobin of 16.1, platelet count of 271, and an elevated blood glucose of 407 mg/dL. Imaging studies: - CT of the right foot showed a focal lytic lesion in the distal tip of the second distal phalanx, which could represent osteomyelitis. There is a linear lucency into the distal tibia and fibula, possibly sequelae of prior trauma of indeterminate chronicity. Diffuse subcutaneous edema is noted in the right foot. - MRI of the right foot shows diffuse subcutaneous soft tissue edema and swelling, most prominent at the second digit, which may represent cellulitis. There is diffuse T1 signal change associated with the distal phalanx of the second digit, suspicious for osteomyelitis. 05/08: patient underwent debridement of his right second toe , incision was made on the distal tip of the digit and was deep into the level of the bone and the digit was removed at the distal inter phalangeal joint level, the remaining bone appeared intact , no signs of osteomyelitis remaining. blood cultures are no growth to date 05/09: tolerating antibiotics 05/10: awaiting tissue culture results , white count is normal 05/11: Blood cultures are improved Plan: - Continue broad-spectrum antibiotics (currently receiving IV clindamycin and IV Ceftriaxone) while inpatient - Agree with wound care clinic as outpatient as well as for patients homelessness status - Patient tolerated procedure well , recommend patient be discharged on 2 weeks oral clindamycin 300 milligrams x4 a day as well as oral levofloxacin 750 milligrams x1 a day - follow up on operative cultures - close follow up with podiatry as well as outpatient wound care to ensure wound continues to heal , would emphasize the importance with having close follow up with primary doctor for seeking improvement of blood glucose - Recommend go home with an insulin regimen , patient states hes out of insulin - During operative debridement, collect deep tissue cultures of bone and infected deep tissue and muscle to guide antibiotic therapy. - Aim to transition to oral antibiotic therapy, presuming the patient can undergo wound care as an outpatient and achieve blood glucose control. - Address uncontrolled diabetes mellitus with endocrinology consult for glycemic management. - Provide social work consult to assist with homelessness and substance abuse resources. - Monitor vital signs and glucose levels closely. Isolation Precautions: Standard Assessment and plan were discussed with the patient as written above Plan is subject to change pending incorporation of new incoming information/diagnostics. Updates may be added as addendum at the bottom (OR TOP) of this note Thank you for this interesting consult. ID will continue to follow. Please contact Infectious Disease for any questions or concerns. Yue [facility] Plan discussed with: Other Dietary Evaluation Review Comments: 1) Consider PACO 1 pkt BID for wound 2) Continue current plan of care Expected Outcomes/Goals: 1) Pt labs to improve 2) F/U in 3-5 days MAY MCDANIELS MD May 11, 2024 22:13
[2024-05-12 01:00] VITALS: BP 117/75; PULSE 62; RESP 19; TEMP 97.9; O2SAT 100
[2024-05-12 05:00] VITALS: BP 115/71; PULSE 61; RESP 19; TEMP 98; O2SAT 97
[2024-05-12] MEDS: levoFLOXacin 250 MG TAB PO SCH (08:42)
[2024-05-12] MEDS: ACETAMINOPHEN 325 MG TAB PO PRN (08:43)
[2024-05-12 08:44] VITALS: BP 124/70; PULSE 64; RESP 18; TEMP 97.9; O2SAT 98
[2024-05-12 13:00] VITALS: BP 108/60; PULSE 60; RESP 16; TEMP 97.9; O2SAT 97
--- NOTE | 2024-05-12 13:42 | DVHPN2 ---
Subjective The patient is seen and examined at bedside. Status post 2nd toe amputation. Patient complained of pain in the foot. No fever or chill overnight. Reviewed: Care Plan, H&P, Labs, Medications, Previous Orders, Radiology Changes from previous H/P or p: No Changes General: Per HPI Objective Vitals Vital Signs Date Time Temp Pulse Resp B/P (MAP) Pulse Ox O2 Delivery O2 Flow Rate FiO2 05/12/24 08:44 97.9 64 18 124/70 (88) 98 97.9 05/12/24 08:00 Room Air* 0 21 Intake/Output Intake and Output 05/12/24 07:00 Intake Total 1580 ml Output Total 3000 ml Balance -1420 ml Intake Oral 1405 ml IV Total 175 ml Output Urine Total 3000 ml General Appearance: Alert, Oriented X3, Cooperative HEENT: Atraumatic, PERRLA, EOMI, Mucous membr. moist/pink Cardiovascular: Regular rate, Normal S1, Normal S2 Abdomen: Normal bowel sounds Neuro: Cranial nerves 3-12 NL Psych/Mental Status: Mental status NL Medications Current Medications Medications Dose Ordered Sig/El Route Start Time Stop Time Status Last Admin Dose Admin Clindamycin Phosphate 50 ml @ 50 mls/hr Q8HR IV 05/03/24 06:00 05/12/24 05:40 50 MLS/HR Ondansetron HCl 4 mg Q4HP PRN IV 05/02/24 22:30 Acetaminophen 650 mg Q6HP PRN PO 05/02/24 22:30 05/12/24 08:43 650 MG Chlordiazepoxide HCl 25 mg Q6HPRN PRN PO 05/02/24 22:30 Diagnostic Test (Pha) 1 strip ACHS 05/11/24 11:30 05/12/24 11:18 1 STRIP Insulin Human Regular ACHS SC 05/11/24 11:30 05/12/24 11:18 4 UNITS Dextrose 50 ml UD PRN IV 05/11/24 11:00 Levofloxacin 750 mg DAILY PO 05/12/24 10:00 05/12/24 08:42 750 MG Laboratory Results Laboratory Tests 05/10/24 12:31 Microbiology Microbiology Date/Time Source Procedure Growth Status 05/02/24 21:50 Blood Blood Culture - Final NO GROWTH AFTER 5 DAYS OF INCUBATION. Complete Labs and/or images reviewed: Labs reviewed by me Assessment/Plan Assessment/Plan Right foot cellulitis Right 2nd toe osteomyelitis status post right partial 2nd toe amputation Uncontrolled diabetes mellitus Electrolyte imbalance Continuing current management. Continuing with IV antibiotic clindamycin and ceftriaxone. The MRI of the foot showed osteomyelitis Status post right partial 2nd toe amputation Continuing IV pain medication and [place] for pain control Discussed with patient regarding to plan of care Replace electrolytes as needed Waiting for tissue culture. Working with onsite case manager to see if I can set up wound care as outpatient for patient since he is homeless. Per CM, patient cannot have wound care clinic since he is homeless [facility] ID specialist and surgeon. Per infectious disease specialist, patient can be d/c with PO meds. Waiting for culture. Patient need intense wound care to make sure his wound heal appropriately. DC to SNF for wound care. Plan discussed with: Patient Date of Service: May 12, 2024 Billing Provider: BRAD JUDGE MD Common Visit Codes: [id number] INP/OBS CARE(HIGH) BRAD JUDGE MD May 12, 2024 13:42
[2024-05-12] MEDS: HYDROcodone-ACET 5/325MG TAB PO PRN (16:51)
[2024-05-12 16:53] VITALS: BP 116/78; PULSE 61; RESP 17; TEMP 97.5; O2SAT 100
[2024-05-12] MEDS ORDERED: VANCOMYCIN PER PHARMACY 0 MG IV SCH (18:30)
[2024-05-12] MEDS: VANCOMYCIN 1GM/200ML PREMIX 200 ML IV SCH (19:55)
[2024-05-12 21:00] VITALS: BP 100/64; PULSE 66; RESP 18; TEMP 99; O2SAT 98
--- NOTE | 2024-05-12 22:05 | DVHPN2 ---
Consult Progress Note Date Seen: May 12, 2024 Subjective Patient reports: Other (unable to get outpatient wound care because hes homeless, complaining about foot pain ) Objective vital signs Vital Sign Date Time Temp Pulse Resp B/P (MAP) Pulse Ox O2 Delivery O2 Flow Rate FiO2 05/12/24 21:00 99.0 66 18 100/64 (76) 98 99.0 05/12/24 20:00 Room Air* 0 21 Total Intake and Output 05/11/24 05/11/24 05/12/24 15:00 23:00 07:00 Intake Total 475 ml 1105 ml Output Total 600 ml 2400 ml Balance -125 ml -1295 ml medications Current Medications Medications Dose Ordered Sig/El Route Start Time Stop Time Status Last Admin Dose Admin Ondansetron HCl 4 mg Q4HP PRN IV 05/02/24 22:30 Acetaminophen 650 mg Q6HP PRN PO 05/02/24 22:30 05/12/24 08:43 650 MG Chlordiazepoxide HCl 25 mg Q6HPRN PRN PO 05/02/24 22:30 Diagnostic Test (Pha) 1 strip ACHS 05/11/24 11:30 05/12/24 17:00 1 STRIP Insulin Human Regular ACHS SC 05/11/24 11:30 05/12/24 16:54 4 UNITS Dextrose 50 ml UD PRN IV 05/11/24 11:00 Levofloxacin 750 mg DAILY PO 05/12/24 10:00 05/12/24 08:42 750 MG Acetaminophen/ Hydrocodone Bitart 1 tab Q4HPRN PRN PO 05/12/24 15:15 05/12/24 16:51 1 TAB Vancomycin HCl 0 ml @ 0 mls/hr UD IV 05/12/24 18:30 Physical Exam: General: No acute distress. Neck: Supple. No masses. HEENT: PERRL. Normal lids and conjunctivae. Moist mucous membranes. - Oropharynx without lesions, exudates, or excessive erythema. - Normal appearance of the external aspects of the nose and ears. Heart: Regular rhythm, normal rate. No murmur. No lower extremity edema. Lungs: Normal respiratory effort. Clear to auscultation bilaterally. - No wheezes. No crackles. Abdomen: Soft. Non-tender. Non-distended. No masses or abdominal hernia. MSK: No digital cyanosis. Normal strength and tone in all 4 limbs. Skin: Warm and dry. Right foot with cellulitis, worse on the second toe with an ulcer on the plantar surface. Feet are cool to touch in peripheral surfaces. Neuro: Alert. No facial droop or slurred speech. Extra-ocular movements intact. - Sensation intact to soft touch in all 4 limbs. Psych: Appropriate mood. Full affect. - Oriented to person, place, time, and situation. laboratory and microbiology Laboratory Tests 05/10/24 12:31 Test 05/10/24 12:31 Range/Units Serum Glucose 225 H 74-106 mg/dL Problem List/Assessment/Plan Problems(with codes): (1) Osteomyelitis (2) Eloped from emergency department (3) Periorbital hematoma of right eye (4) Bilateral subdural hematomas (5) Subarachnoid bleed (6) DKA (diabetic ketoacidosis) Problem List/Assessment/Plan ASSESSMENT AND PLAN: ID Problem List: - Homelessness - Polysubstance abuse - Uncontrolled diabetes mellitus - Hypertension - Right foot second toe osteomyelitis - Right foot cellulitis - Right foot diabetic ulcer Assessment This is a 49 y.o. male with a past medical history of homelessness, diabetes mellitus, hypertension, and polysubstance abuse, who presents with a right foot infection. The patient reports that the right foot infection has been ongoing for the last two months, with worsening redness over the last month. He notes discharge from the bottom of the second toe and some necrotic features. There was no trauma to the area, and he is unsure how the ulcer initially developed. Podiatry evaluation by Dr. Enriquez noted: - Pulses are good bilaterally. - Feet are cool to touch in the peripheral surfaces. - Right second toe ulcer measuring 1 cm x 0.5 cm; hyperkeratotic, full thickness, bleeding with some purulent drainage. Laboratory studies revealed a WBC of 4.5, hemoglobin of 16.1, platelet count of 271, and an elevated blood glucose of 407 mg/dL. Imaging studies: - CT of the right foot showed a focal lytic lesion in the distal tip of the second distal phalanx, which could represent osteomyelitis. There is a linear lucency into the distal tibia and fibula, possibly sequelae of prior trauma of indeterminate chronicity. Diffuse subcutaneous edema is noted in the right foot. - MRI of the right foot shows diffuse subcutaneous soft tissue edema and swelling, most prominent at the second digit, which may represent cellulitis. There is diffuse T1 signal change associated with the distal phalanx of the second digit, suspicious for osteomyelitis. 05/08: patient underwent debridement of his right second toe , incision was made on the distal tip of the digit and was deep into the level of the bone and the digit was removed at the distal inter phalangeal joint level, the remaining bone appeared intact , no signs of osteomyelitis remaining. blood cultures are no growth to date 05/09: tolerating antibiotics 05/10: awaiting tissue culture results , white count is normal 05/11: Blood cultures are improved 05/12: white count is normal , blood sugar is in the 200s Plan: - if patient is to go to [facility] then preference is patient continue IV antibiotics for treatment of osteomyelitis - Continue broad-spectrum antibiotics (currently receiving IV vancomycin and IV Ceftriaxone) while inpatient for 6 weeks - stop clindamycin , start vancomycin - follow up on operative cultures - close follow up with podiatry as well as outpatient wound care to ensure wound continues to heal , would emphasize the importance with having close follow up with primary doctor for seeking improvement of blood glucose - Recommend go home with an insulin regimen , patient states hes out of insulin - Address uncontrolled diabetes mellitus with endocrinology consult for glycemic management. - Provide social work consult to assist with homelessness and substance abuse resources. - Monitor vital signs and glucose levels closely. Isolation Precautions: Standard Assessment and plan were discussed with the patient as written above Plan is subject to change pending incorporation of new incoming information/diagnostics. Updates may be added as addendum at the bottom (OR TOP) of this note Thank you for this interesting consult. ID will continue to follow. Please contact Infectious Disease for any questions or concerns. May Mcdaniels M.D. [facility] Plan discussed with: Other Dietary Evaluation Review Comments: 1) Consider PACO 1 pkt BID for wound 2) Continue current plan of care Expected Outcomes/Goals: 1) Pt labs to improve 2) F/U in 3-5 days MAY MCDANIELS MD May 12, 2024 22:05
[2024-05-13] VITALS (7 sets, daily range): BP systolic 105–116; BP diastolic 63–84; PULSE 52–69; RESP 16–20; TEMP 97.4–99; O2SAT 96–100
--- NOTE | 2024-05-13 10:00 | DVHPN2 ---
Subjective The patient is seen and examined at bedside. Status post 2nd toe amputation. Patient complained of pain in the foot. No fever or chill overnight. Reviewed: Care Plan, H&P, Labs, Medications, Previous Orders, Radiology Changes from previous H/P or p: No Changes General: Per HPI Objective Vitals Vital Signs Date Time Temp Pulse Resp B/P (MAP) Pulse Ox O2 Delivery O2 Flow Rate FiO2 05/13/24 08:28 98.0 52 17 113/72 (86) 96 98.0 05/12/24 20:00 Room Air* 0 21 Intake/Output Intake and Output 05/13/24 07:00 Intake Total 2370 ml Output Total 2000 ml Balance 370 ml Intake Oral 2320 ml IV Total 50 ml Output Urine Total 2000 ml # Voids 9 # Bowel Movements 1 General Appearance: Alert, Oriented X3, Cooperative HEENT: Atraumatic, PERRLA, EOMI, Mucous membr. moist/pink Cardiovascular: Regular rate, Normal S1, Normal S2 Abdomen: Normal bowel sounds Neuro: Cranial nerves 3-12 NL Psych/Mental Status: Mental status NL Medications Current Medications Medications Dose Ordered Sig/El Route Start Time Stop Time Status Last Admin Dose Admin Ondansetron HCl 4 mg Q4HP PRN IV 05/02/24 22:30 Acetaminophen 650 mg Q6HP PRN PO 05/02/24 22:30 05/12/24 08:43 650 MG Chlordiazepoxide HCl 25 mg Q6HPRN PRN PO 05/02/24 22:30 Diagnostic Test (Pha) 1 strip ACHS 05/11/24 11:30 05/13/24 06:10 1 STRIP Insulin Human Regular ACHS SC 05/11/24 11:30 05/13/24 06:11 6 UNITS Dextrose 50 ml UD PRN IV 05/11/24 11:00 Levofloxacin 750 mg DAILY PO 05/12/24 10:00 05/13/24 09:17 750 MG Acetaminophen/ Hydrocodone Bitart 1 tab Q4HPRN PRN PO 05/12/24 15:15 05/13/24 09:17 1 TAB Vancomycin HCl 0 ml @ 0 mls/hr UD IV 05/12/24 18:30 Vancomycin HCl 250 ml @ 200 mls/hr Q8H IV 05/13/24 09:00 Laboratory Results Laboratory Tests 05/10/24 12:31 Microbiology Microbiology Date/Time Source Procedure Growth Status 05/02/24 21:50 Blood Blood Culture - Final NO GROWTH AFTER 5 DAYS OF INCUBATION. Complete Labs and/or images reviewed: Labs reviewed by me Assessment/Plan Assessment/Plan Right foot cellulitis Right 2nd toe osteomyelitis status post right partial 2nd toe amputation Uncontrolled diabetes mellitus Electrolyte imbalance Continuing current management. Continuing with IV antibiotic clindamycin and ceftriaxone. The MRI of the foot showed osteomyelitis Status post right partial 2nd toe amputation Continuing IV pain medication and [place] for pain control Discussed with patient regarding to plan of care Replace electrolytes as needed Waiting for tissue culture. Working with counter caser to see if I can set up wound care as outpatient for patient since he is homeless. Per CM, patient cannot have wound care clinic since he is homeless [facility] ID specialist and surgeon. Per infectious disease specialist, patient can be d/c with PO meds. Waiting for culture. Patient need intense wound care to make sure his wound heal appropriately. DC to SNF for wound care. Waiting for CM to arrange SNF. Plan discussed with: Patient My Orders Orders - BRAD JUDGE MD Procedure Category Date Status Time * [employer] Consultant CONS 05/12/24 Transmitted Consult Hydrocodone-Acet PHA 05/12/24 In Process 5/325mg Tab ([place] 15:15 Pt Request For Service PT 05/12/24 Logged 17:15 Date of Service: May 13, 2024 Billing Provider: BRAD JUDGE MD Common Visit Codes: [id number] INP/OBS CARE(HIGH) BRAD JUDGE MD May 13, 2024 10:00
[2024-05-13] MEDS: VANCOMYCIN 1.25GM/250ML 250 ML IV SCH (10:04)
--- NOTE | 2024-05-13 21:51 | DVHPN2 ---
Consult Progress Note Date Seen: May 13, 2024 Subjective Patient reports: Feels better (blood sugars remain high, improved from adjustment of pain meds ) Objective vital signs Vital Sign Date Time Temp Pulse Resp B/P (MAP) Pulse Ox O2 Delivery O2 Flow Rate FiO2 05/13/24 19:59 Room Air* 0 21 05/13/24 17:32 97.4 58 16 110/76 (87) 97 97.4 Total Intake and Output 05/12/24 05/12/24 05/13/24 15:00 23:00 07:00 Intake Total 50 ml 1320 ml 1000 ml Output Total 2000 ml Balance 50 ml 1320 ml -1000 ml medications Current Medications Medications Dose Ordered Sig/El Route Start Time Stop Time Status Last Admin Dose Admin Ondansetron HCl 4 mg Q4HP PRN IV 05/02/24 22:30 Acetaminophen 650 mg Q6HP PRN PO 05/02/24 22:30 05/12/24 08:43 650 MG Chlordiazepoxide HCl 25 mg Q6HPRN PRN PO 05/02/24 22:30 Diagnostic Test (Pha) 1 strip ACHS 05/11/24 11:30 05/13/24 17:37 1 STRIP Insulin Human Regular ACHS SC 05/11/24 11:30 05/13/24 18:05 4 UNITS Dextrose 50 ml UD PRN IV 05/11/24 11:00 Levofloxacin 750 mg DAILY PO 05/12/24 10:00 05/13/24 09:17 750 MG Acetaminophen/ Hydrocodone Bitart 1 tab Q4HPRN PRN PO 05/12/24 15:15 05/13/24 13:59 1 TAB Vancomycin HCl 0 ml @ 0 mls/hr UD IV 05/12/24 18:30 Vancomycin HCl 250 ml @ 200 mls/hr Q8H IV 05/13/24 09:00 05/13/24 17:36 200 MLS/HR Physical Exam: General: No acute distress. Neck: Supple. No masses. HEENT: PERRL. Normal lids and conjunctivae. Moist mucous membranes. - Oropharynx without lesions, exudates, or excessive erythema. - Normal appearance of the external aspects of the nose and ears. Heart: Regular rhythm, normal rate. No murmur. No lower extremity edema. Lungs: Normal respiratory effort. Clear to auscultation bilaterally. - No wheezes. No crackles. Abdomen: Soft. Non-tender. Non-distended. No masses or abdominal hernia. MSK: No digital cyanosis. Normal strength and tone in all 4 limbs. Skin: Warm and dry. Right foot with cellulitis, worse on the second toe with an ulcer on the plantar surface. Feet are cool to touch in peripheral surfaces. Neuro: Alert. No facial droop or slurred speech. Extra-ocular movements intact. - Sensation intact to soft touch in all 4 limbs. Psych: Appropriate mood. Full affect. - Oriented to person, place, time, and situation. laboratory and microbiology Laboratory Tests 05/13/24 10:21 05/10/24 12:31 Test 05/10/24 12:31 Range/Units Serum Glucose 225 H 74-106 mg/dL Problem List/Assessment/Plan Problems(with codes): (1) Homeless (2) Polysubstance abuse (3) Hypertension (4) Uncontrolled diabetes mellitus (5) Foot osteomyelitis, right (6) Diabetic ulcer of right foot (7) Cellulitis of right foot Problem List/Assessment/Plan ASSESSMENT AND PLAN: ID Problem List: - Homelessness - Polysubstance abuse - Uncontrolled diabetes mellitus - Hypertension - Right foot second toe osteomyelitis - Right foot cellulitis - Right foot diabetic ulcer Assessment This is a 49 y.o. male with a past medical history of homelessness, diabetes mellitus, hypertension, and polysubstance abuse, who presents with a right foot infection. The patient reports that the right foot infection has been ongoing for the last two months, with worsening redness over the last month. He notes discharge from the bottom of the second toe and some necrotic features. There was no trauma to the area, and he is unsure how the ulcer initially developed. Podiatry evaluation by Dr. Enriquez noted: - Pulses are good bilaterally. - Feet are cool to touch in the peripheral surfaces. - Right second toe ulcer measuring 1 cm x 0.5 cm; hyperkeratotic, full thickness, bleeding with some purulent drainage. Laboratory studies revealed a WBC of 4.5, hemoglobin of 16.1, platelet count of 271, and an elevated blood glucose of 407 mg/dL. Imaging studies: - CT of the right foot showed a focal lytic lesion in the distal tip of the second distal phalanx, which could represent osteomyelitis. There is a linear lucency into the distal tibia and fibula, possibly sequelae of prior trauma of indeterminate chronicity. Diffuse subcutaneous edema is noted in the right foot. - MRI of the right foot shows diffuse subcutaneous soft tissue edema and swelling, most prominent at the second digit, which may represent cellulitis. There is diffuse T1 signal change associated with the distal phalanx of the second digit, suspicious for osteomyelitis. 05/08: patient underwent debridement of his right second toe , incision was made on the distal tip of the digit and was deep into the level of the bone and the digit was removed at the distal inter phalangeal joint level, the remaining bone appeared intact , no signs of osteomyelitis remaining. blood cultures are no growth to date 05/09: tolerating antibiotics 05/10: awaiting tissue culture results , white count is normal 05/11: Blood cultures are improved 05/12: white count is normal , blood sugar is in the 200s Plan: - if patient is to go to [facility] then preference is patient continue IV antibiotics for treatment of osteomyelitis - Continue broad-spectrum antibiotics (currently receiving IV vancomycin and IV Ceftriaxone) while inpatient for 6 weeks , tentatively 06/11/24 - stop clindamycin , start vancomycin - follow up on operative cultures - close follow up with podiatry as well as outpatient wound care to ensure wound continues to heal , would emphasize the importance with having close follow up with primary doctor for seeking improvement of blood glucose - Recommend go home with an insulin regimen , patient states hes out of insulin - Address uncontrolled diabetes mellitus with endocrinology consult for glycemic management. - Provide social work consult to assist with homelessness and substance abuse resources. - Monitor vital signs and glucose levels closely. Isolation Precautions: Standard Assessment and plan were discussed with the patient as written above Plan is subject to change pending incorporation of new incoming information/diagnostics. Updates may be added as addendum at the bottom (OR TOP) of this note Thank you for this interesting consult. ID will continue to follow. Please contact Infectious Disease for any questions or concerns. May Mcdaniels M.D. [facility] Plan discussed with: Other Dietary Evaluation Review Comments: 1) Consider PACO 1 pkt BID for wound 2) Continue current plan of care Expected Outcomes/Goals: 1) Pt labs to improve 2) F/U in 3-5 days MAY MCDANIELS MD May 13, 2024 21:51
[2024-05-14] VITALS (8 sets, daily range): BP systolic 89–133; BP diastolic 52–82; PULSE 59–66; RESP 16–19; TEMP 97–98; O2SAT 96–98
--- NOTE | 2024-05-14 16:52 | DVHPN2 ---
Consult Progress Note Date Seen: May 14, 2024 Subjective Patient reports: Feels better (having no signs of sweating or agitation typically associated with alcohol withdrawl ) Objective vital signs Vital Sign Date Time Temp Pulse Resp B/P (MAP) Pulse Ox O2 Delivery O2 Flow Rate FiO2 05/14/24 11:44 97.0 61 16 94/54 (67) 98 97.0 05/14/24 08:00 Room Air* 0 21 Total Intake and Output 05/13/24 05/13/24 05/14/24 15:00 23:00 07:00 Intake Total 250 ml 1200 ml 1150 ml Output Total 1000 ml 2550 ml Balance 250 ml 200 ml -1400 ml medications Current Medications Medications Dose Ordered Sig/El Route Start Time Stop Time Status Last Admin Dose Admin Ondansetron HCl 4 mg Q4HP PRN IV 05/02/24 22:30 Acetaminophen 650 mg Q6HP PRN PO 05/02/24 22:30 05/12/24 08:43 650 MG Chlordiazepoxide HCl 25 mg Q6HPRN PRN PO 05/02/24 22:30 Diagnostic Test (Pha) 1 strip ACHS 05/11/24 11:30 05/14/24 11:53 1 STRIP Insulin Human Regular ACHS SC 05/11/24 11:30 05/14/24 12:23 8 UNITS Dextrose 50 ml UD PRN IV 05/11/24 11:00 Levofloxacin 750 mg DAILY PO 05/12/24 10:00 05/14/24 09:01 750 MG Acetaminophen/ Hydrocodone Bitart 1 tab Q4HPRN PRN PO 05/12/24 15:15 05/14/24 11:50 1 TAB Vancomycin HCl 0 ml @ 0 mls/hr UD IV 05/12/24 18:30 Vancomycin HCl 250 ml @ 200 mls/hr Q8H IV 05/13/24 09:00 05/14/24 09:01 200 MLS/HR Physical Exam: General: No acute distress. Neck: Supple. No masses. HEENT: PERRL. Normal lids and conjunctivae. Moist mucous membranes. - Oropharynx without lesions, exudates, or excessive erythema. - Normal appearance of the external aspects of the nose and ears. Heart: Regular rhythm, normal rate. No murmur. No lower extremity edema. Lungs: Normal respiratory effort. Clear to auscultation bilaterally. - No wheezes. No crackles. Abdomen: Soft. Non-tender. Non-distended. No masses or abdominal hernia. MSK: No digital cyanosis. Normal strength and tone in all 4 limbs. Skin: Warm and dry. Right foot with cellulitis, worse on the second toe with an ulcer on the plantar surface. Feet are cool to touch in peripheral surfaces. Neuro: Alert. No facial droop or slurred speech. Extra-ocular movements intact. - Sensation intact to soft touch in all 4 limbs. Psych: Appropriate mood. Full affect. - Oriented to person, place, time, and situation. laboratory and microbiology Laboratory Tests 05/14/24 05:15 05/10/24 12:31 Test 05/10/24 12:31 Range/Units Serum Glucose 225 H 74-106 mg/dL Problem List/Assessment/Plan Problems(with codes): (1) Diabetic ulcer of right foot (2) Cellulitis of right foot (3) Foot osteomyelitis, right (4) Hypertension (5) Polysubstance abuse (6) Osteomyelitis (7) Homeless Problem List/Assessment/Plan ASSESSMENT AND PLAN: ID Problem List: - Homelessness - Polysubstance abuse - Uncontrolled diabetes mellitus - Hypertension - Right foot second toe osteomyelitis - Right foot cellulitis - Right foot diabetic ulcer Assessment This is a 49 y.o. male with a past medical history of homelessness, diabetes mellitus, hypertension, and polysubstance abuse, who presents with a right foot infection. The patient reports that the right foot infection has been ongoing for the last two months, with worsening redness over the last month. He notes discharge from the bottom of the second toe and some necrotic features. There was no trauma to the area, and he is unsure how the ulcer initially developed. Podiatry evaluation by Dr. Enriquez noted: - Pulses are good bilaterally. - Feet are cool to touch in the peripheral surfaces. - Right second toe ulcer measuring 1 cm x 0.5 cm; hyperkeratotic, full thickness, bleeding with some purulent drainage. Laboratory studies revealed a WBC of 4.5, hemoglobin of 16.1, platelet count of 271, and an elevated blood glucose of 407 mg/dL. Imaging studies: - CT of the right foot showed a focal lytic lesion in the distal tip of the second distal phalanx, which could represent osteomyelitis. There is a linear lucency into the distal tibia and fibula, possibly sequelae of prior trauma of indeterminate chronicity. Diffuse subcutaneous edema is noted in the right foot. - MRI of the right foot shows diffuse subcutaneous soft tissue edema and swelling, most prominent at the second digit, which may represent cellulitis. There is diffuse T1 signal change associated with the distal phalanx of the second digit, suspicious for osteomyelitis. 05/08: patient underwent debridement of his right second toe , incision was made on the distal tip of the digit and was deep into the level of the bone and the digit was removed at the distal inter phalangeal joint level, the remaining bone appeared intact , no signs of osteomyelitis remaining. blood cultures are no growth to date 05/09: tolerating antibiotics 05/10: awaiting tissue culture results , white count is normal 05/11: Blood cultures are improved 05/12: white count is normal , blood sugar is in the 200s 05/14: bllod sugars remain elevated Plan: - consider piccline placement once patient has been placed at SNF - keep blood sugars under 180 to optimize wound healing - if patient is to go to [facility] then preference is patient continue IV antibiotics for treatment of osteomyelitis - Continue broad-spectrum antibiotics (currently receiving IV vancomycin and IV Ceftriaxone) while inpatient for 6 weeks , tentatively 06/11/24 - follow up on operative cultures - close follow up with podiatry as well as outpatient wound care to ensure wound continues to heal , would emphasize the importance with having close follow up with primary doctor for seeking improvement of blood glucose - Recommend go home with an insulin regimen , patient states hes out of insulin - Address uncontrolled diabetes mellitus with endocrinology consult for glycemic management. - Provide social work consult to assist with homelessness and substance abuse resources. - Monitor vital signs and glucose levels closely. Isolation Precautions: Standard Assessment and plan were discussed with the patient as written above Plan is subject to change pending incorporation of new incoming information/diagnostics. Updates may be added as addendum at the bottom (OR TOP) of this note Thank you for this interesting consult. ID will continue to follow. Please contact Infectious Disease for any questions or concerns. May Mcdaniels M.D. [facility] Plan discussed with: Other Dietary Evaluation Review Comments: 1) Consider PACO 1 pkt BID for wound 2) Continue current plan of care Expected Outcomes/Goals: 1) Pt labs to improve 2) F/U in 3-5 days MAY MCDANIELS MD May 14, 2024 16:52
[2024-05-15 01:00] VITALS: BP_SYST 109; BP_SYST 141; BP_DIAS 68; BP_DIAS 85; PULSE 63; PULSE 72; RESP 20; TEMP 97.7; TEMP 98.5; O2SAT 97
[2024-05-15] MEDS ORDERED: ALBUMIN 5% 250 ML IV ONE (03:28)
[2024-05-15 05:00] VITALS: BP 116/77; PULSE 60; RESP 19; TEMP 98; O2SAT 98
[2024-05-15 08:00] VITALS: PULSE 66
[2024-05-15 09:00] VITALS: BP 118/77; PULSE 57; RESP 16; TEMP 97.5; O2SAT 98
[2024-05-15 09:17] LABS: Basophils # (auto) 0 10 ^3/uL (0-0.2); Basophils % (auto) 0.7 % (0.0-2.0); Eosinophils # (auto) 0.1 10 ^3/uL (0-0.8); Eosinophils % (auto) 2.1 % (0.0-7.0); Hematocrit 46.4 % (41.0-53.0); Hemoglobin 15.8 g/dL (13.5-17.5); Lymphocytes # (auto) 1.8 10 ^3/uL (0.4-5.4); Lymphocytes % (auto) 37.8 % (10.0-50.0); Mean Corpuscular Hemoglobin 31.3 pg (28.0-32.0); Mean Corpuscular Hgb Conc. 34.1 g/dL (32.0-36.0); Mean Corpuscular Volume 91.8 fL (80.0-100.0); Monocytes # (auto) 0.3 10 ^3/uL (0-1.3); Monocytes % (auto) 6.8 % (0.0-12.0); Neutrophils # (auto) 2.5 10 ^3/uL (1.6-8.6); Neutrophils % (auto) 52.6 % (37.0-80.0); Nucleated Red Blood Cells % 1.1 %; Platelet Count (auto) 277 10^3/uL (140-450); Red Blood Cells 5.06 10^6/uL (4.5-5.90); Red Cell Distribution Width 13.1 % (11.8-14.3); White Blood Cell 4.8 10^3/uL (4.4-10.8)
--- NOTE | 2024-05-15 11:11 | DVHPN2 ---
Subjective The patient is seen and examined at bedside. Status post 2nd toe amputation. Patient complained of pain in the foot. No fever or chill overnight. Reviewed: Care Plan, H&P, Labs, Medications, Previous Orders, Radiology Changes from previous H/P or p: No Changes General: Per HPI Objective Vitals Vital Signs Date Time Temp Pulse Resp B/P (MAP) Pulse Ox O2 Delivery O2 Flow Rate FiO2 05/14/24 09:00 97.5 57 16 118/77 (91) 98 97.5 05/13/24 20:00 Room Air* 0 21 Intake/Output Intake and Output 05/15/24 07:00 Intake Total 1320 ml Output Total 1400 ml Balance -80 ml Intake Oral 1070 ml IV Total 250 ml Output Urine Total 1400 ml # Bowel Movements 1 General Appearance: Alert, Oriented X3, Cooperative HEENT: Atraumatic, PERRLA, EOMI, Mucous membr. moist/pink Cardiovascular: Regular rate, Normal S1, Normal S2 Abdomen: Normal bowel sounds Neuro: Cranial nerves 3-12 NL Psych/Mental Status: Mental status NL Medications Current Medications Medications Dose Ordered Sig/El Route Start Time Stop Time Status Last Admin Dose Admin Ondansetron HCl 4 mg Q4HP PRN IV 05/02/24 22:30 Acetaminophen 650 mg Q6HP PRN PO 05/02/24 22:30 05/12/24 08:43 650 MG Chlordiazepoxide HCl 25 mg Q6HPRN PRN PO 05/02/24 22:30 Diagnostic Test (Pha) 1 strip ACHS 05/11/24 11:30 05/15/24 06:25 1 STRIP Insulin Human Regular ACHS SC 05/11/24 11:30 05/15/24 06:24 3 UNITS Dextrose 50 ml UD PRN IV 05/11/24 11:00 Levofloxacin 750 mg DAILY PO 05/12/24 10:00 05/15/24 10:12 750 MG Acetaminophen/ Hydrocodone Bitart 1 tab Q4HPRN PRN PO 05/12/24 15:15 05/15/24 10:13 1 TAB Vancomycin HCl 0 ml @ 0 mls/hr UD IV 05/12/24 18:30 Vancomycin HCl 250 ml @ 200 mls/hr Q8H IV 05/13/24 09:00 05/15/24 10:13 200 MLS/HR Laboratory Results Laboratory Tests 05/10/24 12:31 05/15/24 08:49 Microbiology Microbiology Date/Time Source Procedure Growth Status 05/02/24 21:50 Blood Blood Culture - Final NO GROWTH AFTER 5 DAYS OF INCUBATION. Complete Labs and/or images reviewed: Labs reviewed by me Assessment/Plan Assessment/Plan Right foot cellulitis Right 2nd toe osteomyelitis status post right partial 2nd toe amputation Uncontrolled diabetes mellitus Electrolyte imbalance Continuing current management. Continuing with IV antibiotic clindamycin and ceftriaxone. The MRI of the foot showed osteomyelitis Status post right partial 2nd toe amputation Continuing IV pain medication and [place] for pain control Discussed with patient regarding to plan of care Replace electrolytes as needed Waiting for tissue culture. Working with pillowcase cleaner to see if I can set up wound care as outpatient for patient since he is homeless. Per CM, patient cannot have wound care clinic since he is homeless [facility] ID specialist and surgeon. Per infectious disease specialist, patient can be d/c with PO meds. Waiting for culture. Patient need intense wound care to make sure his wound heal appropriately. DC to SNF for wound care. Waiting for SNF bed available. Plan discussed with: Patient Date of Service: May 14, 2024 Billing Provider: BRAD JUDGE MD Common Visit Codes: [id number] INP/OBS CARE(HIGH) BRAD JUDGE MD May 15, 2024 11:11
--- NOTE | 2024-05-15 11:12 | DVHPN2 ---
Subjective The patient is seen and examined at bedside. Status post 2nd toe amputation. Patient complained of pain in the foot. No fever or chill overnight. Reviewed: Care Plan, H&P, Labs, Medications, Previous Orders, Radiology General: Per HPI Objective Vitals Vital Signs Date Time Temp Pulse Resp B/P (MAP) Pulse Ox O2 Delivery O2 Flow Rate FiO2 05/15/24 09:00 97.5 57 16 118/77 (91) 98 97.5 05/14/24 20:00 Room Air* 0 21 Intake/Output Intake and Output 05/15/24 07:00 Intake Total 1320 ml Output Total 1400 ml Balance -80 ml Intake Oral 1070 ml IV Total 250 ml Output Urine Total 1400 ml # Bowel Movements 1 General Appearance: Alert, Oriented X3, Cooperative HEENT: Atraumatic, PERRLA, EOMI, Mucous membr. moist/pink Cardiovascular: Regular rate, Normal S1, Normal S2 Abdomen: Normal bowel sounds Neuro: Cranial nerves 3-12 NL Psych/Mental Status: Mental status NL Medications Current Medications Medications Dose Ordered Sig/El Route Start Time Stop Time Status Last Admin Dose Admin Ondansetron HCl 4 mg Q4HP PRN IV 05/02/24 22:30 Acetaminophen 650 mg Q6HP PRN PO 05/02/24 22:30 05/12/24 08:43 650 MG Chlordiazepoxide HCl 25 mg Q6HPRN PRN PO 05/02/24 22:30 Diagnostic Test (Pha) 1 strip ACHS 05/11/24 11:30 05/15/24 06:25 1 STRIP Insulin Human Regular ACHS SC 05/11/24 11:30 05/15/24 06:24 3 UNITS Dextrose 50 ml UD PRN IV 05/11/24 11:00 Levofloxacin 750 mg DAILY PO 05/12/24 10:00 05/15/24 10:12 750 MG Acetaminophen/ Hydrocodone Bitart 1 tab Q4HPRN PRN PO 05/12/24 15:15 05/15/24 10:13 1 TAB Vancomycin HCl 0 ml @ 0 mls/hr UD IV 05/12/24 18:30 Vancomycin HCl 250 ml @ 200 mls/hr Q8H IV 05/13/24 09:00 05/15/24 10:13 200 MLS/HR Laboratory Results Laboratory Tests 05/10/24 12:31 05/15/24 08:49 Microbiology Microbiology Date/Time Source Procedure Growth Status 05/02/24 21:50 Blood Blood Culture - Final NO GROWTH AFTER 5 DAYS OF INCUBATION. Complete Assessment/Plan Assessment/Plan Right foot cellulitis Right 2nd toe osteomyelitis status post right partial 2nd toe amputation Uncontrolled diabetes mellitus Electrolyte imbalance Continuing current management. Continuing with IV antibiotic clindamycin and ceftriaxone. The MRI of the foot showed osteomyelitis Status post right partial 2nd toe amputation Continuing IV pain medication and [place] for pain control Discussed with patient regarding to plan of care Replace electrolytes as needed Waiting for tissue culture. Working with upper caser to see if I can set up wound care as outpatient for patient since he is homeless. Per CM, patient cannot have wound care clinic since he is homeless [facility] ID specialist and surgeon. Per infectious disease specialist, patient can be d/c with PO meds. Waiting for culture. Patient need intense wound care to make sure his wound heal appropriately. DC to SNF for wound care. Waiting for CM to arrange SNF. BRAD JUDGE MD May 15, 2024 11:12
[2024-05-15 13:00] VITALS: BP 119/80; PULSE 78; RESP 17; TEMP 98; O2SAT 96
[2024-05-15] MEDS: VANCOMYCIN 1GM/200ML PREMIX 200 ML IV SCH (20:21)
[2024-05-15 21:00] VITALS: BP 96/63; PULSE 81; RESP 20; TEMP 98; O2SAT 95
--- NOTE | 2024-05-16 22:12 | DVHPN2 ---
Consult Progress Note Date Seen: May 15, 2024 Subjective Patient reports: Feels better (patient to go to [facility]) Objective vital signs Vital Sign Date Time Temp Pulse Resp B/P (MAP) Pulse Ox O2 Delivery O2 Flow Rate FiO2 05/15/24 21:00 98.0 81 20 96/63 (74) 95 98.0 05/15/24 20:00 Room Air* 0 21 Total Intake and Output 05/15/24 05/15/24 05/16/24 15:00 23:00 07:00 Intake Total 250 ml 1410 ml Output Total 1600 ml 1650 ml Balance -1350 ml -240 ml medications PHYSICAL EXAM: - GENERAL: Alert and oriented x 3. No acute distress. Well-nourished. ? - EYES: EOMI. Anicteric. ?- HENT: Moist mucous membranes. No scleral icterus. No cervical lymphadenopathy. ?- LUNGS: Clear to auscultation bilaterally. No accessory muscle use.? - CARDIOVASCULAR: Regular rate and rhythm. No murmur. No JVD.? - ABDOMEN: Soft, non-tender and non-distended. No palpable masses.? - EXTREMITIES: No edema. Non-tender.?SKIN: No rashes or lesions. Warm. - NEUROLOGIC: No focal neurological deficits. CN II-XII grossly intact, but not individually tested.? - PSYCHIATRIC: Cooperative. Appropriate mood and affect. laboratory and microbiology Laboratory Tests 05/15/24 08:49 05/10/24 12:31 Test 05/10/24 12:31 Range/Units Serum Glucose 225 H 74-106 mg/dL Problem List/Assessment/Plan Problem List/Assessment/Plan ASSESSMENT AND PLAN: ID Problem List: - Homelessness - Polysubstance abuse - Uncontrolled diabetes mellitus - Hypertension - Right foot second toe osteomyelitis - Right foot cellulitis - Right foot diabetic ulcer Assessment This is a 49 y.o. male with a past medical history of homelessness, diabetes mellitus, hypertension, and polysubstance abuse, who presents with a right foot infection. The patient reports that the right foot infection has been ongoing for the last two months, with worsening redness over the last month. He notes discharge from the bottom of the second toe and some necrotic features. There was no trauma to the area, and he is unsure how the ulcer initially developed. Podiatry evaluation by Dr. Enriquez noted: - Pulses are good bilaterally. - Feet are cool to touch in the peripheral surfaces. - Right second toe ulcer measuring 1 cm x 0.5 cm; hyperkeratotic, full thickness, bleeding with some purulent drainage. Laboratory studies revealed a WBC of 4.5, hemoglobin of 16.1, platelet count of 271, and an elevated blood glucose of 407 mg/dL. Imaging studies: - CT of the right foot showed a focal lytic lesion in the distal tip of the second distal phalanx, which could represent osteomyelitis. There is a linear lucency into the distal tibia and fibula, possibly sequelae of prior trauma of indeterminate chronicity. Diffuse subcutaneous edema is noted in the right foot. - MRI of the right foot shows diffuse subcutaneous soft tissue edema and swelling, most prominent at the second digit, which may represent cellulitis. There is diffuse T1 signal change associated with the distal phalanx of the second digit, suspicious for osteomyelitis. 05/08: patient underwent debridement of his right second toe , incision was made on the distal tip of the digit and was deep into the level of the bone and the digit was removed at the distal inter phalangeal joint level, the remaining bone appeared intact , no signs of osteomyelitis remaining. blood cultures are no growth to date 05/09: tolerating antibiotics 05/10: awaiting tissue culture results , white count is normal 05/11: Blood cultures are improved 05/12: white count is normal , blood sugar is in the 200s 05/14: bllod sugars remain elevated Plan: - consider piccline placement once patient has been placed at [facility] - keep blood sugars under 180 to optimize wound healing - if patient is to go to [facility] then preference is patient continue IV antibiotics for treatment of osteomyelitis - Continue broad-spectrum antibiotics (currently receiving IV vancomycin and IV Ceftriaxone) while inpatient for 6 weeks , tentatively 06/11/24 - follow up on operative cultures - close follow up with podiatry as well as outpatient wound care to ensure wound continues to heal , would emphasize the importance with having close follow up with primary doctor for seeking improvement of blood glucose - Recommend go home with an insulin regimen , patient states hes out of insulin - Address uncontrolled diabetes mellitus with endocrinology consult for glycemic management. - Provide social work consult to assist with homelessness and substance abuse resources. - Monitor vital signs and glucose levels closely. Isolation Precautions: Standard Assessment and plan were discussed with the patient as written above Plan is subject to change pending incorporation of new incoming information/diagnostics. Updates may be added as addendum at the bottom (OR TOP) of this note Thank you for this interesting consult. ID will continue to follow. Please contact Infectious Disease for any questions or concerns. May Mcdaniels M.D. [facility] Plan discussed with: Patient Dietary Evaluation Review Comments: 1) Consider PACO 1 pkt BID for wound 2) Continue current plan of care Expected Outcomes/Goals: 1) Pt labs to improve 2) F/U in 3-5 days MAY MCDANIELS MD May 16, 2024 22:12
--- NOTE | 2024-05-17 16:46 | DVHDS2 ---
Discharge Summary Date of Admission May 02, 2024 at 22:22 Date of Discharge: May 15, 2024 Admitting Diagnosis Right foot cellulitis Right 2nd toe osteomyelitis Uncontrolled diabetes mellitus Electrolyte imbalance Labs/Diagnostic Data: Laboratory Results Test 05/15/24 16:48 05/15/24 15:46 05/15/24 08:49 05/10/24 12:31 POC Glucose 249 mg/dl (70-106) Vancomycin Level Trough 20.8 ug/mL (5-10) White Blood Count 4.8 10^3/uL (4.4-10.8) Red Blood Count 5.06 10^6/uL (4.5-5.90) Hemoglobin 15.8 g/dL (13.5-17.5) Hematocrit 46.4 % (41.0-53.0) Mean Corpuscular Volume 91.8 fL (80.0-100.0) Mean Corpuscular Hemoglobin 31.3 pg (28.0-32.0) Mean Corpuscular Hemoglobin Concent 34.1 g/dL (32.0-36.0) Red Cell Distribution Width 13.1 % (11.8-14.3) Platelet Count 277 10^3/uL (140-450) Mean Platelet Volume 6.8 fL (6.9-10.8) Neutrophils (%) (Auto) 52.6 % (37.0-80.0) Lymphocytes (%) (Auto) 37.8 % (10.0-50.0) Monocytes (%) (Auto) 6.8 % (0.0-12.0) Eosinophils (%) (Auto) 2.1 % (0.0-7.0) Basophils (%) (Auto) 0.7 % (0.0-2.0) Neutrophils # (Auto) 2.5 10 ^3/uL (1.6-8.6) Lymphocytes # (Auto) 1.8 10 ^3/uL (0.4-5.4) Monocytes # (Auto) 0.3 10 ^3/uL (0-1.3) Eosinophils # (Auto) 0.1 10 ^3/uL (0-0.8) Basophils # (Auto) 0 10 ^3/uL (0-0.2) Nucleated Red Blood Cells 1.1 % Creatinine 0.73 mg/dL (0.700-1.30) Glomerular Filtration Rate Calc 111 mL/min (>90) Sodium Level 137 mmol/L (136-145) Potassium Level 4.5 mmol/L (3.5-5.1) Chloride Level 103 mmol/L (98-107) Carbon Dioxide Level 30 mmol/L (20-31) Anion Gap 4 (5-15) Blood Urea Nitrogen 7 mg/dL (9-23) BUN/Creatinine Ratio 8.8 (10.0-20.0) Serum Glucose 225 mg/dL (74-106) Calcium Level 9.6 mg/dL (8.7-10.4) Test 05/02/24 21:50 Lactic Acid Level 1.1 mmol/L (0.4-2.0) Plasma/Serum Blood Alcohol 3.8 mg/dL (<10) Other Laboratory Tests 05/15/24 08:49 05/10/24 12:31 Brief Hx & Hospital Course: This is a 49 years old male come to emergency department because of right foot infection. The patient had noticed about one month history of redness and ulcer of his right foot. The patient is diabetic and his diabetes is not well controlled. The patient recently become homeless so he does not have any appropriate foot care. The patient was admitted. MRI showed 2nd toe on the right side had osteomyelitis. 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 After surgery the wound healing well. The patient was on IV antibiotic with vancomycin and Zosyn. Infectious Disease doctor, Dr Jo, recommend the patient on IV vancomycin and Rocephin for tender to six weeks total and can be stopped on June 11, 2024. The patient also needs intense wound care for two weeks. The patient is homeless. So we will transfer the patient to shelter home facility for further complicated wound care and also to continuing his antibiotic. Today the patient's has been at shelter home facility so I am discharge him. Follow up with primary care physician 1-2 weeks. Follow up with infectious disease doctor per schedule. Follow up with detail sergeant per schedule. Activity as tolerated. Diet per home diet. Physical exam: HEENT: Normocephalic atraumatic pupils equal react to light and accommodation. Extraocular muscles intact, conjunctiva pink, oropharynx moist, no thrush, no exudate. Lymphatic: No lymphadenopathy Cardiovascular exam: S1, S2 was heard. No murmurs, rubs, gallops Lung: Clear on auscultation bilaterally, no wheeze, rale, rhonchi. GI: Abdominal soft, nondistended, nontenderness, positive bowel sounds. Extremity: No crepitus, cyanosis, edema. Pedal pulses present bilateral. Full range of motion. Skin: Normal turgor, no rash. Psych: Alert, oriented x3. Neurology: No focal deficits, cranial nerve II to XII grossly intact. Condition at Discharge: Stable Final Diagnosis/Problems List 1. Right foot second toe osteomyelitis 2. Right foot toe cellulitis 3. Right foot diabetic foot ulcer 4. Diabetes type 2 uncontrolled 5. Electrolyte imbalance 6. Homelessness Discharge Disposition: Shelter Facility Discharge Instruct/Medications Diet: Consistent carbohydrate, Cardiac 2g Na,low cholest Activity: No Restrictions, As Tolerated Follow Up/Referral: pcp 1-2 weeks Medications: See meds list Discharge Statement: "Patient was advised to return to the ER or call 911 if any headaches, dizziness, shortness of breath, chest pain, abdominal pain, bleeding, fevers, or worsening of medical condition. Patient was counseled about treatment plan, medications, possible side effects, patientverbalized understanding. All questions were answered to the best of my ability. This discharge took greater then 30 minutes in planning, reviewing documentation, counseling the patient, and discussing with other team members." ASSESSMENT ASSESSMENT Assessment 1. Right foot second toe osteomyelitis2. Right foot toe cellulitis3. Right foot diabetic foot ulcer Date of Service: May 15, 2024 Billing Provider: BRAD JUDGE MD Common Visit Codes: 69041-PIR/OBS DISCH DAY >30min BRAD JUDGE MD May 17, 2024 16:46
== END 2024-05-15 21:48 | DRG 314 ==
LOC: EDBD 09:16 → ER 09:16 → OVERFLOW 22:22 → EAST 05-04 02:00 → CENTRAL 05-11 09:59
PROVIDERS: ADMIT Nurse Practitioner; ATTEND Internal Medicine
PROC: 0Y6R0Z3 Detachment at Right 2nd Toe, Low, Open Approach (ICD-10-PCS; principal; 2024-05-08 12:20)
DX: E11.69 Type 2 diabetes mellitus with other specified complication (principal); E87.8 Other disorders of electrolyte and fluid balance, not elsewhere classified; L03.115 Cellulitis of right lower limb; L97.519 Non-pressure chronic ulcer of other part of right foot with unspecified severity; M86.8X7 Other osteomyelitis, ankle and foot; E11.10 Type 2 diabetes mellitus with ketoacidosis without coma; E11.621 Type 2 diabetes mellitus with foot ulcer; N12 Tubulo-interstitial nephritis, not specified as acute or chronic; S00.11XA Contusion of right eyelid and periocular area, initial encounter; I10 Essential (primary) hypertension; X58.XXXA Exposure to other specified factors, initial encounter; Z88.3 Allergy status to other anti-infective agents; Z59.00 Homelessness unspecified; Z83.3 Family history of diabetes mellitus; Z59.82 Transportation insecurity; Y93.89 Activity, other specified; Y92.89 Other specified places as the place of occurrence of the external cause; Y99.8 Other external cause status
CPT/HCPCS: 36415; 73700; 73718; 80048; 80202; 80320; 82565; 82962; 83605; 85025; 87040; 97163; G0378; J1815; J2250; J2543; J2704; J3490

== ENCOUNTER 2024-08-10 20:50 | Emergency (ER) | payer MEDICAID, OTHER ==
[~2024-08-10] VITALS: Ht 182.9 cm; Wt 82.4 kg
[2024-08-10 20:55] VITALS: BP 100/70; RESP 18; O2SAT 94
[2024-08-10] MEDS ORDERED: NITROGLYCERIN 0.4 MG SL TAB SL ONE (21:00)
[2024-08-10 21:20] LABS: Basophils # (auto) 0 10 ^3/uL (0-0.2); Basophils % (auto) 0.2 % (0.0-2.0); Eosinophils # (auto) 0 10 ^3/uL (0-0.8); Eosinophils % (auto) 0.1 % (0.0-7.0); Hematocrit 41.6 % (41.0-53.0); Lymphocytes % (auto) 8.2 % (10.0-50.0); Mean Corpuscular Hemoglobin 29.3 pg (28.0-32.0); Mean Corpuscular Hgb Conc. 33.7 g/dL (32.0-36.0); Mean Corpuscular Volume 86.9 fL (80.0-100.0); Monocytes # (auto) 0.9 10 ^3/uL (0-1.3); Monocytes % (auto) 7.4 % (0.0-12.0); Neutrophils # (auto) 9.8 10 ^3/uL (1.6-8.6); Neutrophils % (auto) 84.1 % (37.0-80.0); Platelet Count (auto) 286 10^3/uL (140-450); Red Blood Cells 4.78 10^6/uL (4.5-5.90); Red Cell Distribution Width 12.6 % (11.8-14.3); White Blood Cell 11.6 10^3/uL (4.4-10.8)
--- NOTE | 2024-08-10 21:26 | DVH ---
CHEST RADIOGRAPH Indication: CP Technique: Single frontal view of the chest was obtained Comparison: XY CHEST PORTABLE on DOS: 10/10/22, CHEST PORTABLE on DOS: 06/07/21, CHEST PORTABLE on DOS : 03/05/20 FINDINGS: Lines and Tubes: None Lungs: Right lower lobe airspace disease. Pleura: No effusion. No pneumothorax. Cardiomediastinal contours: Unremarkable Bones: No acute osseous abnormality. IMPRESSION: 1. Right lower lobe airspace disease.
[2024-08-10 21:37] LABS: Alanine Aminotransferase 12 U/L (7-40); Albumin 4.3 g/dL (3.2-4.8); Anion Gap 9 (5-15); Aspartate Aminotransferase 15 U/L (13-40); BUN/Creatinine Ratio 7.1 (10.0-20.0); Calcium 9.6 mg/dL (8.7-10.4); Carbon Dioxide 28 mmol/L (20-31); Potassium 3.5 mmol/L (3.5-5.1)
[2024-08-10 21:38] LABS: Bilirubin, Total 1.1 mg/dL (0.2-1.0); Total Protein 7.2 g/dL (5.7-8.2)
[2024-08-10 21:53] LABS: Alkaline Phosphatase 181 U/L (46-116); Blood Urea Nitrogen 7 mg/dL (9-23); Chloride 89 mmol/L (98-107); Sodium 126 mmol/L (136-145)
[2024-08-10 21:55] LABS: Glucose 484 mg/dL (74-106)
[2024-08-10 22:02] VITALS: PULSE 102
--- NOTE | 2024-08-11 00:04 | ED.PDOC ---
HPI Comments This patient is a 49-year-old homeless male who arrives the ED today for evaluation of chest pain and shortness a breath concerns. Patient appears to be intoxicated at time of evaluation. Patient states a history of methamphetamine use. Patient states the symptoms have been consistent for the past day and a half, but that he has had similar sensations off and on over several months. Patient denies any fever nausea or vomiting. Patient was mildly tachycardic at arrival. Chief Complaint: Chest Pain Time Seen by MD: 20:52 Primary Care Provider: NEW/ Reviewed Notes: Nurses Notes Allergies: Coded Allergies: Sulfamethoxazole w/Trimethoprim (Verified Allergy, Severe, 03/06/20) PRURITUS, THROAT SWELLING Home Meds No Active Prescriptions or Reported Meds Information Source: Patient Mode of Arrival: Ambulatory Severity: Moderate Timing: Days Duration: Since onset Prehospital treatment: None Location: Substernal Quality: Sharp, Burning, Tightness Onset: At Rest Cardiac Risk Factors: Drugs PE Risk Factors: None History of: Similar pain in past Associated Signs and Symptoms: SOB Past Medical History PAST MEDICAL HISTORY: DM, HTN Surgical History: Denies all surgeries Family History Family History: Reviewed,noncontributory to illness Social History Smoker: Non-Smoker Alcohol: Heavy Drugs: Marijuana, Methamphetamine Lives In: Home Constitutional: denies: chills, diaphoresis, fatigue, fever, malaise, sweats, weakness, others EENTM: denies: blurred vision, double vision, ear bleeding, ear discharge, ear drainage, ear pain, ear ringing, eye pain, eye redness, hearing loss, mouth pain, mouth swelling, nasal discharge, nose bleeding, nose congestion, nose pain, photophobia, tearing, throat pain, throat swelling, voice changes, others Respiratory: reports: SOB at rest; denies: cough, hemoptysis, orthopnea, shortness of breath, SOB with excertion, stridor, wheezing, others Cardiovascular: reports: chest pain, dizzy spells; denies: diaphoresis, Dyspnea on exertion, edema, irregular heart beat, left arm pain, lightheadedness, palpitations, PND, syncope, others Gastrointestinal: denies: abdomen distended, abdominal pain, blood streaked bowels, constipated, diarrhea, dysphagia, difficulty swallowing, hematemesis, melena, nausea, poor appetite, poor fluid intake, rectal bleeding, rectal pain, vomiting, others Genitourinary: denies: burning, dysuria, flank pain, frequency, hematuria, incontinence, penile discharge, penile sore, pain, testicle pain, testicle sw elling, urgency, others Neurological: denies: dizziness, fainting, headache, left sided numbness, left sided weakness, numbness, paresthesia, pre-existing deficit, right sided numbness, right sided weakness, seizure, speech problems, tingling, tremors, weakness, others Musculoskeletal: denies: back pain, gout, joint pain, joint swelling, muscle pain, muscle stiffness, neck pain, others Integumetry: denies: bruises, change in color, change in hair/nails, dryness, laceration, lesions, lumps, rash, wounds, others Allergic/Immunocompromised: denies: Difficulty Healing, Frequent Infections, Hives, Itching, others Hematologic/Lymphatic: denies: anemia, blood clots, easy bleeding, easy bruising, swollen glands, others Endocrine: denies: excessive hunger, excessive sweating, excessive thirst, excessive urination, flushing, intolerance to cold, intolerance to heat, unexplained weight gain, unexplained weight loss, others Psychiatric: denies: anxiety, bipolar disorder, depression, hopeless, panic disorder, schizophrenia, sleepless, suicidal, others Physical Exam Exam Comments Patient appears to be intoxicated by an unknown drug. Patient is malodorous, dirty and not well kempt. General Appearance: Moderate Distress (Patient was in [id number] distress at time of evaluation.), Normal HEENT: Normal ENT Inspection, Pharynx Normal, TMs Normal Neck: Full Range of Motion, Non-Tender, Normal, Normal Inspection Respiratory: Chest Non-Tender, No Accessory Muscle Use, Other (Patient has decreased breath sounds in the right lower lobe region. Patchy wheezing appreciated throughout.) Cardiovascular: No Edema, No JVD, No Murmur, No Gallop, Normal Peripheral Pulses, Tachycardia Breast Exam: Deferred Gastrointestinal: No Organomegaly, Non Tender, No Pulsatile Mass, Normal Bowel Sounds, Soft Genitalia: Deferred Pelvic: Deferred Rectal: Deferred Extremities: No calf tenderness, Normal capillary refill, Non-tender, No pedal edema Neurologic: NOT DONE Cerebellar Function: NOT DONE Reflexes: NOT DONE Skin: Dry, Normal Color, Warm Lymphatic: No Adenopathy Was a procedure done? Was a procedure done?: No CP Differential Dx Differential Diagnosis: A-fib, A-Flutter, Anxiety / Panic Attack, Atrial D ysrhythmia, AV Block 1st Degree, AV Block 2nd Degree, CO Differential Diagnosis: CHF, Other (Illicit drug use, methamphetamine abuse, alcoholism) X-Ray, Labs, Meds, VS Vital Signs Date Time Temp Pulse Resp B/P (MAP) Pulse Ox O2 Delivery O2 Flow Rate FiO2 08/10/24 22:02 102 08/10/24 20:55 99.3 102 18 100/70 (80) 94 Lab Test 08/10/24 22:09 08/10/24 21:03 Range/Units Troponin I High Sensitivity < 3 L < 3 L </=54 ng/L White Blood Count 11.6 H 4.4-10.8 10^3/uL Red Blood Count 4.78 4.5-5.90 10^6/uL Hemoglobin 14.0 13.5-17.5 g/dL Hematocrit 41.6 41.0-53.0 % Mean Corpuscular Volume 86.9 80.0-100.0 fL Mean Corpuscular Hemoglobin 29.3 28.0-32.0 pg Mean Corpuscular Hemoglobin Concent 33.7 32.0-36.0 g/dL Red Cell Distribution Width 12.6 11.8-14.3 % Platelet Count 286 140-450 10^3/uL Mean Platelet Volume 7.3 6.9-10.8 fL Neutrophils (%) (Auto) 84.1 H 37.0-80.0 % Lymphocytes (%) (Auto) 8.2 L 10.0-50.0 % Monocytes (%) (Auto) 7.4 0.0-12.0 % Eosinophils (%) (Auto) 0.1 0.0-7.0 % Basophils (%) (Auto) 0.2 0.0-2.0 % Neutrophils # (Auto) 9.8 H 1.6-8.6 10 ^3/uL Lymphocytes # (Auto) 1.0 0.4-5.4 10 ^3/uL Monocytes # (Auto) 0.9 0-1.3 10 ^3/uL Eosinophils # (Auto) 0 0-0.8 10 ^3/uL Basophils # (Auto) 0 0-0.2 10 ^3/uL Nucleated Red Blood Cells 0.0 % Sodium Level 126 L 136-145 mmol/L Potassium Level 3.5 3.5-5.1 mmol/L Chloride Level 89 L 98-107 mmol/L Carbon Dioxide Level 28 20-31 mmol/L Anion Gap 9 5-15 Blood Urea Nitrogen 7 L 9-23 mg/dL Creatinine 0.98 0.700-1.30 mg/dL Glomerular Filtration Rate Calc 94 >90 mL/min BUN/Creatinine Ratio 7.1 L 10.0-20.0 Serum Glucose 484 *H 74-106 mg/dL Calcium Level 9.6 8.7-10.4 mg/dL Total Bilirubin 1.1 H 0.2-1.0 mg/dL Aspartate Amino Transferase (AST) 15 13-40 U/L Alanine Aminotransferase (ALT) 12 7-40 U/L Alkaline Phosphatase 181 H 46-116 U/L Total Protein 7.2 5.7-8.2 g/dL Albumin 4.3 3.2-4.8 g/dL X-Ray, Labs, Meds, VS Comment All studies performed the ED were evaluated by me personally. Laboratories revealed a hyperglycemic state, hyponatremia, mild leukocytosis with a mildly elevated alk phos. Imaging studies were remarkable for right lower lobe airspace disease. EKG revealed a sinus tachycardia with a rate of 102. Abnormal R-wave progression, abnormal inferior Q-waves with a borderline prolonged QT interval. NE interval of 152 and QT interval of 376. Treatment nursing attempted to locate the patient multiple times, but informed me that it appears the patient has eloped from the facility. Time of 1ST Reevaluation: 00:02 Reevaluation 1ST: Unchanged Consultation: PCP, Cardiology Patient Education/Counseling: Diagnosis, Treatment Family Education/Counseling: Diagnosis, Treatment Departure 1 Departure Time of Disposition: 00:03 Impression: Primary Impression: Chest pain Additional Impression: Shortness of breath Disposition: 07 LEFT AWOL/ELOPED Condition: Fair e-Prescriptions No Active Prescriptions or Reported Meds Discharged With: Self Critical Care Note Critical Care Time?: No Stability Stability form required: No Heart Score Heart Score: Heart Score Response (Comments) Value History Slightly Suspicious 0 EKG Repolarization Disturb 1 Age 45-64 1 Risk Factors 1 or 2 risk factors 1 Troponin Normal limit 0 Total 3 ELIEL SCHROEDER PAC Aug 11, 2024 00:04
--- NOTE | 2024-08-12 21:15 | ECG ---
[facility] Test Date: 2024-08-10 Test Time: 20:59:07 Pat Name: TOMMIE MERCHANT Department: ER Room: Gender: M Paper Winder: JOE : 1975 Requested By: ELIEL SCHROEDER Order Number: [id number] Reading MD: Jaylen Tran Measurements Intervals [place] Rate: 101 P: 39 SD: 156 QRS: -72 QRSD: 122 T: 48 QT: 397 QTc: 515 Interpretive Statements Sinus tachycardia Ventricular premature complex Nonspecific IVCD with LAD Inferior infarct, old Consider anterior infarct Baseline wander in lead(s) V2,V3 Electronically Signed On 08-14-2024 21:54:00 PST by Jaylen Tran Please click the below link to view image of tracing.
--- NOTE | 2024-08-12 21:15 | ECG ---
[facility] Test Date: 2024-08-10 Test Time: 20:59:40 Pat Name: TOMMIE MERCHANT Department: ER Room: Gender: M Doormaker: JOE : 1975 Requested By: ELIEL SCHROEDER Order Number: [id number] Reading MD: Jaylen Tran Measurements Intervals [place] Rate: 99 P: 31 AL: 159 QRS: -66 QRSD: 98 T: 49 QT: 401 QTc: 515 Interpretive Statements Sinus rhythm Abnormal R-wave progression, late transition Inferior infarct, old Prolonged QT interval Baseline wander in lead(s) V1 Electronically Signed On 08-14-2024 21:54:05 PST by Jaylen Tran Please click the below link to view image of tracing.
--- NOTE | 2024-08-13 14:40 | ECG ---
[facility] Test Date: 2024-08-10 Test Time: 22:02:54 Pat Name: TOMMIE MERCHANT Department: ER Room: Gender: M Manager Intensive Care: : 1975 Requested By: ELIEL SCHROEDER Order Number: [id number] Reading MD: Jaylen Tran Measurements Intervals [place] Rate: 102 P: 35 MI: 152 QRS: -78 QRSD: 102 T: 59 QT: 376 QTc: 490 Interpretive Statements Sinus tachycardia Low voltage, extremity leads Abnormal R-wave progression, late transition Abnormal inferior Q waves Borderline prolonged QT interval Baseline wander in lead(s) V2 Electronically Signed On 08-14-2024 21:54:48 PST by Jaylen Tran Please click the below link to view image of tracing.
== END 2024-08-10 23:33 | disposition left against medical advice (07) ==
LOC: ER 20:50
DX: R07.89 Other chest pain (principal); R06.02 Shortness of breath; I10 Essential (primary) hypertension; E11.9 Type 2 diabetes mellitus without complications; F10.90 Alcohol use, unspecified, uncomplicated; F15.90 Other stimulant use, unspecified, uncomplicated; Z88.2 Allergy status to sulfonamides; Y90.0 Blood alcohol level of less than 20 mg/100 ml
CPT/HCPCS: 36415; 71045; 80053; 84484; 85025; 93005